=== PATIENT | male | born 1935 | race Caucasian/White ===

== ENCOUNTER 2017-02-03 09:51 | Observation (INO) ==
[2017-02-03 12:43] LABS: MANUAL DIFF NEEDED? NO
[2017-02-03 12:47] LABS: BASO% 0.2 % (0.0-0.8); EOS# 0.04 X1000 (0.0-0.7); EOS% 0.3 % (0.0-10.0); HEMOGLOBIN 16.7 g/dL (14.0-18.0); IMM GRAN# 0.35 X1000 (0.0-0.04); IMM GRAN% 2.4 % (0.0-0.5); LYMPH# 1.07 X1000 (1.2-3.4); LYMPH% 7.3 % (20.5-51.1); MCH 32.6 PG (27-31); MCHC 33.4 g/dL (33-37); MCV 97.5 FL (81-99); MONO% 8.8 % (1.7-9.3); MPV 10.4 FL (7.4-10.4); PLT 199 X1000 (130-400); RBC 5.13 XMIL (4.7-6.1)
[2017-02-03 12:57] LABS: INR 1.08; PROTIME 11.4 Seconds (9.2-11.7)
[2017-02-03 13:05] LABS: CALCIUM 8.4 mg/dL (8.8-10.2); POTASSIUM 4.2 mmol/L (3.5-5.1)
[2017-02-03] MEDS ORDERED: NS 250 ML ONE (13:29)
--- NOTE | 2017-02-03 14:41 | Diag Imaging Result Doc PS360 ---
EXAM: CHEST-PORTABLE HISTORY: PICC PLACEMENT TECHNIQUE: Portable upright COMPARISON: 01/09/2015 FINDINGS: There is a right-sided PICC line. Tip overlies the junction of the distal superior vena cava and right atrium. The lungs are well expanded. No cardiomegaly. There are no infiltrates. No pleural effusions identified. IMPRESSION: Right-sided PICC line in good position. Electronically signed by Trevin Morales 02/03/2017 2:38 PM
[2017-02-03 15:30] LABS: URINE MICRO REVIEW NEEDED? NO; URINE SOURCE CLEAN CATCH
[2017-02-03 15:37] LABS: BILIRUBIN URINE NEGATIVE (NEGATIVE); BLOOD URINE LARGE (NEGATIVE); COLOR YELLOW; GLUCOSE URINE NEGATIVE (NEGATIVE); LEUKOCYTES URINE MODERATE (NEGATIVE); NITRITE URINE POSITIVE (NEGATIVE); PROTEIN URINE TRACE mg/dL (NEGATIVE); SP GRAVITY URINE 1.017; TURBIDITY URINE HAZY (CLEAR); UROBILINOGEN URINE NORMAL (NORMAL)
[2017-02-03 15:38] LABS: UR EPITHELIAL CELLS <10 /HPF (<10); URINE BACTERIA 4+ /HPF; URINE CULTURE NEEDED? YES; URINE RBC <10 /HPF (<10); URINE WBC TNTC /HPF (<10)
--- NOTE | 2017-02-03 15:43 | EKG Report ---
Test Performed on : 02/03/2017 3:03:41 PM Test Reason : possible Afib Blood Pressure : / mmHG Vent. Rate : 056 BPM Atrial Rate : 056 BPM P-R Int : 196 ms QRS Dur : 146 ms QT Int : 416 ms P-R-T Axes : 051 -68 069 degrees QTc Int : 401 ms Sinus bradycardia. with occasional premature ventricular complexes. Left axis deviation Left bundle branch block Abnormal ECG When compared with ECG of 25-JAN-2015 13:00, premature ventricular complexes. are now present premature atrial complexes. are no longer present Left bundle branch block is now present Criteria for Septal infarct are no longer present Confirmed by Silvio Cross MD ([id number]) on 02/03/2017 8:39:17 PM
[2017-02-03] MEDS: INVANZ 1 GM/NS 1 GM/50 ML IVPB IV SCH (16:37)
[2017-02-03] MEDS ORDERED: AMBIEN PO SCH (21:00)
[2017-02-03] MEDS: LOPRESSOR PO SCH (21:24)
[2017-02-03] MEDS: ELIQUIS PO SCH (21:25)
--- NOTE | 2017-02-04 00:29 | HISTORY AND PHYSICAL ---
SUBJECT: The patient was evaluated in my office last week with back pain, dysuria. HISTORY OF PRESENT ILLNESS: He is an 81-year-old white gentleman, who was self- catheterizing for the bladder drainage for neurogenic bladder, under the care of Dr. Fountain in [place]. He has a low blood pressure. Advised to stop blood pressure medicine. After workup, the patient was found to have a significant urinary tract infection, with Pseudomonas more than 100,000, Citrobacter more than 100,000, resistant to all oral antibiotics, except Primaxin. After returning, he is a little better, and we will continue to monitor symptoms and signs of infection. Explained he needs IV antibiotics. He decided to be admitted to the hospital for IV Invanz. I would arrange outpatient antibiotics after PICC line. As a result, he was admitted to the hospital. PAST MEDICAL HISTORY: 1. Coronary artery disease, with 2 stents. 2. BPH. 3. Chronic renal failure, creatinine 1.6. 4. Hypertension. 5. Gout. 6. Chronic back pain. 7. Erectile dysfunction. 8. Metabolic syndrome. 9. Neurogenic bladder. 10. Paroxysmal atrial fibrillation, status post cardioversion. 11. Secondary polycythemia, due to testosterone. PAST SURGICAL HISTORY: 1. Cardiac stents. 2. Achilles tendon repair. MEDICATIONS: Hytrin 5 mg daily, Eliquis 5 mg p.o. b.i.d., Plavix 75 daily, Ambien 10 daily, metoprolol 25 p.o. b.i.d., allopurinol 100 daily, Multaq 400 mg daily. ALLERGIES: Sulfa drugs. SOCIAL HISTORY: , 5 kids. 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 Lives in [place]. No smoking. No alcohol. No drug abuse. FAMILY HISTORY: Father at 68, unknown cause. Mom at 95, unknown cause. HEALTH MAINTENANCE: Flu vaccine 2015. Pneumococcal vaccine 2012. Last prostate December 2016. Colonoscopy 2005 in [place]. REVIEW OF SYSTEMS: HEENT: No headache. No vision problem. No earache. No sore throat. Neck: No goiter. No lymphadenopathy. No bruit. Cardiopulmonary: No chest pain, shortness of breath, PND, orthopnea. Gastrointestinal: No nausea, vomiting, abdominal pain. Genitourinary: History of hesitancy, frequency, dysuria, and back pain. Neurologic: No focal symptoms or weakness. PHYSICAL EXAMINATION: VITAL SIGNS: Afebrile. Pulse is 69, blood pressure is 136/68, 5 feet 11 inches , 210 pounds. HEENT: Atraumatic, normocephalic. Pupils equal, react to light. TMs are normal. Nose and throat within normal limits. NECK: Supple. No lymphadenopathy. No goiter. CHEST: Bilateral air entry. HEART: Sounds are regular. ABDOMEN: Belly is soft, nontender. Good bowel sounds. RECTAL: Deferred. NEUROLOGIC: Nonfocal. No obvious neurological deficits. INVESTIGATIONS: CBC: White cell count 14, hematocrit 50, platelets 199,000. PT 11, INR 1.0. SMA-7: Sodium 138, potassium 4.2, chloride 103, BUN 29, creatinine 1.3. Calcium 8.4. Urine dipstick was positive for infection. Urine cultures at [facility] positive for Pseudomonas, Citrobacter. Resistant to all antibiotics, except Primaxin. EKG showed normal sinus, left bundle branch block. Chest x-ray stable, with PICC line on the right side. ASSESSMENT: An 81-year-old white gentleman, admitted to the hospital with back pain, dysuria, with a neurogenic bladder with self-catheterization, associated with Pseudomonas and Citrobacter, with elevated white cell count. PLAN: 1. IV Invanz and outpatient IV antibiotics for 2 weeks. 2. Paroxysmal atrial fibrillation, status post cardioversion. Continue on Eliquis and Multaq, and Lopressor 25 p.o. b.i.d. 3. Outlet obstruction with Hytrin. 4. Chronic insomnia, with Ambien. 5. Gout, on allopurinol. 6. Erectile dysfunction. On testosterone replacement, causing secondary polycythemia. 7. Chronic back pain, with spondylosis, stable. 8. Coronary artery disease, status post couple of stents. Currently, on Eliquis. Followed by Dr. Rosenbaum. 9. We will follow up. cc: MD SB Bundy
[2017-02-04] MEDS: LOPRESSOR PO SCH (08:28)
[2017-02-04] MEDS: ELIQUIS PO SCH (08:28)
[2017-02-04] MEDS ORDERED: HYTRIN PO SCH (09:00)
[2017-02-04] MEDS ORDERED: MULTAQ PO SCH (09:00)
[2017-02-04] MEDS ORDERED: ZYLOPRIM PO SCH (09:00)
[2017-02-04] MEDS ORDERED: PLAVIX PO SCH (09:00)
[2017-02-04] MEDS: INVANZ 1 GM/NS 1 GM/50 ML IVPB IV SCH ×2 (11:45→14:00)
[2017-02-04 14:31] VITALS: BP 127/64
--- NOTE | 2017-02-08 12:26 | DISCHARGE SUMMARY ---
ADMISSION DATE: 02/03/2017 DISCHARGE DATE: 02/04/2017 DISCHARGING DIAGNOSIS: 1. Chronic back pain due to urinary tract infection associated with Pseudomonas aeruginosa and Citrobacter resistant to all oral antibiotics except Primaxin. SECONDARY DIAGNOSES: 1. Coronary artery disease with 2 stents. 2. Benign prostatic hypertrophy. 3. Neurogenic bladder. 4. Chronic kidney disease creatinine 1.4. 5. Hypertension. 6. Gout. 7. Chronic back pain. 8. Erectile dysfunction. 9. Metabolic syndrome. 10. Neurogenic bladder. 11. Paroxysmal atrial fibrillation status post cardioversion and secondary polycythemia due to testosterone. PROCEDURES: PICC line on the right side. [facility] consult for 2 weeks of IV antibiotics with meropenem. BRIEF HISTORY: Please see the H and P that was done on 02/03/2017. In brief he is 81-year-old white gentleman admitted to the hospital for observation status with back pain, dysuria associated with elevated white cell count. Urine was found to have Pseudomonas aeruginosa and Citrobacter resistant to all oral antibiotics except IV Primaxin. HOSPITAL COURSE: At the time of admission his white cell count 14,000. Repeat urine cultures positive for Citrobacter. He was doing self-cath under the care of Dr. Chang in [place]. He was placed on PICC line and arranged outpatient antibiotics with [facility] for 2 weeks. At the time of discharge he was bleeding on the site of the PICC line. INR is normal. He was taking Plavix and Eliquis. Advised the patient to stop the Plavix. LABS: CBC, white cell count 14, hematocrit 50, platelets 199,000, PT 11, INR 1.0. Urine cultures are positive for Citrobacter. SMA 7, sodium 138, potassium 4.2, chloride 103, BUN 39, creatinine 1.3. DISCHARGE INSTRUCTIONS: 1. Hytrin 5 mg daily, Eliquis 5 mg p.o. b.i.d., hold the Plavix, Ambien 10 as needed, metoprolol 25 p.o. b.i.d., allopurinol 100 daily, Multaq 400 daily, IV antibiotics with meropenem 1 g q.8 as per [facility] in 2 weeks. cc: Dr. Chang in [place] Hector Junior MD
== END 2017-02-04 16:44 | disposition home health service (06) ==
LOC: DIRADM 09:51 → INTOOBSV 09:51 → 3N 11:42
PROVIDERS: ADMIT Internal Medicine; ATTEND Internal Medicine

== ENCOUNTER 2018-06-23 05:12 | Observation (INO) ==
[2018-06-16 09:51] LABS: HEMATOCRIT 57.7 % (42.0-52.0); MCH 30.6 PG (27-31); MCHC 31.2 g/dL (33-37); MPV 10.2 FL (7.4-10.4); RBC 5.89 XMIL (4.7-6.1); WBC 8.49 X1000 (4.8-10.8)
[2018-06-16 10:02] LABS: INR 0.89; PROTIME 12.8 Seconds (11.0-16.0)
[2018-06-16 10:03] LABS: PTT 27.7 Seconds (22.3-41.8)
[2018-06-16 10:17] LABS: CALCIUM 8.9 mg/dL (8.8-10.2); CREATININE 1.2 mg/dL (0.7-1.2); POTASSIUM 4.7 mmol/L (3.5-5.1)
[2018-06-23] MEDS ORDERED: KEFZOL 1 GM/D5W 2 GM/100 ML IVPB ONE (05:41)
[2018-06-23] MEDS ORDERED: LR 1,000 ML ONE ×2 (05:41→08:57)
[2018-06-23] MEDS ORDERED: XYLOCAINE-MPF 2% ONE (06:30)
[2018-06-23] MEDS ORDERED: QUELICIN (DOSE) ONE (06:30)
[2018-06-23] MEDS ORDERED: FENTANYL ONE (06:30)
[2018-06-23] MEDS ORDERED: DIPRIVAN 1% ONE (06:30)
[2018-06-23] MEDS ORDERED: ROBINUL ONE (06:30)
[2018-06-23] MEDS ORDERED: EPHEDRINE ONE (07:02)
[2018-06-23] MEDS ORDERED: SODIUM CHLORIDE 0.9% 10 ML ONE (07:02)
[2018-06-23] MEDS ORDERED: DECADRON ONE (07:37)
[2018-06-23] MEDS ORDERED: ZOFRAN ONE (07:37)
[2018-06-23] MEDS ORDERED: B & O 15A SUPP ONE (08:42)
[2018-06-23 10:02] LABS: HEMATOCRIT 53.3 % (42.0-52.0); HEMOGLOBIN 16.7 g/dL (14.0-18.0); MCH 30.8 PG (27-31); MCHC 31.3 g/dL (33-37); MCV 98.3 FL (81-99); MPV 10.5 FL (7.4-10.4); RBC 5.42 XMIL (4.7-6.1); RDW 14.7 % (11.5-14.5); WBC 10.67 X1000 (4.8-10.8)
[2018-06-23] MEDS ORDERED: B & O 15A SUPP PR PRN (10:15)
[2018-06-23] MEDS ORDERED: TYLENOL PO PRN (10:15)
[2018-06-23] MEDS ORDERED: LABETALOL IV PRN (10:15)
[2018-06-23] MEDS ORDERED: ZOFRAN IV PRN (10:15)
[2018-06-23] MEDS: NORCO-5 PO PRN ×3 (10:17→21:02)
[2018-06-23 10:58] LABS: CALCIUM 8.1 mg/dL (8.8-10.2); CREATININE 1.4 mg/dL (0.7-1.2); POTASSIUM 4.8 mmol/L (3.5-5.1)
[2018-06-23] MEDS ORDERED: HEPARIN SUBQ SCH (12:00)
--- NOTE | 2018-06-23 13:57 | OPERATIVE NOTE ---
PROCEDURE DATE: 06/23/2018 PREOPERATIVE DIAGNOSES: 1. Benign prostatic hypertrophy. 2. Neurogenic bladder on CIC. POSTOPERATIVE DIAGNOSES: 1. Benign prostatic hypertrophy. 2. Neurogenic bladder on CIC. PROCEDURE PERFORMED: 1. Cystoscopy. 2. Transurethral resection of prostate. SURGEON: Frandy Kidd MD. COMPLICATIONS: None. BLOOD LOSS: 50 mL. SPECIMENS REMOVED: Prostate chips. DRAINS: 22-Armenian 3-way catheter. ANESTHESIA: LMA. OPERATIVE FINDINGS: Patient had a normal urethra. No evidence of stricture disease or papillary lesions. On entering to the posterior urethra, patient's prostate was encountered. It was a quite large with prostate size 60-80 g. I was able to enter into the bladder. Patient had significant trabeculations and cellules throughout the bladder. Both ureteral orifices were visualized with efflux of clear urine. The patient had a median lobe and trilobar hypertrophy. The patient subsequently underwent a transurethral resection of prostate and had good hemostasis at the end of the procedure. The patient had an uneventful placement of 22-Armenian 3-way catheter and then was awoken and taken to recovery. INDICATION FOR PROCEDURE: Mr. Zurita is an 82-year-old with a history of BPH , status post TURP 15-20 years ago at an outside hospital, who has required CIC for the past 12 years. Over the past 3 to 4 months, patient has had persistent difficulty with catheterization, leading to hematuria and presents today for definitive management of his BPH. The patient has had a prior TURP procedure done, but his prostate tissue has regrown. The patient has trilobar hypertrophy of the prostate with evidence of an end-stage bladder. Talking with the patient , it was recommended to try proceeding with a TURP to see if this helps with his catheterizations. Risks, benefits and alternatives of surgical procedure were discussed with patient and patient elected to proceed. DESCRIPTION OF PROCEDURE: After informed consent was obtained, the patient was brought to the operating room, placed on the operative table in supine position. He received preop antibiotics, and then was placed into a dorsal lithotomy position. He underwent general anesthesia with LMA placement. The patient was prepped and draped in usual sterile fashion. A preop time-out was performed with all parties in agreement, including anesthesia, surgical and nursing staff. Next a 21-Armenian cystourethroscope was inserted through the urethra showing normal caliber urethra, no evidence of stricture disease or papillary lesions. On entry into the posterior urethra, I encountered a large prostate with trilobar hypertrophy measuring approximately 60-80 g was able to enter into the bladder and the entire bladder was inspected which showed multiple trabeculations as well as small diverticulum and cellules. The entirety of the bladder was inspected with no evidence of any papillary lesions or tumors. The patient had no evidence of any bladder stones. Both ureteral orifices were visualized and appeared to be normal. Following complete evaluation of the bladder, the cystourethroscope was completely removed and a 25-Armenian resectoscope using the internal obturator was then passed through the urethra and into the bladder. Within the bladder, both ureteral orifices were again visualized and marked and transurethral resection of prostate was started on the median lobe and this was taken down at the bladder neck near to the capsule, and creating a channel all the way to the verumontanum following adequate resection of the median lobe. I then place my attention to resecting the left lateral lobe. This was systematically resected down to the verumontanum. Following this, attention was then placed starting on the right side at the 6 o'clock position and moving towards the 12 o'clock position, systematically resected the right lateral lobe. Following complete removal, I then resected a portion of the anterior lobe. After this was all the chips were removed from the bladder using Ellik. Both ureteral orifices were far away from the resection. Hemostasis was then obtained with electrocautery and good hemostasis was visualized. Irrigation was turned off with no evidence of active bleeding. This was cycled multiple times. Following this, the patient's bladder was left full and a 22-Armenian 3-way catheter was inserted through the urethra and into the bladder. It was inflated with 30 mL of sterile water and was hand irrigated with return of light pink irrigant. The patient was then started on continuous bladder irrigation with normal saline. The patient was awoken and was taken to recovery in stable condition. The patient will be admitted overnight and remain on continuous bladder irrigation, likely would keep his catheter in place until next week and then remove it for voiding trial and return to clean intermittent catheterization. cc: Frandy Kidd MD [facility]ITAL[facility]ton
[2018-06-23] MEDS ORDERED: KEFZOL 2 GM/D5W 2 GM/50 ML IVPB IV SCH (14:50)
[2018-06-23] MEDS ORDERED: LR 1,000 ML IV SCH (18:00)
[2018-06-23] MEDS: KEFZOL 2 GM/D5W 2 GM/50 ML IVPB IV SCH (18:08)
[2018-06-23] MEDS ORDERED: PATIENT'S OWN MED IM SCH (19:00)
[2018-06-23] MEDS: LOPRESSOR PO SCH (21:01)
[2018-06-23] MEDS: COLACE PO SCH (21:01)
[2018-06-23] MEDS: PERIDEX MT SCH (21:01)
[2018-06-24] MEDS: KEFZOL 2 GM/D5W 2 GM/50 ML IVPB IV SCH ×2 (01:39→09:33)
[2018-06-24 07:12] LABS: HEMATOCRIT 47.3 % (42.0-52.0); HEMOGLOBIN 14.9 g/dL (14.0-18.0); MCH 31.2 PG (27-31); MCHC 31.5 g/dL (33-37); MPV 10.8 FL (7.4-10.4); RBC 4.78 XMIL (4.7-6.1); RDW 14.7 % (11.5-14.5); WBC 12.76 X1000 (4.8-10.8)
[2018-06-24 07:32] LABS: CALCIUM 8.1 mg/dL (8.8-10.2); CREATININE 1.2 mg/dL (0.7-1.2); POTASSIUM 4.6 mmol/L (3.5-5.1)
--- NOTE | 2018-06-24 08:18 | PROGRESS NOTE ---
DATE: 06/24/2018 SUBJECTIVE: No acute events overnight. The patient resting comfortably in bed. His CBI has been slowed down; it almost off this morning. He had some clots yesterday, but none overnight. The patient denies any suprapubic tenderness or pain within his bladder. He did tolerate p.o. intake yesterday. Overall, he appears to be doing well. Denies any nausea or vomiting , no lightheadedness. OBJECTIVE: Vital Signs: Temperature 98.5 degrees, heart rate 53, blood pressure 132/58, oxygen saturation 100% on room air. General: No acute distress. Resting comfortably in bed. Pulmonary: Good respiratory effort without audible wheezing or rales. Cardiovascular: No evidence of lower extremity edema. Regular rate and rhythm. Abdomen: Soft, nontender, nondistended. Genitourinary: Urethral catheter in place with light pink urine on slow drip of CBI. LABORATORY DATA: White blood cell count 12.7, hemoglobin 14.9, hematocrit 47.6 , platelets 177,000. Sodium 139, potassium 4.6, chloride 105, bicarbonate 25, BUN 21, creatinine 1.2, glucose 87. ASSESSMENT AND PLAN: Mr. Zurita is an 82-year-old who is postoperative day 1 from a transurethral resection of the prostate. Overall, the patient has been doing well. Denies any pain from his catheter or suprapubic tenderness. Catheter has been draining well with light pink irrigant on continuous bladder irrigation. I flushed his catheter this morning , and no clots were returned. We will plan to stop the continuous bladder irrigation this morning, and if his urine remains clear, we will plan to discharge later today. We will plan to get him up moving around this morning to insure that it remains draining well. Continues home medications. We will hold off on any anticoagulation due to red urine this morning, will continue SCDs. Continue regular diet. Pain medications as required. cc: MD SB Arrieta
[2018-06-24] MEDS: COLACE PO SCH (09:33)
[2018-06-24] MEDS: LOPRESSOR PO SCH (09:33)
[2018-06-24] MEDS: MULTAQ PO SCH ×2 (09:33→09:35)
[2018-06-24] MEDS: PERIDEX MT SCH (09:34)
[2018-06-24 11:50] VITALS: BP 129/60
== END 2018-06-24 13:54 | disposition home or self-care (01) ==
LOC: 4N 05:12 → OR 05:12
PROVIDERS: ADMIT Urology; ATTEND Urology
PROC: UR.TURP (2018-06-23 06:50)
CPT/HCPCS: 80048; 85027; 85610; 85730; 88305; 88313; 94761; 94799; A9270; J0330; J0690; J1100; J2405; J3010; J7120

== ENCOUNTER 2018-11-04 10:15 | Inpatient (IN) ==
--- NOTE | 2018-11-04 12:25 | Diag Imaging Result Doc PS360 ---
EXAM: CHEST-2 VIEWS HISTORY: acute asthma TECHNIQUE: Chest two views COMPARISON: 12/27/2017 FINDINGS: The lungs are well expanded. The heart is not enlarged. The vessels are not distended. There are no infiltrates. No pleural effusions. IMPRESSION: No acute abnormality. Electronically signed by Trevin Morales 11/04/2018 12:23 PM
[2018-11-04 12:28] LABS: ALLEN TEST YES; BE -2.5 mmoll (-3.0-3.0); BLOOD TYPE ARTERIAL; HCO3-(ACT) 22.9 mmoll (20.0-26.0); METHB 1.1 % (0.0-1.5); O2(CT) 19.6 mL/dL (15.0-23.0); O2HB 95.8 % (95.0-99.0); PCO2(98.6) 35 mmHg (35-45); PO2(98.6) 87 mmHg (60-100); SAMPLE BLOOD; SAO2 98.5 % (95.0-100.0); THB 14.5 g/dL (11.5-17.4)
[2018-11-04 12:29] LABS: MODALITY ROOM AIR
[2018-11-04] MEDS ORDERED: LASIX IV ONE (13:00)
--- NOTE | 2018-11-04 13:01 | EKG Report ---
Test Performed on : 11/04/2018 12:42:08 PM Test Reason : acute asthma Blood Pressure : / mmHG Vent. Rate : 068 BPM Atrial Rate : 068 BPM P-R Int : 190 ms QRS Dur : 144 ms QT Int : 382 ms P-R-T Axes : 079 -60 076 degrees QTc Int : 406 ms Sinus rhythm. with frequent premature ventricular complexes. Left axis deviation Left bundle branch block Abnormal ECG When compared with ECG of 27-DEC-2017 12:00, premature ventricular complexes. are now present premature atrial complexes. are no longer present Confirmed by Rigo MCLEAN, Cristiano Briones ([id number]) on 11/07/2018 9:29:21 AM
[2018-11-04 13:09] LABS: HEMOGLOBIN 13.6 g/dL (14.0-18.0); MCH 26.1 PG (27-31); MCHC 30.4 g/dL (33-37); RBC 5.22 XMIL (4.7-6.1)
[2018-11-04 13:17] LABS: HEMATOCRIT 44.8 % (42.0-52.0); MCV 85.8 FL (81-99); MPV 10.5 FL (7.4-10.4); RDW 16.9 % (11.5-14.5); WBC 17.5 X1000 (4.8-10.8)
[2018-11-04 13:18] LABS: AGAP 12; BUN 28 mg/dL (8-22); CALCIUM 9.3 mg/dL (8.8-10.2); CHLORIDE 103 mmol/L (98-107); CK PROFILE 106 U/L (24-204); COSMO 285; CREATININE 1.1 mg/dL (0.7-1.2); ESTIMATED GFR > 60; GLUCOSE 126 mg/dL (70-104); POTASSIUM 4.3 mmol/L (3.5-5.1); SODIUM 139 mmol/L (136-145); TCO2 24 mmol/L (25-35)
[2018-11-04] MEDS: ZOSYN 3.375 GM in NS 50 ML IV SCH ×2 (13:38→20:15)
[2018-11-04] MEDS: SOLU-MEDROL IV SCH ×2 (13:38→20:15)
[2018-11-04] MEDS: DUONEB (A & A) INH PRN (14:26)
[2018-11-04] MEDS: LOVENOX SUBQ SCH (18:32)
[2018-11-04] MEDS: PEPCID IV SCH (20:15)
[2018-11-04] MEDS: AMBIEN PO SCH (20:15)
[2018-11-04] MEDS: LOPRESSOR PO SCH (20:15)
--- NOTE | 2018-11-04 21:07 | HISTORY AND PHYSICAL ---
CHIEF COMPLAINT: Shortness of breath, cough, wheezing. No swelling of feet. HISTORY OF PRESENT ILLNESS: He is an 83-year-old white gentleman. He came in my office with the above symptoms, worsening after seeing on Wednesday. He is markedly bronchospastic, hypoxic. He failed to improve with outpatient treatment. Chest x-ray stable on 11/01/2018. PAST MEDICAL HISTORY: CAD, with 2 stents in 2001; chronic renal failure, creatinine 1.6; hypertension; gout; chronic back pain due to bulging disk; erectile dysfunction; neurogenic bladder; status post TURP, prostate cancer; paroxysmal atrial fibrillation, status post cardioversion; polycythemia due to testosterone; subarachnoid bleed, off anticoagulants. PAST SURGICAL HISTORY: Prior stent placement, Achilles tendon repair, TURP in 2018. MEDICATIONS: Allopurinol 100 mg once a day, Ambien 10 mg at bedtime, Lopressor 50 p.o. b.i.d., Multaq 400 daily, Viagra 100 as needed. ALLERGIES: Not known. SOCIAL HISTORY: , 5 children. 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 No smoking, no alcohol, no drug abuse. Living in [place]. FAMILY HISTORY: Father at the age of 69, unknown cause. Mother at 95, unknown cause. HEALTH MAINTENANCE: Flu vaccine in 02/2018, pneumococcal 2017. Last prostate exam 02/2018, colonoscopy in 2015 in [place]. REVIEW OF SYSTEMS: HEENT: No headache. No vision problem. No earache. No sore throat. Neck: No goiter. No lymphadenopathy. No bruit. Cardiopulmonary: Shortness of breath, cough, wheezing. No swelling of legs. GI: No nausea, vomiting or abdominal pain. : No history of hesitancy, frequency or dysuria. No neurological symptoms or weakness. PHYSICAL EXAMINATION: VITAL SIGNS: Temperature is 98.5 degrees, pulse is 70, blood pressure 120/86. On 2 L nasal cannula 97%. GENERAL: The patient is in mild respiratory distress. HEENT: Atraumatic, normocephalic. Pupils equal and reactive to light. TMs are normal. Nose and throat within normal limits. NECK: Supple. No lymphadenopathy. CHEST: Bilateral air entry. Extremely wheezing. HEART: Sounds are regular. ABDOMEN: Belly is soft, obese, nontender. EXTREMITIES: No peripheral edema. NEUROLOGIC: No obvious neurological deficits. LABORATORY DATA: White cell count 17.5, hematocrit 44, platelets 230,000. ABG: PH is 7.40, pCO2 is 35, pO2 is 87, bicarbonate 22 on room air. Sodium 139, potassium 4.3, chloride 103, BUN 28, creatinine 1.1, glucose 126. CK is normal. ProBNP 3729. DIAGNOSTIC DATA: Chest x-ray stable. No infiltrates. ASSESSMENT AND PLAN: 1. An 83-year-old white gentleman admitted to the hospital with asthmatic bronchitis, elevated proBNP. Will be treated for both asthmatic bronchitis and rule out cardiac asthma. The patient was given Lasix. Intravenous Zosyn q.8, intravenous steroids. 2. Deep venous thrombosis prophylaxis with Lovenox. 3. Gastrointestinal prophylaxis with intravenous Pepcid. 4. Reconcile home medicines. 5. Intermittent atrial fibrillation, currently sinus with premature ventricular contractions, on metoprolol 50 p.o. b.i.d. and Multaq. 6. The patient is not a candidate for anticoagulation due to subarachnoid bleed. 7. History of prostate cancer, status post transurethral resection of the prostate, stable. 8. Secondary polycythemia, improving. 9. Hypogonadism. Taking testosterone despite prostate cancer. He knows the risks and benefits. 10. Last stress test was done by Dr. Rosenbaum in 06/2018, reported ischemic cardiomyopathy, ejection fraction 30%. Continue telemetry monitoring. We will follow up. cc: Hector Junior MD
[2018-11-05] MEDS: SOLU-MEDROL IV SCH ×4 (04:11→22:03)
[2018-11-05] MEDS: ZOSYN 3.375 GM in NS 50 ML IV SCH ×3 (04:11→22:03)
[2018-11-05] MEDS ORDERED: MIRALAX PO ONE (07:17)
[2018-11-05] MEDS ORDERED: LASIX IV ONE (07:18)
[2018-11-05] MEDS ORDERED: KLOR-CON PO ONE (07:19)
--- NOTE | 2018-11-05 08:55 | PROGRESS NOTE ---
DATE: 11/05/2018 SUBJECTIVE: Mr. Zurita is an 83-year-old white gentleman admitted with chest congestion, cough, wheezing, shortness of breath, not responding to outpatient treatment. The patient went to see PMD and subsequently admitted for further care. The patient was started on treatment this morning. This morning, patient is feeling better. Cough and chest congestion improving. The patient is still have some wheezing, mild cough. No high-grade fever or chills. Denied any nausea or vomiting. No diarrhea. No typical chest pain or palpitation. Denied any dysuria or hematuria. The patient is complaining of being constipated. No leg swelling. PAST MEDICAL HISTORY: Significant for chronic kidney failure, hypertension, gout, chronic back pain due to degenerative disk disease, hypogonadism, neurogenic bladder, history of prostate cancer, paroxysmal atrial fibrillation, polycythemia, subarachnoid hemorrhage. PAST SURGICAL HISTORY: Patient had stent placement, Achilles tendon repair, and TURP in 2019. OBJECTIVE: Vital Signs: His vital signs: Blood pressure 150/83, pulse 63, respirations 16, temperature 97.7 degrees. Skin: Normal turgor. No rash or petechiae. HEENT: Head atraumatic, normocephalic. [place] conjunctivae. Anicteric sclerae. Extraocular muscle movement normal. Fundus cannot be penetrated. Good oral hygiene. No tonsillopharyngeal congestion or exudate. Ears and nose benign. Neck: Supple. No JVD. Lungs: Bilateral expiratory wheezing. No movement of accessory muscle of respiration. CVS: S1 and S2 heard. Abdomen: Soft, globular. Bowel sounds present. Extremities: No cyanosis, clubbing. No acute DVT. FRONT TENDER: Alert, awake. Able to move all 4 limbs. LABORATORY DATA: Revealed WBC count 17.5, hemoglobin 13.6, hematocrit 44.8, platelet count 213. Blood gas done on admission: A pH 7.4, pCO2 35 PO2 was 87. Electrolytes were fairly benign. ProBNP was 3729. IMAGING STUDIES: Chest x-ray revealed no acute abnormality. CONSIDERATION: Acute estimated bronchitis. His other problems include: 1. Paroxysmal atrial fibrillation, not a candidate for anticoagulation. 2. Hypertension. 3. Hypogonadism. 4. History of prostate cancer. The patient is on intravenous steroid, intravenous antibiotics. We will continue current treatment. The patient was complaining of being constipated; I am going to give him MiraLAX. Continue rest of the treatment and close observation. cc: MD Hector Coelho MD
[2018-11-05] MEDS: PEPCID IV SCH (11:10)
[2018-11-05] MEDS: COZAAR PO SCH (11:10)
[2018-11-05] MEDS: SODIUM CHLORIDE 0.9% INJ SCH (11:10)
[2018-11-05] MEDS: LOPRESSOR PO SCH ×3 (11:10→22:10)
[2018-11-05] MEDS: MULTAQ PO SCH (11:10)
[2018-11-05] MEDS: DUONEB (A & A) INH PRN ×2 (11:42→23:34)
[2018-11-05] MEDS: LOVENOX SUBQ SCH (18:42)
[2018-11-05] MEDS: AMBIEN PO SCH (22:04)
[2018-11-06] MEDS: PEPCID IV SCH ×3 (00:03→22:34)
[2018-11-06] MEDS: SODIUM CHLORIDE 0.9% INJ SCH ×3 (00:04→22:34)
[2018-11-06] MEDS: DUONEB (A & A) INH PRN ×4 (03:21→21:02)
[2018-11-06] MEDS: SOLU-MEDROL IV SCH ×3 (06:27→22:27)
[2018-11-06] MEDS: ZOSYN 3.375 GM in NS 50 ML IV SCH ×2 (06:27→16:29)
[2018-11-06 07:18] LABS: ALB/GLOB RATIO 1.2; ALBUMIN 3.6 g/dL (3.5-5.0); CALCIUM 8.3 mg/dL (8.8-10.2); CREATININE 1.6 mg/dL (0.7-1.2); MAGNESIUM 2.1 mg/dL (1.5-2.7); POTASSIUM 3.8 mmol/L (3.5-5.1); TOTAL BILIRUBIN 0.66 mg/dL (0.20-1.00); TOTAL PROTEIN 6.6 g/dL (6.3-8.3)
[2018-11-06 07:19] LABS: BASO# 0.02 X1000 (0.0-0.2); BASO% 0.1 % (0.0-0.8); HEMATOCRIT 48.9 % (42.0-52.0); HEMOGLOBIN 15.2 g/dL (14.0-18.0); IMM GRAN# 0.17 X1000 (0.0-0.04); IMM GRAN% 0.5 % (0.0-0.5); LYMPH# 1.12 X1000 (1.2-3.4); LYMPH% 3.4 % (20.5-51.1); MCH 25.5 PG (27-31); MCHC 31.1 g/dL (33-37); MONO# 2.32 X1000 (0.11-0.59); NEUT# 29.36 X1000 (1.4-6.5); PLT 282 X1000 (130-400); RBC 5.96 XMIL (4.7-6.1); RDW 17.2 % (11.5-14.5); WBC 32.99 X1000 (4.8-10.8)
[2018-11-06 07:39] LABS: LYMPHS 16 % (21-51); MONO 2 % (1-9); SEGS 80 % (42-75)
--- NOTE | 2018-11-06 10:27 | PROGRESS NOTE ---
DATE: 11/06/2018 SUBJECTIVE: Mr. Olson is feeling better. Does have cough with scanty sputum production. No high-grade fever or chills. Denied any nausea or vomiting. The patient does have some back pain. No dysuria or hematuria. No diarrhea, blood, or mucus in the stool. Patient admitted with acute asthmatic bronchitis, known case of prostate cancer, history of gout, hypertension. OBJECTIVE: Vital Signs: Noted. Neck: Supple. No JVD. Lungs: Bibasilar crepitations. Occasional wheezing. CVS: S1 and S2 heard. Abdomen: Soft, globular. Bowel sounds present. BEREAVEMENT COORDINATOR: Alert, awake, able to move all 4 limbs. Vague tenderness to lumbosacral spine. LABORATORY DATA: Lab data done today did reveal leukocytosis with left shift. Clinically, the patient does not look toxic. We are going to repeat blood work tomorrow. BUN 36, creatinine 1.6. CONSIDERATION: 1. Acute asthmatic bronchitis. 2. Leukocytosis. 3. Paroxysmal atrial fibrillation. 4. Hypertension. 5. Hypogonadism. Will repeat blood work tomorrow. I am going to add doxycycline. Continue rest of the treatment and close observation. Overall plan was discussed with the patient, and he is in agreement. cc: MD Hector Coelho MD
[2018-11-06] MEDS: MULTAQ PO SCH (10:57)
[2018-11-06] MEDS: COZAAR PO SCH (10:57)
[2018-11-06] MEDS: LOPRESSOR PO SCH ×2 (11:04→22:27)
[2018-11-06] MEDS: DOXYCYCLINE PO SCH ×2 (11:15→22:27)
[2018-11-06] MEDS: LOVENOX SUBQ SCH ×2 (16:29→17:11)
[2018-11-06] MEDS: AMBIEN PO SCH (22:28)
[2018-11-07] MEDS: ZOSYN 3.375 GM in NS 50 ML IV SCH ×3 (00:25→17:26)
[2018-11-07] MEDS: DUONEB (A & A) INH PRN ×4 (03:22→19:26)
[2018-11-07] MEDS: SOLU-MEDROL IV SCH ×3 (06:29→22:20)
[2018-11-07 06:38] LABS: BASO# 0.01 X1000 (0.0-0.2); HEMATOCRIT 46.8 % (42.0-52.0); HEMOGLOBIN 14.5 g/dL (14.0-18.0); IMM GRAN# 0.13 X1000 (0.0-0.04); IMM GRAN% 0.6 % (0.0-0.5); LYMPH# 0.53 X1000 (1.2-3.4); LYMPH% 2.3 % (20.5-51.1); MCH 25.3 PG (27-31); MCV 81.7 FL (81-99); MPV 10.4 FL (7.4-10.4); NEUT# 21.87 X1000 (1.4-6.5); NEUT% 94.1 % (42.2-75.2); PLT 256 X1000 (130-400); RBC 5.73 XMIL (4.7-6.1); RDW 17.2 % (11.5-14.5); WBC 23.24 X1000 (4.8-10.8)
--- NOTE | 2018-11-07 06:39 | Diag Imaging Result Doc PS360 ---
EXAM: CHEST-1 VIEW HISTORY: cough TECHNIQUE: Chest single view COMPARISON: 11/04/2018 FINDINGS: The lungs are well expanded. The heart is not enlarged. The vessels are mildly distended. There are no infiltrates. No effusion identified. IMPRESSION: Mild pulmonary edema. Electronically signed by Trevin Morales 11/07/2018 6:37 AM
[2018-11-07 07:22] LABS: ALB/GLOB RATIO 1.2; ALBUMIN 3.4 g/dL (3.5-5.0); CREATININE 1.7 mg/dL (0.7-1.2); MAGNESIUM 2.2 mg/dL (1.5-2.7); POTASSIUM 4.4 mmol/L (3.5-5.1); TOTAL BILIRUBIN 0.76 mg/dL (0.20-1.00); TOTAL PROTEIN 6.3 g/dL (6.3-8.3)
[2018-11-07] MEDS: LOPRESSOR PO SCH ×2 (09:12→22:20)
[2018-11-07] MEDS: COZAAR PO SCH (09:12)
[2018-11-07] MEDS: DOXYCYCLINE PO SCH ×2 (09:12→22:20)
[2018-11-07] MEDS: MULTAQ PO SCH (09:13)
[2018-11-07] MEDS: SODIUM CHLORIDE 0.9% INJ SCH (09:29)
[2018-11-07] MEDS: PEPCID IV SCH ×2 (09:29→22:20)
[2018-11-07] MEDS: LOVENOX SUBQ SCH (17:26)
--- NOTE | 2018-11-07 21:59 | PROGRESS NOTE ---
DATE: 11/07/2018 SUBJECTIVE: The patient is a little better, and wheezing is improved. REVIEW OF SYSTEMS: None reported. OBJECTIVE: HEENT Exam: Within normal limits. Neck: Supple. Chest: Bilateral air entry. Scattered wheezing. Cardiovascular: Heart sounds are distant. Abdomen: Belly is soft, nontender. Good bowel sounds. Neurological: No neurological deficits. Extremities: No peripheral edema noted. LABORATORY DATA: CBC: White cell count 23, hematocrit 46, platelets 256,000. SMA 7: Sodium 137, potassium 4.4, chloride 104, BUN 40, creatinine 1.7, glucose 113. LFTs were normal. ASSESSMENT AND PLAN: 1. Intermittent atrial fibrillation on Multaq 400 daily. Deep venous thrombosis and gastrointestinal prophylaxis with Lovenox and Pepcid. 2. Asthmatic bronchitis on IV Zosyn and doxycycline 100 p.o. b.i.d. and Solu- Medrol. 3. Hypertension on Cozaar. 4. Chronic insomnia. Ambien. 5. Prostate cancer, stable. Slowly improving. Continue present treatment, and we will follow up. LEVEL OF DOCUMENTATION: [25]minutes. cc: Hector Junior MD [facility]
[2018-11-07] MEDS: AMBIEN PO SCH (22:21)
[2018-11-08] MEDS: ZOSYN 3.375 GM in NS 50 ML IV SCH ×2 (01:27→08:40)
[2018-11-08] MEDS: SOLU-MEDROL IV SCH (05:38)
[2018-11-08 07:29] VITALS: BP 148/85
[2018-11-08] MEDS: DUONEB (A & A) INH PRN (08:07)
[2018-11-08] MEDS: LOPRESSOR PO SCH (08:37)
[2018-11-08] MEDS: MULTAQ PO SCH (08:37)
[2018-11-08] MEDS: COZAAR PO SCH (08:38)
[2018-11-08] MEDS: DOXYCYCLINE PO SCH (08:38)
[2018-11-08] MEDS: PEPCID IV SCH (08:45)
[2018-11-08] MEDS: SODIUM CHLORIDE 0.9% INJ SCH (08:45)
--- NOTE | 2018-11-09 05:57 | DISCHARGE SUMMARY ---
ADMISSION DATE: 11/04/2018 DISCHARGE DATE: 11/08/2018 DISCHARGING DIAGNOSIS: Acute asthmatic bronchitis. SECONDARY DIAGNOSES: 1. Coronary artery disease with 2 stents. 2. Chronic renal failure with creatinine 1.6. 3. Hypertension. 4. Gout. 5. Chronic back pain due to bulging disk. 6. 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 7. Prostate cancer, status post transurethral resection of prostate. 8. Paroxysmal atrial fibrillation status post cardioversion. 9. 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 10. History of subarachnoid bleed off anticoagulants. BRIEF HISTORY: Please see the H and P that was done on 11/04/2018. In brief, he is an 82-year- old white gentleman with the above problems who was treated with asthmatic bronchitis, cough, congestion, and wheezing. He did not have any swelling of feet. Chest x-ray was stable. He was started on oxygen, bronchodilators, IV steroids, IV antibiotics and IV Lasix. Further follow-up was uneventful. LABORATORY: CBC: White cell count 23 due to elevation from steroids, hematocrit 46.8, and platelets 256,000. ABG on room air pH is 7.40, pCO2 35, PO2 87, SMA 7, sodium 137, potassium 4.4, BUN 40, creatinine 1.7, and glucose 113. Liver function tests were normal. ProBNP 4000. Cardiac enzymes were negative. Chest x-ray was mild CHF. EKG sinus rhythm with some PVCs. DISCHARGE INSTRUCTIONS: 1. Flu vaccine in 2018, pneumococcal 02/19/2018. 2. Metoprolol 50 p.o. b.i.d. 3. Multaq 400 daily. 4. Ambien 10 at bedtime. 5. Levaquin 500 daily. 6. Medrol Dosepak. 7. Breo 1 puff daily. 8. Lasix 20 daily. 9. He is not a candidate for anticoagulation due to bleeding. 10. He is taking testosterone shot at his request given the underlying prostate cancer and Viagra as needed. 11. Follow up in my office next week. cc: Hector Junior MD
== END 2018-11-08 10:48 | disposition home or self-care (01) | DRG 203 ==
LOC: DIRADM 10:15 → 3N 10:37 → 4N 10:42
PROVIDERS: ADMIT Internal Medicine; ATTEND Internal Medicine
CPT/HCPCS: 71010; 71020; 71045; 71046; 80048; 80053; 82550; 82805; 82948; 83735; 83880; 85025; 85027; 93005; 93010; 94640; 94761; A9270; J1650; J1940; J2543; J2920; J2930; S0028; XXXXX

== ENCOUNTER 2018-11-14 09:07 | Inpatient (IN) ==
[2018-11-14] MEDS ORDERED: SOLU-MEDROL IV SCH (12:30)
[2018-11-14] MEDS ORDERED: LEVAQUIN 500 MG/D5W 500 MG/100 ML IVPB IV SCH (12:30)
[2018-11-14 12:46] LABS: ALLEN TEST YES; BE 3.7 mmoll (-3.0-3.0); BLOOD TYPE ARTERIAL; HCO3-(ACT) 27.7 mmoll (20.0-26.0); METHB 1.3 % (0.0-1.5); O2(CT) 21.8 mL/dL (15.0-23.0); O2HB 93.4 % (95.0-99.0); PCO2(98.6) 39 mmHg (35-45); PO2(98.6) 75 mmHg (60-100); SAMPLE BLOOD; SAO2 96.4 % (95.0-100.0); THB 16.6 g/dL (11.5-17.4); pH(98.6) 7.46 (7.35-7.45)
[2018-11-14 12:47] LABS: MODALITY ROOM AIR
--- NOTE | 2018-11-14 13:00 | EKG Report ---
Test Performed on : 11/14/2018 12:35:14 PM Test Reason : chest pain Blood Pressure : / mmHG Vent. Rate : 087 BPM Atrial Rate : 085 BPM P-R Int : 182 ms QRS Dur : 148 ms QT Int : 368 ms P-R-T Axes : 062 -74 086 degrees QTc Int : 442 ms Normal sinus rhythm. with frequent PVCs and fusion complexes Left axis deviation Left bundle branch block Abnormal ECG When compared with ECG of 04-NOV-2018 12:42, No significant change was found Confirmed by Silvio Cross MD ([id number]) on 11/16/2018 4:34:15 PM
[2018-11-14] MEDS: LOVENOX SUBQ SCH (14:01)
[2018-11-14] MEDS ORDERED: NS 500 ML ONE (14:10)
[2018-11-14 14:56] LABS: BASO# 0.02 X1000 (0.0-0.2); BASO% 0.1 % (0.0-0.8); EOS# 0.29 X1000 (0.0-0.7); HEMATOCRIT 50.2 % (42.0-52.0); HEMOGLOBIN 15.7 g/dL (14.0-18.0); IMM GRAN% 1.4 % (0.0-0.5); LYMPH# 1.08 X1000 (1.2-3.4); LYMPH% 7.6 % (20.5-51.1); MCH 25.1 PG (27-31); MCHC 31.3 g/dL (33-37); MCV 80.3 FL (81-99); MONO# 1.35 X1000 (0.11-0.59); MONO% 9.5 % (1.7-9.3); MPV 10.3 FL (7.4-10.4); NEUT# 11.31 X1000 (1.4-6.5); NEUT% 79.4 % (42.2-75.2); PLT 238 X1000 (130-400); RBC 6.25 XMIL (4.7-6.1); RDW 18.5 % (11.5-14.5); WBC 14.25 X1000 (4.8-10.8)
[2018-11-14 15:22] LABS: CALCIUM 8.3 mg/dL (8.8-10.2); CREATININE 1.8 mg/dL (0.7-1.2); MAGNESIUM 2.3 mg/dL (1.5-2.7); POTASSIUM 4.3 mmol/L (3.5-5.1)
[2018-11-14 15:56] LABS: SED RATE 0 mm/hr (0-15)
[2018-11-14] MEDS: HUMULIN R SUBQ SCH ×2 (16:34→21:12)
--- NOTE | 2018-11-14 16:46 | ECHO REPORT ---
ORDER DATE: 11/14/2018 INTERPRETING PHYSICIAN: Jose Angel Mccoy MD ECHOCARDIOGRAPHIC MEASUREMENTS: 1. Interventricular septum 1.1 cm. 2. Left ventricular posterior wall 1.1 cm. 3. Diastolic diameter 6.0 cm. 4. Left atrium 3.9 cm. 5. Aorta 3.5 cm. SUMMARY OF THE 2-DIMENSIONAL IMAGIN. Mitral valve was normal. 2. Pulmonic valve was normal. 3. The aortic valve leaflets are sclerosed, trileaflet. 4. There is mild pulmonary regurgitation. 5. Mild mitral regurgitation. 6. Mild tricuspid regurgitation. 7. Peak velocity across the tricuspid valve was 3.8 m/sec. 8. Pulmonary artery systolic pressure of 68 mmHg. There is pulmonary arterial hypertension. 9. There is no aortic stenosis. 10. There is mild aortic regurgitation. 11. Dilated left ventricle with severely reduced systolic function. 12. Estimated ejection fraction of 25% to 30%. 13. There is small dyskinetic segment in the left ventricular apex suggestive of aneurysm. 14. There is no obvious intracardiac mass or thrombus seen. cc: MD Hector Ruggiero MD
[2018-11-14] MEDS ORDERED: ENTRESTO 24 MG-26 MG TABLET PO ONE (19:16)
[2018-11-14] MEDS: AMBIEN PO SCH (21:12)
[2018-11-14] MEDS: ENTRESTO 24 MG-26 MG TABLET PO SCH (21:12)
--- NOTE | 2018-11-14 22:12 | HISTORY AND PHYSICAL ---
HISTORY OF PRESENT ILLNESS: This is an 83-year-old white gentleman, recently discharged from the hospital on 11/08/2018. He came back to the office again with shortness of breath, cough, wheezing, no swelling, initially was treating with asthmatic bronchitis. Chest x-ray was stable. He is extremely wheezing, not able to lie down flat. He was given Lasix over the weekend with no improvement, pulse oximetry 90%, readmitted to the hospital. PAST MEDICAL HISTORY: 1. Ischemic heart disease, 2 stents in 2001. 2. Chronic kidney disease, creatinine 1.6. 3. Hypertension. 4. Gout. 5. Chronic back pain due to bulging disks. 6. Erectile dysfunction. 7. Neurogenic bladder status post TURP and prostate cancer. 8. PAF. 9. Left bundle branch block. 10. History of cardioversion for atrial fibrillation. 11. 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 12. Subarachnoid bleed, off anticoagulants. PAST SURGICAL HISTORY: Prior stent placement, Achilles tendon repair, TURP in 2019. MEDICATIONS: Metoprolol 50 daily, Multaq 400 daily, Ambien 10 at bedtime, Levaquin 500 daily, Medrol Dosepak, Breo inhalation 1 tablet daily, Lasix 20 daily. ALLERGIES: Sulfa drugs. SOCIAL HISTORY: . 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 No smoking. No alcohol. No drug abuse. Lives in [place]. FAMILY HISTORY: Father at the age of 69. Mom at 59, cause is not known. REVIEW OF SYSTEMS: HEENT: No headache. No vision problem. No earache. No sore throat. Neck: No goiter. No lymphadenopathy. No bruit. Cardiopulmonary: Shortness of breath, cough, wheezing, orthopnea, PND. No swelling of legs. No chest pain. Gastrointestinal: No nausea, vomiting, abdominal pain. Genitourinary: History of prostate cancer, on testosterone shots, Viagra pills. Extremities: No swelling of legs. Neurological: No neurological symptoms or weakness. PHYSICAL EXAMINATION: VITAL SIGNS: Temperature is 98 degrees, pulse is 86, blood pressure 140/76, 95% on room air. GENERAL: Moderate respiratory distress. HEENT: Atraumatic, normocephalic. Pupils equal, react to light. TMs are normal. NECK: Supple. CHEST: Markedly bronchospastic. CARDIOVASCULAR: Distant heart sounds. GASTROINTESTINAL: Belly is soft, obese, nontender. Good bowel sounds. RECTAL: Deferred. EXTREMITIES: No peripheral edema. No obvious neurological deficits. INVESTIGATIONS: White cell count 14, hematocrit 50, platelets 238,000. D-dimer 0.56. ABG on room air: pH is 7.46, pCO2 39, pO2 75 on room air, SMA 7, BUN 43, creatinine 1.8, glucose 135, calcium 8.3. Troponin was negative. ProBNP was 1000. Chest x-ray stable. EKG: Normal sinus with PVCs in the left bundle branch block. Echocardiography findings: LV function reduced, dilated left ventricle, 25% to 30%, small dyskinetic segment suggestive of aneurysm, pulmonary artery pressure increases. ASSESSMENT AND PLAN: 1. An 83-year-old white gentleman with ischemic cardiomyopathy, left bundle, reduced ejection fraction under the care of Dr. Rosenbaum. 2. History of paroxysmal atrial fibrillation currently in sinus, not able to tolerate Eliquis due to subarachnoid bleeding, extensive hematuria. 3. Cardiac asthma with underlying chronic kidney disease. Continue on Multaq and started on Entresto. 4. Deep venous thrombosis prophylaxis with Lovenox. Continue IV Lasix. 5. For asthmatic bronchitis, Breo, IV steroids, IV antibiotics with Levaquin, which is changing the dose to 250 mg. Cardiology consult with Dr. Rosenbaum. Discussed with the patient's daughter at bedside, and we will follow up. cc: Hector Junior MD MTDD
[2018-11-14] MEDS: SOLU-MEDROL IV SCH (23:31)
[2018-11-15] MEDS: PRILOSEC PO SCH (06:31)
[2018-11-15] MEDS: SOLU-MEDROL IV SCH ×2 (06:31→13:29)
[2018-11-15] MEDS: HUMULIN R SUBQ SCH ×3 (06:47→16:18)
[2018-11-15] MEDS: BREO ELLIPTA 100/25 MCG INH INH SCH (08:08)
[2018-11-15] MEDS ORDERED: LASIX IV SCH (09:00)
[2018-11-15] MEDS: LOPRESSOR PO SCH (09:53)
[2018-11-15] MEDS: MULTAQ PO SCH (09:53)
[2018-11-15] MEDS: ENTRESTO 24 MG-26 MG TABLET PO SCH (09:53)
[2018-11-15] MEDS: LEVAQUIN 250 MG/D5W 250 MG/50 ML IVPB IV SCH (13:29)
[2018-11-15] MEDS: LOVENOX SUBQ SCH (13:30)
--- NOTE | 2018-11-15 13:52 | Diag Imaging Result Doc PS360 ---
EXAM: CHEST-2 VIEWS 11/15/2018 HISTORY: dyspnea TECHNIQUE: PA and lateral chest COMMENT: There is blunting of the left costophrenic angle. The heart size and pulmonary vascularity are within normal limits. There may be some platelike atelectasis over the left base. Compared to 11/07/2018 there has been no appreciable change. IMPRESSION: Atelectasis versus fibrosis in the left lower lobe laterally. Electronically signed by Charlie Lewis 11/15/2018 1:50 PM
[2018-11-15] MEDS: DUONEB (A & A) INH SCH ×2 (16:39→22:39)
--- NOTE | 2018-11-15 19:43 | CONSULTATION ---
DATE OF CONSULTATION: 11/15/2018 IMPRESSION: 1. Dyspnea and cough. I suspect this is largely related to acute bronchitis. He was recently started on diuretic therapy and has developed rise in creatinine from baseline of 1.1 to 1.8 with initiation of diuretic therapy. Prerenal azotemia appears to be present without clinical improvement in his dyspnea symptoms and in the presence of no objective findings to support volume overload. 2. Severe ischemic cardiomyopathy with left ventricular ejection fraction around 30%. Patient is status post previous myocardial infarction in the past. Last stress myocardial perfusion study earlier this year demonstrated fixed defects in the anteroseptal region apex and inferior wall. Left ventricular ejection fraction 31%. There is no evidence of inducible ischemia. Patient has declined implantable defibrillator when this has been discussed. 3. Acute renal dysfunction. Following recent initiation of diuretic therapy, the rise in creatinine from 1.1 to 1.6. 4. Hypertensive cardiovascular disease. 5. Prostate cancer with previous surgery. 6. Paroxysmal atrial fibrillation. 7. Left bundle branch block. 8. History of previous intracranial hemorrhage. Per patient description, this apparently happened while he was on Eliquis and Plavix and after he had a cough-induced syncope spell and fell and hit his forehead on the kitchen sink. Patient has been deemed not a candidate for further anticoagulation. RECOMMENDATIONS: 1. Discontinue Lasix. 2. Hold Entresto. I would be better to initiate this when his renal function is at baseline. 3. Aggressively treat bronchitis and pulmonary infectious process. I agree with corticosteroids and bronchodilator inhalers as well as antibiotic therapy. HISTORY: This 83-year-old, white male with past history of ischemic cardiomyopathy, COPD/bronchitis, hypertensive cardiovascular disease and paroxysmal atrial fibrillation was admitted with reemergence of dyspnea symptoms and cough following recent hospitalization for dyspnea and cough suspected of being related to bronchitis. The patient generally is in pretty good functional condition. He exercises on a regular basis and swims several laps at the pool without effort limiting shortness of breath. He has not really had problems with flare-ups of COPD/bronchitis. He did develop a cough and shortness of breath 10 days or so ago and was hospitalized at the end of October. He was felt to have acute bronchitis and possibly a component cardiac asthma. He was treated with some corticosteroids and bronchodilators as well as antibiotics. He was also treated with IV Lasix. He was discharged on oral Lasix and Breo Ellipta. He was discharged after a 3 to 4 day stay in hospital. Following discharge he had progressive reemergence of shortness of breath and cough. He has not been able to cough up much. There has been no chest pain nor orthopnea. PAST MEDICAL HISTORY: 1. Ischemic cardiomyopathy as outlined above. 2. Hypertensive cardiovascular disease. 3. Paroxysmal atrial fibrillation. 4. Low testosterone. 5. History of previous intracranial hemorrhage following syncopal episode provoked by cough with patient hitting forehead on kitchen sink. He relates that he was on Eliquis and Plavix at that time. He has been deemed not a candidate for anticoagulation. 6. Prostate cancer. PAST SURGICAL HISTORY: Includes Achilles tendon repair in the past as well as transurethral resection of prostate in 2019. ALLERGIES: He is allergic or intolerant to sulfa drugs. MEDICATIONS PRIOR TO ADMISSION: As listed. 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 He is . He has several children. He quit smoking around 1970. He does not use alcohol. FAMILY HISTORY: Negative for premature coronary disease. REVIEW OF SYSTEMS: Pulmonary: Noteworthy for shortness of breath and cough with minimal sputum production. There has been no orthopnea. Gastrointestinal: Negative. Constitutional: Negative for fever. Remainder of review of systems negative/noncontributory with 14 total systems reviewed. PHYSICAL EXAMINATION: General: This is an overweight older white male in no distress. Vital signs: Blood pressure 104/56, heart rate 69, oxygen saturation 96% on room air. HEENT Exam: Extraocular movements appear intact. Mucous membranes are moist. Neck: Supple. Neck veins are flat. There are no carotid bruits. Chest: Auscultation of the chest reveals a few scattered expiratory wheezes. No rales could be appreciated. Cardiac Exam: Reveals a regular rate and rhythm without appreciable murmur or gallop. Abdomen: Soft. Bowel sounds are normal. Extremities: Without edema. Neurologic: Reveals him to be alert and fully oriented. Speech is fluent. He moves all 4 extremities equally well. Skin: Warm and dry. Psychiatric: Reveals mood to be appropriate. PERTINENT DATA: Twelve lead EKG demonstrates sinus rhythm with occasional premature ventricular complex, left axis deviation, and left bundle branch block. LABORATORY DATA: Includes white blood cell count of 14.25, hematocrit 50.2, hemoglobin 15.7, platelet count 238,000. Sodium 136, potassium 4.3, chloride 97, carbon dioxide 25, BUN 43, creatinine 1.8, glucose 24, creatinine 1.8, glucose 140, magnesium 2.6. Troponin T 0.020, CPK 81. cc: MD Hector Gross MD
[2018-11-15] MEDS: AMBIEN PO SCH (20:51)
--- NOTE | 2018-11-15 21:15 | PROGRESS NOTE ---
DATE: 11/15/2018 SUBJECTIVE: The patient is doing better. Wheezing is improved and chest x-ray was better. OBJECTIVE: HEENT: Within normal limits. Neck: Supple. Chest: Bilateral air entry. Slightly wheezing. Heart sounds are regular. Belly is soft, nontender. No peripheral edema. ASSESSMENT: 1. Asthmatic bronchitis. 2. Ischemic cardiomyopathy. 3. Paroxysmal atrial fibrillation. 4. Left bundle. PLAN: 1. Continue IV steroids, IV antibiotics. 2. Deep vein thrombosis prophylaxis with Lovenox. 3. Paroxysmal atrial fibrillation, on Multaq. 4. Ischemic cardiomyopathy, on beta blockers and Entresto. 5. Acid reflux disease, on Prilosec. 6. We will ask cardiology consult on-call with Dr. Rosenbaum. In the past, the patient had a cardioversion for atrial fibrillation. Currently, in sinus. Consider AICD. However, will discuss the plan of care and follow up. LEVEL OF DOCUMENTATION: 25 minutes. cc: Hector Junior MD
[2018-11-16] MEDS: SOLU-MEDROL IV SCH ×2 (02:16→14:07)
[2018-11-16] MEDS: HUMULIN R SUBQ SCH ×5 (02:17→20:55)
[2018-11-16] MEDS: DUONEB (A & A) INH SCH ×4 (03:24→22:01)
[2018-11-16] MEDS: PRILOSEC PO SCH ×2 (05:53→06:14)
[2018-11-16 06:57] LABS: CALCIUM 8.1 mg/dL (8.8-10.2); CREATININE 1.7 mg/dL (0.7-1.2); MAGNESIUM 2.3 mg/dL (1.5-2.7); POTASSIUM 4.2 mmol/L (3.5-5.1)
[2018-11-16] MEDS: BREO ELLIPTA 100/25 MCG INH INH SCH (09:44)
[2018-11-16] MEDS: LOPRESSOR PO SCH (10:02)
[2018-11-16] MEDS: MULTAQ PO SCH (10:02)
[2018-11-16] MEDS: LOVENOX SUBQ SCH (14:07)
[2018-11-16] MEDS: LEVAQUIN 250 MG/D5W 250 MG/50 ML IVPB IV SCH (14:07)
[2018-11-16] MEDS: AMBIEN PO SCH (20:35)
--- NOTE | 2018-11-16 21:38 | PROGRESS NOTE ---
DATE: 11/16/2018 SUBJECTIVE: Patient relates feeling better. He is lying flat without shortness of breath. He still has some cough, but no sputum production as he feels he cannot get his sputum to come up. There has been no chest pain. OBJECTIVE: Blood pressure 134/70, heart rate 77, oxygen saturation ranges from 93% to 98% on room air. There is no significant jugular venous distention. Auscultation of chest reveals few rhonchi in the right base posteriorly. Chest is otherwise clear to auscultation.Cardiac Exam: Regular rate and rhythm without appreciable murmur or gallop. Extremities: Without edema. LABORATORY DATA: Includes sodium 134, potassium 4.2, chloride 97, carbon dioxide 25, BUN 50, creatinine 1.7, glucose 136, magnesium 2.3. IMPRESSION: 1. Dyspnea and cough. Probably more likely related to acute bronchitis given lack of improvement with recent diuretic therapy, with associated development of prerenal azotemia. Creatinine has risen from 1.1 to 1.7, with significant rise in BUN. 2. Ischemic cardiomyopathy with left ventricular ejection fraction around 30%, with history of previous myocardial infarction in the past. 3. Acute renal dysfunction with laboratory suggesting prerenal azotemia emerging with recent diuresis. 4. Hypertensive cardiovascular disease. 5. Paroxysmal atrial fibrillation. Patient continues sinus rhythm on Multaq. 6. Left bundle-branch block. 7. Previous intracranial hemorrhage. Patient has been deemed not a candidate for further anticoagulation. RECOMMENDATIONS: 1. Continue bronchodilator therapy, antibiotics, and corticosteroids. 2. Hold off on Entresto until renal function is back at baseline. This is certainly worth pursuing after his creatinine returns to baseline of 1.1. 3. Probably reasonable for patient to be discharged to home to continue management as an outpatient in the next 24 hours given trend toward improvement. cc: MD Hector Gross MD
[2018-11-17] MEDS: SOLU-MEDROL IV SCH (01:13)
[2018-11-17] MEDS: DUONEB (A & A) INH SCH ×2 (03:24→10:27)
[2018-11-17] MEDS: PRILOSEC PO SCH (06:16)
[2018-11-17 06:39] LABS: BASO# 0.01 X1000 (0.0-0.2); HEMOGLOBIN 16.3 g/dL (14.0-18.0); IMM GRAN% 0.4 % (0.0-0.5); LYMPH# 0.46 X1000 (1.2-3.4); LYMPH% 1.8 % (20.5-51.1); MCH 25.1 PG (27-31); MCHC 31.3 g/dL (33-37); MONO# 0.51 X1000 (0.11-0.59); MPV 10.8 FL (7.4-10.4); NEUT# 24.28 X1000 (1.4-6.5); NEUT% 95.8 % (42.2-75.2); PLT 223 X1000 (130-400); RDW 19.4 % (11.5-14.5); WBC 25.36 X1000 (4.8-10.8)
[2018-11-17] MEDS: HUMULIN R SUBQ SCH (06:51)
--- NOTE | 2018-11-17 06:57 | PROGRESS NOTE ---
DATE: 11/16/2018 SUBJECTIVE: The patient is getting better. Decreased wheezing, shortness of breath. PHYSICAL EXAMINATION: Temperature is 98 degrees, pulse 65. Vitals are stable, 95% on room air. HEENT Examination: Within normal limits. Chest is clear. Heart sounds are regular. Belly is soft, nontender. Good bowel sounds. No neurological deficits. INVESTIGATIONS: Creatinine 1.7. ASSESSMENT AND PLAN: 1. Asthmatic bronchitis. Continue on Levaquin, intravenous steroids, and Breo. 2. Ischemic cardiomyopathy. We will hold the Entresto until the creatinine comes back to normal. 3. Insomnia, on Ambien. 4. Paroxysmal atrial fibrillation with a left bundle. Consider automatic implantable cardioverter defibrillator. He is not a candidate for anticoagulation, on Multaq, and continue on aspirin and beta blockers. 5. Acid reflux disease, on Prilosec. 6. We will check the labs in the morning. LEVEL OF DOCUMENTATION: 25 minutes. cc: Hector Junior MD
[2018-11-17 07:19] LABS: LYMPHS 2 % (21-51); SEGS 98 % (42-75)
[2018-11-17 07:21] LABS: CALCIUM 8.3 mg/dL (8.8-10.2); CREATININE 1.7 mg/dL (0.7-1.2); POTASSIUM 4.5 mmol/L (3.5-5.1)
[2018-11-17 08:12] VITALS: BP 116/77
[2018-11-17] MEDS: LOPRESSOR PO SCH (08:53)
[2018-11-17] MEDS: MULTAQ PO SCH (08:54)
[2018-11-17] MEDS ORDERED: ASPIRIN PO SCH (09:00)
[2018-11-17] MEDS: BREO ELLIPTA 100/25 MCG INH INH SCH (10:27)
--- NOTE | 2018-11-19 12:28 | DISCHARGE SUMMARY ---
ADMISSION DATE: 11/14/2018 DISCHARGE DATE: 11/17/2018 DISCHARGING DIAGNOSIS: Acute asthmatic bronchitis. SECONDARY DIAGNOSES: 1. Ischemic cardiomyopathy, ejection fraction of 30%. 2. Coronary artery disease with stents. 3. Paroxysmal atrial fibrillation status post cardioversion. 4. Abnormal EKG with left bundle. 5. Chronic renal failure, creatinine 1.6. 6. Hypertension. 7. Gout. 8. Chronic back pain due to bulging disk. 9. 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 10. Prostate cancer status post transurethral resection of prostate. 11. History of secondary polycythemia due to testosterone. 12. History of subarachnoid bleed off anticoagulants. CONSULTS: Dr. Ezekiel Nam. BRIEF HISTORY: Please see the H and P that was done on 11/14/2018. In brief he is an 83-year-old white male with above problems readmitted to the hospital with cough, shortness of breath, wheezing. He did not have any symptoms and signs of heart failure. No elevation of JVD. No pedal edema. He was given Lasix as an outpatient. The patient is markedly wheezing. Started on IV Levaquin and steroids and bronchodilators. He also had a echocardiography done. It showed LV function declined to 25 to 30 percent. He is not taking any JULIUS and ARB. He declined ARB in the past. He is not taking the anticoagulation due to hematuria and subarachnoid bleed. Dr. Nam was consulted. He wants to treat aggressive bronchitis. Rest of the hospital course was uneventful. LABS: White cell count 25.36, hematocrit 52, platelets 223. Sedimentation rate is 0. D-dimer 0.56. ABG on room air pH is 7.46, pCO2 39, PO2 75. Sodium 136, potassium 4.5, chloride 100, BUN 46, creatinine 1.7, glucose 143. ProBNP 1000. TSH is slightly high. Chest x-ray was stable. At the time of discharge, the patient was stable. The instructions as follows: 1. Baseline weight is 200. 2. Flu vaccine 02/19/2018, pneumococcal vaccine 02/19/2018. 3. Metoprolol 50 daily, Multaq 400 daily, Ambien 10 at bedtime, Levaquin 500 daily, Medrol Dosepak, Breo 1 puff daily, albuterol Atrovent nebulizers q.6 as needed, aspirin 81 mg daily and Crestor 24/20 one tab daily and slowly titrate, Lasix 20 daily. 4. Follow up in my office in 10 days. cc: MD Napoleno Bundy MD
== END 2018-11-17 10:48 | disposition home or self-care (01) | DRG 202 ==
LOC: DIRADM 09:07 → 4N 09:19
PROVIDERS: ADMIT Internal Medicine; ATTEND Internal Medicine
CPT/HCPCS: 71020; 71046; 80048; 82550; 82805; 82948; 83735; 83880; 84443; 84484; 85025; 85027; 85379; 85651; 87088; 93005; 93010; 93306; 94640; 94761; A9270; C8929; J1650; J1940; J1956; J2930; J7040; Q9957; XXXXX

== ENCOUNTER 2018-11-26 20:04 | Inpatient (IN) ==
[2018-11-26] MEDS ORDERED: DUONEB (A & A) INH ONE (20:25)
[2018-11-26] MEDS ORDERED: VALIUM IV ONE (20:25)
--- NOTE | 2018-11-26 20:28 | PROVIDER DOCUMENTATION ---
HPI-General Adult - General Chief Complaint: Chest Pain Stated Complaint: SOB, CHEST PAIN, STOMACH PAIN Time Seen by Provider: 11/26/18 20:22 Source: patient Allergies/Adverse Reactions: Patient Allergies Allergy/AdvReac Type Severity Reaction Status Date / Time Sulfa (Sulfonamide Allergy Intermediate HIVES Verified 06/23/18 05:39 Antibiotics) Home Medications: Home Medication List Medication Instructions Recorded Confirmed Last Taken Type Metoprolol [Lopressor] 50 mg PO DAILY 01/09/15 11/14/18 11/13/18 08:00 History Dronedarone HCl [Multaq] 400 mg PO DAILY 02/03/17 11/14/18 11/13/18 08:00 History Levofloxacin 500 mg PO DAILY 11/04/18 11/14/18 11/04/18 08:00 History Methylprednisolone [Medrol Dosepak] 4 mg PO DIRECTED 11/04/18 11/14/18 11/04/18 08:00 History Zolpidem Tartrate 10 mg PO QHS 11/04/18 11/14/18 11/03/18 20:00 History Fluticasone/Vilanterol [Breo 1 ea INHALATION DAILY #1 aer.pow.ba 11/08/18 11/14/18 11/13/18 08:00 Rx Ellipta Inhaler] Furosemide 20 mg PO DAILY #30 tab 11/08/18 11/14/18 11/13/18 08:00 Rx Albuterol 2.5MG/Ipratrop 0.5MG 3 ml INH RTQ6H #120 neb 11/17/18 Unknown Rx [Duoneb (A & A)] Aspirin 81 mg PO DAILY chewtab 11/17/18 Unknown Rx Sacubitril/Valsartan [Entresto 24 1 ea PO BID #60 tab 11/17/18 Unknown Rx mg-26 mg Tablet] - History of Present Illness -Gen Adult Nature of Presenting Problems: 83 y/o M presents to the ED complaining of dyspnea and spasm over his chest and back. States he has had a persistent cough since he was diagnosed and treated for PNA several weeks ago and has had some spasm in his lower chest and upper back with this cough but today states the spasms have increased and become more persistent and with this he feels like he can't catch his breath. No sputum production no fever, no chest pain. no abdominal pain nausea or vomiting. Review of Systems - Adult - REVIEW OF SYSTEMS - ADULT Constitutional: reports: no symptoms reported Eyes: reports: no symptoms reported Ears, Nose, Mouth & Throat: reports: no symptoms reported Cardiovascular: denies: chest pain Respiratory: reports: cough, shortness of breath Gastrointestinal: reports: no symptoms reported Genitourinary: reports: no symptoms reported Musculoskeletal: reports: other (muscle spasm) Integumentary: reports: no symptoms reported Neurological: reports: no symptoms reported Psychiatric: reports: no symptoms reported Endocrine: reports: no symptoms reported Hematologic/Lymphatic: reports: no symptoms reported Allergic/Immunologic: reports: no symptoms reported All Other Systems: Reviewed and Negative Past History - Adult - PAST MEDICAL HISTORY-ADULT Review of Records: reports: Old Records Reviewed, Medications Reviewed, Social history reviewed & non-contributory. Major Childhood Illnesses: reports: denies history Cardiovascular: reports: A-Fib, CAD, CHF, HTN, AR Respiratory: reports: COPD Gastrointestinal: reports: denies history Obstetrical/Gynecological: reports: denies history Genitourinary: reports: prostatitis Musculoskeletal: reports: denies history Neurological: reports: denies history Endocrine/Immune: reports: denies history Other Conditions: reports: denies history - PRIOR SURGERIES/PROCEDURES Surgical/Procedure History: reports: cardiac stent (x2) - IMMUNIZATION STATUS Childhood Immunizations: See Nurse Assessment Flu Vaccine: See Nurse Assessment - FAMILY HISTORY Family History: reviewed, not pertinent Physical Exam-General - PHYSICAL EXAM-ADULT Initial Vital Signs Reviewed: Yes - CONSTITUTIONAL General Appearance: appears well, alert, no apparent distress - EYES Eyes: PERRL/EOMI, pink conjunctivae - HEAD, EARS, NOSE, MOUTH & THROAT HENMT: normocephalic/atraumatic, moist mucous membranes, normal ENT inspection - NECK Neck: non-tender, full range of motion, supple - RESPIRATORY Respiratory: chest non-tender, normal breath sounds, wheezing (mild bl expiratory wheezes), other (ttp with spasm over lower chest muscles) - CARDIOVASCULAR Cardiovascular: normal peripheral pulses, regular rate, rhythm, no edema, no JVD - GASTROINTESTINAL (ABDOMEN) Abdominal Exam: non tender, soft. negative: distended - MUSCULOSKELETAL Back Exam: normal inspection, no CVA tenderness, no vertebral tenderness, other (mild ttp over thoracic paraspinal muscles with spasm) Extremity: normal range of motion, non-tender, no pedal edema, no calf tenderness - SKIN Integumentary: normal color, normal turgor, warm/dry - NEUROLOGIC Neurologic: grossly normal, no motor/sensory deficits - PSYCHIATRIC Psych/Mental Status: normal mood/affect, normal thought content, normal thought process, oriented x 3 Progress - PLAN OF CARE/RESULTS Progress/Plan/Lab Results: Vital Signs - 8 hr 11/26/18 20:14 Temperature 99 F Pulse Rate 87 Respiratory Rate 18 Blood Pressure 176/96 O2 Sat by Pulse Oximetry 94 L Orders Category Date Time Status IV Insertion ORDERED Care 11/26/18 20:25 Active CHEST-1 VIEW [RAD] Stat Exams 11/26/18 20:25 Ordered CHEST-PORTABLE [RAD] Stat Exams 11/26/18 20:11 Taken BASIC METABOLIC PANEL [CHEM] Stat Lab 11/26/18 20:25 Uncollected CBC WITH DIFF [HEME] Stat Lab 11/26/18 20:25 Uncollected PRO B-NATRIURETIC PEPTIDE Stat Lab 11/26/18 20:25 Uncollected TROPONIN T Stat Lab 11/26/18 20:25 Uncollected Albuterol 2.5MG/Ipratrop 0.5MG [Duoneb (A & A)] Med 11/26/18 20:25 Discontinued 3 ml INH NOW ONE Diazepam [Valium] Med 11/26/18 20:25 Discontinued 5 mg IV NOW ONE Aerosol Treatments Routine Oth 11/26/18 20:25 Active Aerosol Treatments Stat Oth 11/26/18 20:25 Active dyspnea with chest and back spasms will treat and will further evaluate for causes including but not limited to spasm, anxiety, bronchospasms, pna, ptx, acs, arrythmia, chf Result Diagrams: 11/26/18 20:58 11/26/18 20:58 - REASSESSMENT Reassessment #1 Status: improving (spasm improved but continued mild dyspnea, wheezes resolved. Marked leukocytosis concerning for infectious process will further evaluate with CT chest) Reassessment #2 Status: improving (feeling better, CT chest concerning for PNA. Treated with vanco and zosyn and will admit. Discussed case with Dr. Shetty, Hospitalist, who will see and admit pt.) - EKG 1 Time of EKG reading by physician:: :18 EKG Read and Signed by:: Daisy Sutton EKG Interpretation (*Must complete 3 of following elements*): Abnormal (Sinus Rhythm, rate 89, frequent PVC's, Left axis deviation, no acute st changes, normal intervals. Unchanged from prior 11/17/18) - XRAY 1 XRAY Study: Chest Impression: Abnormal (FINDINGS: There is worsening cardiomegaly and pulmonary vascular congestion. There are some hazy central infiltrates bilaterally. No pneumothorax or significant pleural effusion. IMPRESSION: Cardiomegaly and pulmonary vascular congestion. Probable mild central pulmonary edema.) - CT/MRI 1 CT Study: Angiogram, Thorax Impression: Abnormal (Per radiologist read: "no evidence of pulmonary embolism, patchy groundglass along posterior right upper and lower lobes suggetive of infectious or inflammatory etiology") Departure - Departure Date of Disposition Decision: 11/27/18 Time of Disposition Decision: 00:20 DIAGNOSIS: Muscle spasm Pneumonia Qualifiers: Pneumonia type: due to unspecified organism Laterality: right Lung location: unspecified part of lung Qualified Code(s): J18.9 - Pneumonia, unspecified organism Disposition: ADMITTED INPATIENT 09 Certified Medical Emergency: Emergent Condition: Fair - Critical Care Note This patient required my direct & personal management of CC.: No Attestation - Physician/ DION Attestation Patient care was provided by Advanced Practice Provider:: No The physician spent face to face time with patient:: Yes Advanced Practice Provider documentation review:: Supervising physician onsite and consulted in the evaluation and care of this patient. The physician did have a face to face encounter with the patient.
--- NOTE | 2018-11-26 20:43 | Diag Imaging Result Doc PS360 ---
CHEST-PORTABLE - 11/26/2018 INDICATION: sob COMPARISON: 11/15/2018 FINDINGS: There is worsening cardiomegaly and pulmonary vascular congestion. There are some hazy central infiltrates bilaterally. No pneumothorax or significant pleural effusion. IMPRESSION: Cardiomegaly and pulmonary vascular congestion. Probable mild central pulmonary edema. Electronically signed by Jaden Toussaint 11/26/2018 8:40 PM
[2018-11-26] MEDS ORDERED: LASIX IV ONE (21:04)
[2018-11-26 21:12] LABS: BASO# 0.02 X1000 (0.0-0.2); BASO% 0.1 % (0.0-0.8); EOS# 0.01 X1000 (0.0-0.7); HEMATOCRIT 47.1 % (42.0-52.0); HEMOGLOBIN 14.8 g/dL (14.0-18.0); IMM GRAN% 0.9 % (0.0-0.5); LYMPH# 0.41 X1000 (1.2-3.4); LYMPH% 1.8 % (20.5-51.1); MCH 25.5 PG (27-31); MCHC 31.4 g/dL (33-37); MCV 81.1 FL (81-99); MONO# 1.23 X1000 (0.11-0.59); MONO% 5.3 % (1.7-9.3); MPV 10.4 FL (7.4-10.4); NEUT# 21.39 X1000 (1.4-6.5); NEUT% 91.9 % (42.2-75.2); PLT 196 X1000 (130-400); RBC 5.81 XMIL (4.7-6.1); RDW 20.4 % (11.5-14.5); WBC 23.26 X1000 (4.8-10.8)
[2018-11-26 21:26] LABS: BANDS 3 % (0-1); LYMPHS 4 % (21-51); MONO 7 % (1-9); SEGS 86 % (42-75)
[2018-11-26 21:27] LABS: STOMATOCYTES 1+
[2018-11-26 21:40] LABS: CALCIUM 8.7 mg/dL (8.8-10.2); CREATININE 1.3 mg/dL (0.7-1.2); POTASSIUM 4.5 mmol/L (3.5-5.1)
--- NOTE | 2018-11-26 23:57 | EKG Report ---
Test Performed on : 11/26/2018 8:12:55 PM Test Reason : cp Blood Pressure : / mmHG Vent. Rate : 089 BPM Atrial Rate : 089 BPM P-R Int : 178 ms QRS Dur : 136 ms QT Int : 348 ms P-R-T Axes : 060 -66 086 degrees QTc Int : 423 ms Sinus rhythm. with frequent and consecutive premature ventricular complexes. and premature atrial com plexes. Left axis deviation Nonspecific intraventricular block Abnormal ECG When compared with ECG of 14-NOV-2018 12:35, premature ventricular complexes. are now present premature atrial complexes. are now present Unconfirmed Result
[2018-11-27] MEDS ORDERED: VANCOMYCIN 1 GM/NS 1 GM/250 ML IVPB IV ONE (00:03)
[2018-11-27] MEDS ORDERED: ZOSYN 4.5 GM in NS 100 ML IV ONE (00:03)
--- NOTE | 2018-11-27 03:37 | HISTORY AND PHYSICAL ---
REASON FOR ADMISSION: A 4-week history of posterior chest pain, shortness of breath, and lower back spasms. HISTORY OF PRESENT ILLNESS: Mr. 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 He says for the last 1 week whenever he coughs or moves he gets sporadic intense muscle spasms emanating from the posterior infrascapular part radiating to the front. He said the pain from the spasms is so intense that he cannot even take a deep breath and he has difficulty breathing as a consequence of this. He says sometimes it is mainly preceded by dry coughing spells. While I was in the room with the patient I witnessed him in intense agony from these spasms, and palpated his back and the muscles, i.e. the latissimus dorsi musculature was spasmodic. This lasted about a minute to 2 minutes. He was also in mild respiratory distress when this occurred. Once the spasms resolved, his breathing improved. The patient denies any antecedent fever or chills. He denies any spinal pain per se, but has reported numbness in the right L1 dermatome area a few weeks ago, but this has resolved spontaneously. No fecal or urinary incontinence. No lower extremity or upper extremity weakness. No GI or complaints. No additional cardiorespiratory complaints. REVIEW OF SYSTEMS: Notable for intermittent dysphagia to solids and liquids, and he attributes this to a history of having a corkscrew esophagus. No PND or orthopnea. No leg swelling. A 12 system review was done, positive findings per HPI. ALLERGIES: Sulfa. HOME MEDICATIONS: Have not been reconciled, although his last discharge medication list showed he was discharged on aspirin, furosemide, Entresto, duo nebs, Breo, Multaq, metoprolol, Levaquin, and Ambien. FAMILY HISTORY: No heart disease or diabetes in first-degree relatives. SURGICAL HISTORY: He has had coronary artery stents placed. He had a TURP performed. He has Achilles tendon repair done. SOCIAL HISTORY: He does not smoke, drink, or use illicit drugs. PAST MEDICAL HISTORY: Noted as above, including kidney stones. LABORATORY DATA: White count is 23,000, barely down from the previous on 11/17 of 25,000. His H and H is 14 and 47, platelets 496,000 with 91% neutrophils. BUN is 38, creatinine 1.3. Troponin 0.023, ProBNP is 2300. Chest film shows findings consistent with increased pulmonary vascular congestion and cardiomegaly, i.e. CHF. CT angiogram showed a right lower lobe infiltrate. No space filling defects suggestive of PE. PHYSICAL EXAMINATION: VITAL SIGNS: Blood pressure 176/96, heart rate is 74, respiratory rate is 24, temp 99 degrees. He is 95% on 3 L. GENERAL: He is pleasant, elderly man, not in acute distress at this time (although he was when he had an acute back muscle spasm). NEUROLOGIC: He is alert and oriented to person, place, and time. Normal mood and affect. HEENT: Head is normocephalic, atraumatic. Eyes: NORBERTO, EOMI. Anicteric and not pale. ENT exam is grossly normal. No gross focal motor deficits. NECK: Supple. No JVD or carotid bruit. No thyromegaly. CHEST: Bibasilar crepitations heard. No wheezes. Decreased entry in both lung valadez. CARDIOVASCULAR: 1st and 2nd heart sounds heard. No gallops, murmurs, rubs. Rhythm is regular. ABDOMEN: Protuberant, soft, nontender. No mass or megaly. Bowel sounds are normal. Rectal exam is deferred at this time. EXTREMITIES: Patient has high arched feet. Decreased pulse volumes distally in all extremities. Regular. No edema, clubbing or cyanosis. SKIN: Intact. No breakdown, lesions, or erythema. MUSCULOSKELETAL: Grossly normal. ASSESSMENT: 1. Right lower lobe pneumonia, hospital-acquired. 2. Coronary artery disease. 3. Atrial fibrillation, stable. 4. Mild chronic systolic heart failure. 5. Thoracolumbar muscle spasms, probably related to possible underlying spinal disease. 6. Polycythemia vera rubra. 7. Leukocytosis secondary to polycythemia vera rubra and steroids. PLAN: Patient will be treated with broad coverage for MRSA and Pseudomonas being that he has been in the hospital twice in the last 2 to 3 weeks. Also, consideration should be given for possible aspiration pneumonia since patient does have intermittent spells of dysphagia to liquids and solids. Continue breathing treatment. Of concern, we will get an MRI of the thoracolumbar spine region to rule out the possibility of extensive spinal disease which may be causing perithoracic and lumbar muscle spasms. The patient has no point tenderness in his spine or focal lesion, although he did have an area of anesthesia of the right L1 dermatome a week ago. Will put patient on muscle relaxants. Await MRI report. Patient will be transferred to care of Dr. Junior in the morning. cc: MD Hector Mae MD
[2018-11-27] MEDS: LOVENOX SUBQ SCH (04:01)
[2018-11-27 05:28] LABS: BASO# 0.01 X1000 (0.0-0.2); HEMATOCRIT 47.5 % (42.0-52.0); HEMOGLOBIN 14.6 g/dL (14.0-18.0); IMM GRAN# 0.12 X1000 (0.0-0.04); IMM GRAN% 0.5 % (0.0-0.5); LYMPH# 0.77 X1000 (1.2-3.4); LYMPH% 3.5 % (20.5-51.1); MCHC 30.7 g/dL (33-37); MCV 81.2 FL (81-99); MONO# 1.27 X1000 (0.11-0.59); MONO% 5.8 % (1.7-9.3); MPV 9.9 FL (7.4-10.4); NEUT# 19.88 X1000 (1.4-6.5); NEUT% 90.2 % (42.2-75.2); PLT 189 X1000 (130-400); RBC 5.85 XMIL (4.7-6.1); RDW 20.9 % (11.5-14.5); WBC 22.05 X1000 (4.8-10.8)
[2018-11-27 05:35] LABS: CALCIUM 8.4 mg/dL (8.8-10.2); CREATININE 1.5 mg/dL (0.7-1.2); POTASSIUM 4.4 mmol/L (3.5-5.1)
[2018-11-27] MEDS: LIORESAL PO SCH ×3 (06:27→20:10)
[2018-11-27] MEDS: ZOSYN 3.375 GM in NS 50 ML IV SCH ×3 (06:29→20:10)
[2018-11-27] MEDS: LASIX IV SCH ×2 (08:37→20:10)
[2018-11-27] MEDS: TESSALON PO SCH ×3 (08:38→20:10)
[2018-11-27] MEDS: ZYVOX PO SCH ×2 (08:38→20:10)
--- NOTE | 2018-11-27 08:50 | Diag Imaging Result Doc PS360 ---
CT ANGIOGRM PULMONARY ARTERIES - 11/26/2018 INDICATION: difficulty breathing, left arm swollen TECHNIQUE: Axial CT images were obtained after administering intravenous contrast. Coronal MIP images were generated. COMPARISON: None FINDINGS: There is no pulmonary embolism. There is advanced coronary artery disease. Otherwise heart and great vessels are normal. The esophagus is normal. Upper abdominal images are normal. There is dense infiltrate throughout the right upper and lower lobes. Minimal infiltrate in the posterior left lower lobe. No pneumothorax or significant pleural effusion. There is diffuse bronchitis in the lung bases with some mild mucous plugging of airways. Bones are intact and well mineralized. IMPRESSION: 1. Multilobar bilateral pneumonia or aspiration, right greater than left. 2. Bronchitis with some small airway mucous plugging. 3. No pulmonary embolism. This exam was performed using automated exposure control, adjustment of mA or kV according to patient size, and/or use of iterative reconstruction technique Electronically signed by Jaden Toussaint 11/27/2018 8:48 AM
[2018-11-27] MEDS ORDERED: MULTAQ PO ONE (14:51)
[2018-11-27] MEDS: DUONEB (A & A) INH SCH ×3 (15:22→23:15)
--- NOTE | 2018-11-27 15:33 | PROGRESS NOTE ---
DATE: 11/27/2018 SUBJECTIVE: Patient picked up and seen after admission during the night per hospitalist to Dr. Junior. The patient is still having some spasms in his abdomen and back he complains of and some shortness of breath, but he gets around his room pretty well to get to the phone to get his son-in- law to come back up after I had missed him barely as he was making his way out of the hospital. OBJECTIVE: Afebrile, pulse 61, respirations 18, blood pressure 134/61, O2 saturation on room air 96%. Cardiovascular: RRR. Lungs: Wheezes moderate bilaterally with some work of breathing noted. Extremities: No calf tenderness, cords, or edema. Neurologic: Nonfocal. Cranial nerves intact. DIAGNOSTIC STUDIES: Sodium 139, potassium 4.4, chloride 97, CO2 of 29, BUN 37, creatinine 1.5, calcium 8.4. ProBNP on admission 2313. Troponin 0.023. White count 22, hemoglobin 14.6, platelets 189,000. CT pulmonary angiogram done last evening reveals multilobar bilateral pneumonia, right greater than left, with bronchitis picture with small mucous plugging. No pulmonary embolism. ASSESSMENT: 1. Bilateral pneumonia. 2. Mild chronic congestive heart failure, systolic variety, ejection fraction 30%.Paroxysmal atrial fibrillation. 3. Coronary artery disease. 4. Polycythemia rubra vera. PLAN: We will resume some IV steroids on the patient. Continue DuoNeb. Continue IV antibiotics of Zosyn and Zyvox ordered by the hospitalist. Continue prophylaxis of DVT with Lovenox that has been ordered. He will receive 40 mg IV q.12 h. Lasix, and we will monitor his potassium level closely. We will give him some supplemental potassium in the interim. He notably says he is not on Entresto, but is on Multaq 40 mg daily and Toprol-XL 50 mg daily. Consideration per Dr. Junior will be given to change off the beta savanah due to the COPD likelihood and the patient being a former smoker by report; he possibly smells of smoke today. We will continue to aggressively treat the patient. cc: MD Hector Bejarano MD [facility]
[2018-11-27] MEDS ORDERED: DUONEB (A & A) INH SCH (16:00)
[2018-11-27] MEDS: ASPIRIN PO SCH (16:09)
[2018-11-27] MEDS: SOLU-MEDROL IV SCH (16:09)
[2018-11-27] MEDS: TOPROL XL PO SCH (16:10)
[2018-11-28] MEDS: ZOSYN 3.375 GM in NS 50 ML IV SCH ×4 (01:11→20:53)
[2018-11-28] MEDS: SOLU-MEDROL IV SCH ×3 (01:11→14:38)
[2018-11-28] MEDS: DUONEB (A & A) INH SCH ×7 (03:09→23:44)
[2018-11-28] MEDS: LOVENOX SUBQ SCH (05:59)
[2018-11-28 06:25] LABS: HEMATOCRIT 46.8 % (42.0-52.0); HEMOGLOBIN 14.6 g/dL (14.0-18.0); IMM GRAN# 0.07 X1000 (0.0-0.04); IMM GRAN% 0.5 % (0.0-0.5); LYMPH% 2.3 % (20.5-51.1); MCHC 31.2 g/dL (33-37); MCV 80.3 FL (81-99); MONO# 0.21 X1000 (0.11-0.59); MONO% 1.6 % (1.7-9.3); MPV 9.9 FL (7.4-10.4); NEUT# 12.49 X1000 (1.4-6.5); NEUT% 95.6 % (42.2-75.2); PLT 204 X1000 (130-400); RBC 5.83 XMIL (4.7-6.1); RDW 20.8 % (11.5-14.5); WBC 13.07 X1000 (4.8-10.8)
[2018-11-28 06:34] LABS: CALCIUM 8.4 mg/dL (8.8-10.2); CREATININE 1.8 mg/dL (0.7-1.2); POTASSIUM 3.7 mmol/L (3.5-5.1)
--- NOTE | 2018-11-28 07:50 | Diag Imaging Result Doc PS360 ---
EXAM: CHEST-2 VIEWS 11/28/2018 HISTORY: Pneumonia CHF TECHNIQUE: PA and lateral chest COMMENT: The heart size and pulmonary vascularity are within normal limits. There are multiple old compression fractures in the upper lumbar and mid thoracic spine. There is some basilar opacity bilaterally, and this was also present on 11/26/2018 and 11/15/2018. IMPRESSION: Bibasilar atelectasis versus fibrosis. Electronically signed by Charlie Lewis 11/28/2018 7:47 AM
[2018-11-28] MEDS: BREO ELLIPTA 100/25 MCG INH INH SCH (07:54)
[2018-11-28] MEDS: TOPROL XL PO SCH (09:14)
[2018-11-28] MEDS: LIORESAL PO SCH ×2 (09:14→20:53)
[2018-11-28] MEDS: ZYVOX PO SCH ×2 (09:14→20:53)
[2018-11-28] MEDS: MULTAQ PO SCH (09:14)
[2018-11-28] MEDS: TESSALON PO SCH ×3 (09:14→20:53)
[2018-11-28] MEDS: ASPIRIN PO SCH (09:14)
[2018-11-28] MEDS: LASIX IV SCH (09:15)
--- NOTE | 2018-11-28 09:26 | Diag Imaging Result Doc PS360 ---
EXAM: MRI LUMBAR SPINE W/CONTRAST INDICATION: thoracolumbar pain spasms TECHNIQUE: COMPARISON: None. FINDINGS: There is a hemangioma in the L2 vertebral body. The osseous marrow signal is essentially unremarkable except for mild endplate degenerative changes at a few levels, otherwise. There are chronic compression deformities involving T12 and L1 with anterior wedging. The conus medullaris appears normal. Surrounding soft tissues are grossly unremarkable. Segmental analysis of the lumbar spine is detailed below. T12-L1: There is loss of disc space height at this level and there is mild retropulsion related to the chronic compression deformity at L1. There is only minimal effacement of the ventral thecal sac. There is no high-grade central canal or neuroforaminal stenosis. L1-2: Unremarkable. L2-3: A left lateralizing disc osteophyte complex is slightly extending into the far left lateral space but no nerve displacement is identified. The central canal is mildly narrowed due to ligamentum flavum hypertrophy. No high-grade stenosis is identified. No neuroforaminal stenosis is identified. L3-4: There is a broad-based disc osteophyte complex and ligamentum flavum hypertrophy. This causing moderate to severe central spinal stenosis. There is also moderate to severe right neuroforaminal stenosis and moderate left neuroforaminal stenosis. L4-5: There is a broad-based disc osteophyte complex and posterior element hypertrophy. This causing moderate central stenosis. There is fairly severe right neuroforaminal stenosis and mild left neuroforaminal stenosis. L5-S1: There is prominent degenerative facet hypertrophy but no significant degenerative disc disease at this level. It is causing mild central canal stenosis and mild bilateral foraminal stenosis. IMPRESSION: Multilevel degenerative arthropathy as described above that appears to be most significant at L3-4 and L4-5. Electronically signed by Terry Bonner 11/28/2018 9:24 AM
--- NOTE | 2018-11-28 09:33 | Diag Imaging Result Doc PS360 ---
EXAM: MRI THORACIC SPINE W/CONTRAST INDICATION: Spinal pain with spasms TECHNIQUE: COMPARISON: None. FINDINGS: There is a recent compression fracture involving the T6 vertebral body with associated marrow edema and at least 60% vertebral body height loss. There are small fracture lines at the junction of the pedicles and the vertebral body bilaterally. There is no significant subluxation. There is little if any retropulsion causing no significant central canal stenosis or cord compression. This compression fracture is either acute or early subacute. There is a mild are chronic compression deformity at T12. There are several levels that exhibits small endplate degenerative Schmorl's nodes and there is ventral marginal osteophyte formation at T8-9 and T7-8. The central canal and neuroforamina appear to be patent at the other thoracic levels. The thoracic spinal cord signal appears normal. Surrounding soft tissues are grossly unremarkable. IMPRESSION: Recent compression fracture involving the T6 vertebral body as described. Please see above discussion. Electronically signed by Terry Bonner 11/28/2018 9:31 AM
--- NOTE | 2018-11-28 20:50 | PROGRESS NOTE ---
DATE: 11/28/2018 SUBJECTIVE: 83-year-old white gentleman readmitted to the hospital on 11/27/2018, for shortness of breath, cough, and wheezing. Interval history was reviewed. He is also complaining of Mid back pain and spasms. Pain is radicular pain. No weakness in the legs noted. PAST MEDICAL HISTORY: Reviewed. PAST SURGICAL HISTORY: Reviewed. MEDICINES: Reviewed. ALLERGIES: Sulfa drugs. PHYSICAL EXAMINATION: Vital Signs: Temperature is 97.2 degrees, pulse 70, blood pressure 120/60. HEENT: Within normal limits. Neck: Supple. Lungs: Decreased wheezing. Heart: Sounds are regular. Abdomen: Belly is soft, nontender. Neurologic: No obvious deficits. INVESTIGATIONS: CBC: White cell count 13, hematocrit 46, platelets 204,000. Sodium 140, potassium 3.7, BUN 38, creatinine 1.8, glucose 167. ProBNP 2000. Blood cultures are pending. CT scan, pulmonary angiogram: Multifocal bilateral aspiration bronchitis with airway mucous plugging. No PE. ASSESSMENT: 1. 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 2. Paroxysmal atrial fibrillation. 3. Secondary polycythemia. 4. Ischemic cardiomyopathy. 5. Abnormal electrocardiogram with left bundle. 6. Coronary artery disease with multiple stents. 7. Chronic renal failure, with baseline creatinine 1.6. 8. History of gout. 9. Chronic Lower back pain due to bulging disk. PLAN OF CARE: 1. Recurrent asthmatic bronchitis, most likely aspiration. Will start on Nexium. Currently, he is getting intravenous Zosyn, intravenous Zyvox, and decreased intravenous steroids. 2. Ischemic cardiomyopathy, stable, seen by Dr. Nam. 3. Deep venous thrombosis prophylaxis with Lovenox. 4. Gastrointestinal prophylaxis with intravenous Nexium. 5. Mid back pain. MRI has been scheduled. Reported T6 compression fracture. Plan is calcium, vitamin D, calcitonin, back brace. If no better, consider kyphoplasty. 6. Prostate cancer, stable. Patient wishes to use the testosterone shots. 7. Continue Tessalon Perles. 8. We will continue the bronchial toilet since recurrent hospitalization until Wednesday. 9. Change the diet to regular diet. 10. Physical therapy for ambulation. LEVEL OF DOCUMENTATION: [35 Minutes] cc: MD SB Bundy
[2018-11-28] MEDS: SODIUM CHLORIDE 0.9% INJ SCH (20:53)
[2018-11-28] MEDS: NEXIUM IV SCH (20:54)
[2018-11-29] MEDS: ZOSYN 3.375 GM in NS 50 ML IV SCH ×4 (02:16→20:29)
[2018-11-29] MEDS: DUONEB (A & A) INH SCH ×6 (05:25→23:16)
[2018-11-29] MEDS: LOVENOX SUBQ SCH (06:20)
[2018-11-29] MEDS: BREO ELLIPTA 100/25 MCG INH INH SCH (07:59)
[2018-11-29] MEDS: MULTAQ PO SCH (08:54)
[2018-11-29] MEDS: ASPIRIN PO SCH (08:54)
[2018-11-29] MEDS: OSCAL 500 + D PO SCH (08:54)
[2018-11-29] MEDS: ZYVOX PO SCH ×2 (08:54→20:29)
[2018-11-29] MEDS: TOPROL XL PO SCH (08:54)
[2018-11-29] MEDS: ROCALTROL PO SCH (08:54)
[2018-11-29] MEDS: TESSALON PO SCH ×4 (08:55→20:29)
[2018-11-29] MEDS: LIORESAL PO SCH ×2 (08:55→20:29)
[2018-11-29] MEDS: FORTICAL NAS SCH (08:55)
[2018-11-29] MEDS: LASIX IV SCH (08:55)
[2018-11-29] MEDS ORDERED: SOLU-MEDROL IV SCH (09:00)
[2018-11-29] MEDS: NEXIUM IV SCH (20:29)
[2018-11-29] MEDS: SODIUM CHLORIDE 0.9% INJ SCH (20:30)
--- NOTE | 2018-11-29 21:07 | PROGRESS NOTE ---
DATE: 11/29/2018 SUBJECTIVE: The patient still has a lot of bad back pain and decreased shortness of breath. Anxious to go home. No neurological symptoms or weakness. OBJECTIVE: Temperature is 98.0 degrees, pulse 81, blood pressure 130/82.HEENT: Within normal limits. Chest: Decreased wheezing. Cardiovascular: Heart sounds are regular. Tenderness noted at the mid thoracic area. Belly is soft, nontender. No obvious neurological deficits. INVESTIGATIONS: None reported. ASSESSMENT AND PLAN: 1. Mid back pain due to T6 compression fracture. Back brace, calcium, vitamin D, calcitonin. If no improvement, consider kyphoplasty. 2. Hypogonadism, on testosterone. 3. Prostate cancer, stable. 4. Aspiration pneumonia with asthmatic bronchitis. Currently, on IV Solu-Medrol, Zosyn, and Zyvox. 5. Ischemic cardiomyopathy. Stable with Multaq and Lasix once daily, metoprolol, and will start on Entresto once a day. Repeat the labs in the morning and will continue the antibiotics until Wednesday. LEVEL OF DOCUMENTATION: 25 minutes. cc: Hector Junior MD
[2018-11-30] MEDS: ZOSYN 3.375 GM in NS 50 ML IV SCH ×4 (02:46→20:54)
[2018-11-30] MEDS: DUONEB (A & A) INH SCH ×6 (05:36→23:35)
[2018-11-30 05:55] LABS: BASO# 0.01 X1000 (0.0-0.2); BASO% 0.1 % (0.0-0.8); HEMATOCRIT 44.8 % (42.0-52.0); HEMOGLOBIN 13.9 g/dL (14.0-18.0); IMM GRAN# 0.09 X1000 (0.0-0.04); IMM GRAN% 0.6 % (0.0-0.5); LYMPH# 0.49 X1000 (1.2-3.4); LYMPH% 3.4 % (20.5-51.1); MCH 25.4 PG (27-31); MCV 81.8 FL (81-99); MONO# 0.81 X1000 (0.11-0.59); MONO% 5.6 % (1.7-9.3); NEUT# 13.12 X1000 (1.4-6.5); NEUT% 90.3 % (42.2-75.2); PLT 228 X1000 (130-400); RBC 5.48 XMIL (4.7-6.1); WBC 14.52 X1000 (4.8-10.8)
[2018-11-30] MEDS: LOVENOX SUBQ SCH (05:59)
[2018-11-30 06:04] LABS: CALCIUM 8.2 mg/dL (8.8-10.2); CREATININE 1.8 mg/dL (0.7-1.2); POTASSIUM 3.5 mmol/L (3.5-5.1)
[2018-11-30 06:56] LABS: LYMPHS 9 % (21-51); MONO 2 % (1-9); SEGS 89 % (42-75)
[2018-11-30] MEDS: BREO ELLIPTA 100/25 MCG INH INH SCH (07:22)
[2018-11-30] MEDS: ENTRESTO 24 MG-26 MG TABLET PO SCH (08:52)
[2018-11-30] MEDS: ROCALTROL PO SCH (08:52)
[2018-11-30] MEDS: MULTAQ PO SCH (08:52)
[2018-11-30] MEDS: ZYVOX PO SCH ×2 (08:52→21:00)
[2018-11-30] MEDS: ASPIRIN PO SCH (08:52)
[2018-11-30] MEDS: TESSALON PO SCH ×3 (08:52→21:00)
[2018-11-30] MEDS: SOLU-MEDROL IV SCH (08:53)
[2018-11-30] MEDS: FORTICAL NAS SCH (08:53)
[2018-11-30] MEDS: LIORESAL PO SCH ×2 (08:53→21:00)
[2018-11-30] MEDS: TOPROL XL PO SCH (08:53)
[2018-11-30] MEDS ORDERED: LASIX IV SCH (09:00)
[2018-11-30] MEDS: OSCAL 500 + D PO SCH (09:06)
[2018-11-30] MEDS: NEXIUM IV SCH (21:00)
--- NOTE | 2018-11-30 21:28 | PROGRESS NOTE ---
DATE: 11/30/2018 SUBJECTIVE: The patient is not doing very well. He has possible aspiration with asthmatic bronchitis. He has a lot of spasms in the midback and radicular pain. No focal symptoms. I spent more than 35 minutes this morning and in the evening, and the whole family was at bedside. I have shown them all the pictures. OBJECTIVE: On exam, temperature is 98 degrees, pulse 72, blood pressure is stable. HEENT exam within normal limits.Chest: Bilateral wheezing. Heart sounds are very distant. Belly is soft, nontender. Tender in the midback area. No obvious neurological deficits. LABORATORY DATA: CBC: White cell count 14, hematocrit 44, platelets 228,000. Sodium 140, potassium 3.5, BUN 39, creatinine 1.8. ASSESSMENT AND PLAN: 1. Asthmatic aspiration pneumonia, currently on intravenous Zosyn and Zyvox. 2. Decrease the Lasix 20 mg daily. Ischemic cardiomyopathy. 3. Paroxysmal atrial fibrillation, on Multaq and Entresto. On Toprol. 4. T6 compression fracture. Continue on back brace, Os-Sedrick, vitamin D, calcitonin. I explained the kyphoplasty, showing the pictures of MRI of thoracic spine and lumbar spine to the family. 5. Cough. We will give him Tessalon. Continue bronchodilators. 6. We will keep him until his symptoms are much improved. We will make the arrangements outpatient for kyphoplasty after he recovers from all of his medical problems. Level of documentation 35 minutes. cc: Hector Junior MD
[2018-12-01] MEDS: ZOSYN 3.375 GM in NS 50 ML IV SCH ×4 (02:26→20:47)
[2018-12-01] MEDS: DUONEB (A & A) INH SCH ×6 (03:43→23:37)
[2018-12-01] MEDS: LOVENOX SUBQ SCH (06:01)
[2018-12-01] MEDS: BREO ELLIPTA 100/25 MCG INH INH SCH (09:07)
[2018-12-01] MEDS: SOLU-MEDROL IV SCH (09:19)
[2018-12-01] MEDS: TESSALON PO SCH ×4 (10:42→20:47)
[2018-12-01] MEDS: ASPIRIN PO SCH (11:35)
[2018-12-01] MEDS: ZYVOX PO SCH ×2 (11:36→20:47)
[2018-12-01] MEDS: MULTAQ PO SCH (11:36)
[2018-12-01] MEDS: LIORESAL PO SCH ×2 (11:36→20:47)
[2018-12-01] MEDS: ENTRESTO 24 MG-26 MG TABLET PO SCH (11:36)
[2018-12-01] MEDS: ROCALTROL PO SCH (11:36)
[2018-12-01] MEDS: FORTICAL NAS SCH (11:46)
[2018-12-01] MEDS: TOPROL XL PO SCH (11:46)
[2018-12-01] MEDS: OSCAL 500 + D PO SCH (11:46)
--- NOTE | 2018-12-01 15:52 | Diag Imaging Result Doc PS360 ---
EXAM: BA SWALLOW W/VIDEO SPEECH THER INDICATION: Aspiration TECHNIQUE: COMPARISON: None. FINDINGS: There was no aspiration witnessed during the study. Upon swallowing, there was a small extrinsic filling defect at the posterior aspect of the upper esophagus consistent with cricopharyngeus spasm. Limited views of the distal esophagus reveal a prominent corkscrew morphology suggesting severe spasm. Proximal to this, the esophagus is somewhat dilated. IMPRESSION: 1.Cricopharyngeus spasm/achalasia. 2.Corkscrew distal esophageal morphology with dilation of the esophagus proximal to this suggesting a severe spasm. 3.Please see speech pathology report performed details. Electronically signed by Terry Bonner 12/01/2018 3:49 PM
[2018-12-01] MEDS ORDERED: NEXIUM PO SCH (21:00)
--- NOTE | 2018-12-01 21:44 | PROGRESS NOTE ---
DATE: 12/01/2018 SUBJECTIVE: The patient was admitted 3 times for aspiration bronchitis, asthmatic, and he has been choking. He also has significant pain in the back while coughing. OBJECTIVE: On examination, temperature is 98.4 degrees, pulse 64, blood pressure is stable.HEENT exam: Plethoric face. Neck is supple. Chest: No wheezing. Heart sounds are irregular. Belly is soft, nontender. No neurological deficits. INVESTIGATIONS: None reported today. ASSESSMENT AND PLAN: 1. Aspiration pneumonitis. Continue on intravenous Zosyn and Zyvox. 2. T6 compression fracture. If no better consider kyphoplasty. 3. Discontinue Lasix. 4. Chronic atrial fibrillation, on Multaq and metoprolol. 5. Ischemic cardiomyopathy. Low dose of Entresto. 6. Followup on Speech Therapy evaluation: Apparently he has a high risk for aspiration. Consider Gastroenterology consult, and we will keep him until the weekend. We will follow up. Level of documentation 25 minutes. cc: Hector Junior MD
[2018-12-02] MEDS: ZOSYN 3.375 GM in NS 50 ML IV SCH ×4 (01:44→20:36)
[2018-12-02] MEDS: DUONEB (A & A) INH SCH ×5 (03:30→23:01)
[2018-12-02] MEDS: LOVENOX SUBQ SCH (06:02)
[2018-12-02] MEDS: BREO ELLIPTA 100/25 MCG INH INH SCH (07:48)
[2018-12-02] MEDS: FORTICAL NAS SCH (08:24)
[2018-12-02] MEDS: ZYVOX PO SCH ×2 (08:24→20:35)
[2018-12-02] MEDS: MULTAQ PO SCH (08:24)
[2018-12-02] MEDS: TESSALON PO SCH ×3 (08:24→20:35)
[2018-12-02] MEDS: ENTRESTO 24 MG-26 MG TABLET PO SCH (08:24)
[2018-12-02] MEDS: LIORESAL PO SCH ×2 (08:24→20:36)
[2018-12-02] MEDS: TOPROL XL PO SCH (08:24)
[2018-12-02] MEDS: OSCAL 500 + D PO SCH (08:24)
[2018-12-02] MEDS: ASPIRIN PO SCH (08:24)
[2018-12-02] MEDS: ROCALTROL PO SCH (08:24)
[2018-12-02] MEDS: SOLU-MEDROL IV SCH (08:25)
[2018-12-02] MEDS ORDERED: DIFLUCAN 200 MG/NS 200 MG/100 ML IVPB IV ONE (15:00)
--- NOTE | 2018-12-02 19:41 | GASTROENTEROLOGY CONSULTATION ---
DATE: 12/02/2018 REASON FOR CONSULTATION: Dysphagia, chest pain. HISTORY OF PRESENT ILLNESS: Mr. Doug Zurita is an 83-year-old gentleman with past medical history of systolic CHF with EF of 35%; atrial fibrillation, on Multaq and aspirin; hypertension; coronary artery disease, status post [place] x2; polycythemia vera; prostate cancer, status post TURP; recent T6 vertebral body compression fracture. He was admitted on 11/26 after presenting with dyspnea and spasm of the chest and back. The patient was recently hospitalized from 11/14 to 11/17 and discharged on oral steroids as well as Breo for "asthmatic bronchitis." He says that over the last week he has developed ulceration and discomfort on his tongue and mouth, including the inner lips, as well as dysphagia to solids and liquids. He is also says that he has lost taste in his mouth and believes he has blisters as well. He denies any GERD. He has had a upper endoscopy 10 to 15 years ago and had to get a dilation at the time. He does not take a PPI at home. He occasionally has dysphagia with choking when he is out to eat for the last couple of years, but has not been evaluated for this in the past. He denies any weight loss. No nausea or vomiting prior to coming to the hospital, abdominal pain, rectal bleeding or melena. He is not on any other blood thinners except for aspirin. REVIEW OF SYSTEMS: As per HPI, otherwise 12-point review of systems is negative. PAST MEDICAL HISTORY: Systolic CHF with EF of 35%; coronary artery disease, status post [place] x2; paroxysmal atrial fibrillation; prostate cancer; hypertension; CKD; chronic back pain; neurogenic bladder; left bundle branch block; polycythemia vera; history of subarachnoid bleed. PAST SURGICAL HISTORY: TURP, Achilles tendon repair. HOME MEDICATIONS: Metoprolol, Multaq, Ambien, Levaquin, Medrol Dosepak, Breo and Lasix. ALLERGIES: Sulfa. SOCIAL HISTORY: He is a former smoker. No alcohol or drug use. 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 FAMILY HISTORY: No family history of GI malignancies. PHYSICAL EXAMINATION: Vital signs: Temperature 97.7 degrees, heart rate 57, respiratory rate 20, blood pressure 145/67, O2 saturation 99% on room air. Generally the patient is awake, alert, oriented, in no acute distress.HEENT: Sclerae anicteric. Moist mucous membranes. Oropharynx shows thrush on the hard and soft palate. No oral ulcers. The tongue is dry, with some fissuring. No leukoplakia. Cardiac: Regular. No murmurs. Lungs are clear to auscultation bilaterally. He does cough during exam. Abdomen is soft, nontender, nondistended. Normoactive bowel sounds. No rebound or guarding. Extremities: No clubbing, cyanosis or edema. Neurologic: Nonfocal. The patient is ambulatory. LABORATORY DATA: White count of 14.5, hemoglobin is 13.9, platelets of 228,000. Sodium 141, potassium 3.5, chloride is 99, bicarbonate 29, BUN of 39, creatinine of 1.8, glucose of 96. Blood cultures x2 are no growth to date. DIAGNOSTIC DATA: Chest x-ray shows bibasilar atelectasis versus fibrosis. There are multiple old compression fractures in the upper lumbar and midthoracic spine. There is some basilar opacity bilaterally, which was present on prior chest x-rays on 11/26 and 11/15. A modified barium swallow done on 12/01 shows cricopharyngeus spasm/achalasia, corkscrew distal esophageal morphology with dilation of the esophagus proximal to this, suggesting a severe spasm. There was some proximal redirection of swallowed food and liquid to the upper third of the esophagus; however, oropharyngeal phase of the swallow appeared within functional limits. There did not appear to be complete emptying of the swallowed contrasted food and liquid. ASSESSMENT AND PLAN: Mr. Doug Zurita is an 83-year-old gentleman with past medical history of atrial fibrillation, on Multaq and aspirin; systolic congestive heart failure with ejection fraction of 35%; coronary artery disease, status post myocardial infarctions x2. He presents with T2 compression fracture and back and chest spasms, as well as [id number] dysphagia, found to have oropharyngeal thrush with suspected toshia esophagitis. The patient has was recently started on steroids by mouth and steroid inhalers, which is likely to the cause of his candidiasis. I suspect that treating with fluconazole may improve his dysphagia. He does have some diffuse esophageal spasm noted on modified barium swallow. He is not a candidate for calcium channel blockers and there is some concern with giving tricyclic antidepressants in the setting of elderly patient and coronary disease. I have increased his proton pump inhibitor to twice daily. We can continue him on a mechanical soft diet as tolerated. If he is not able to tolerate, we can decrease to full liquids. If he does not improve over the weekend, we can plan for diagnostic endoscopy on Wednesday. Continued dysphagia precautions. Minimize steroids. Dose-reduce the Multaq, given interaction with fluconazole. The patient will likely need inpatient versus outpatient esophagogastroduodenoscopy, depending on clinical course. # Dysphagia # Chest pain # Toshia esophagitis # AFIB Thank you for this consult. We will follow with you. Please call with any questions or concerns. cc: Hector Junior MD MTDD
--- NOTE | 2018-12-02 20:35 | PROGRESS NOTE ---
DATE: 12/02/2018 SUBJECTIVE: The patient has intermittent spasms, not able to eat. Findings discussed. Waiting to be seen by Dr. Guaman. OBJECTIVE: Vital signs: Temperature is 97 degrees, pulse 65, blood pressure 139/79, room air 97%. HEENT Exam: Within normal limits. Neck: Supple. No lymphadenopathy. Chest: Bilateral air entry. Cardiovascular: Heart sounds are regular. Abdomen: Belly is soft, nontender. Good bowel sounds. ASSESSMENT AND PLAN: 1. Dysphagia. Waiting to be seen by Dr. Guaman. 2. History of candidal esophagitis on IV Diflucan. 3. Aspiration pneumonia. We will slowly decrease the prednisone. 4. The patient is on Zyvox and IV Zosyn. 5. Chronic atrial fibrillation on Multaq. 6. T6 compression fracture on supportive treatment. I appreciate Dr. Guaman's consult. 7. Other options discussed. Calcium channel blockers and nitroglycerin. Nevertheless, calcium channel blockers are contraindicated in light of ischemic cardiomyopathy, ejection fraction 30%. Continue mechanical soft diet and will follow up. We will keep him over the weekend. LEVEL OF DOCUMENTATION: 25 minutes. cc: Hector Junior MD
[2018-12-02] MEDS: NEXIUM PO SCH (20:36)
[2018-12-03] MEDS: ZOSYN 3.375 GM in NS 50 ML IV SCH ×4 (01:48→20:11)
[2018-12-03] MEDS: DUONEB (A & A) INH SCH ×5 (03:34→19:08)
[2018-12-03] MEDS: LOVENOX SUBQ SCH (06:14)
[2018-12-03] MEDS: BREO ELLIPTA 100/25 MCG INH INH SCH (07:39)
[2018-12-03] MEDS: TESSALON PO SCH ×3 (08:14→20:10)
[2018-12-03] MEDS: ENTRESTO 24 MG-26 MG TABLET PO SCH (08:14)
[2018-12-03] MEDS: MULTAQ PO SCH (08:14)
[2018-12-03] MEDS: LIORESAL PO SCH ×2 (08:15→20:10)
[2018-12-03] MEDS: SOLU-MEDROL IV SCH (08:15)
[2018-12-03] MEDS: ZYVOX PO SCH (08:15)
[2018-12-03] MEDS: TOPROL XL PO SCH (08:15)
[2018-12-03] MEDS: ASPIRIN PO SCH (08:15)
[2018-12-03] MEDS: ROCALTROL PO SCH (08:15)
[2018-12-03] MEDS: NEXIUM PO SCH ×2 (08:15→20:10)
[2018-12-03] MEDS: OSCAL 500 + D PO SCH (08:15)
[2018-12-03] MEDS: FORTICAL NAS SCH (08:29)
[2018-12-03] MEDS ORDERED: DIFLUCAN 100 MG/NS 100 MG/50 ML IVPB IV ONE (14:31)
[2018-12-03] MEDS: DIFLUCAN 100 MG/NS 100 MG/50 ML IVPB IV SCH (15:36)
--- NOTE | 2018-12-03 18:20 | PROGRESS NOTE ---
DATE: 12/03/2018 SUBJECTIVE: Back pain is improving, oral thrush is better, and intermittent spasms. OBJECTIVE: Temperature is 97, vitals are stable.HEENT: Within normal limits. Neck: Supple. No lymphadenopathy. Chest: Bilateral air entry decreased. Heart sounds are irregular. INVESTIGATIONS: Blood cultures are negative. ASSESSMENT: 1. 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 2. Aspiration pneumonia. 3. T6 compression fracture. 4. Prostate cancer. 5. Sexual dysfunction. 6. Oral thrush. PLAN OF CARE: 1. Continue on Diflucan. 2. Discontinue IV Lasix, slowly tapering of IV steroids, and discontinue Zyvox. Continue on Zosyn. 3. In light of compression fracture and the prostate cancer, schedule PSA and bone scan. Continue back brace. For the achalasia, other options are nitrates versus calcium channel blockers. I explained the pros and cons to the patient. LEVEL OF DOCUMENTATION: 35 minutes. cc: Hector Junior MD
--- NOTE | 2018-12-03 23:54 | PROVIDER PROGRESS NOTE ---
Progress Note S: No acute overnight events. Patient reports better tolerance of PO intake. No abdominal pain. +BMs O: Last Vital Signs Temp 97.9 F 12/03/18 23:36 Pulse 77 12/03/18 23:36 Resp 17 12/03/18 23:36 BP 160/75 12/03/18 23:36 Pulse Ox 98 12/03/18 23:36 Height 5 ft 11 in Weight 203 lb 3 oz GEN: awake, alert, NAD, conversant HEENT: anicteric, MMM, improved thrush NECK: supple, no jvd PULM: CTAB CV: RRR, no murmurs ABD: soft NT/ND, NABS EXT: no cce NEURO: nonfocal LABS: 11/30/18 11/30/18 05:10 05:10 WBC 14.52 H Hgb 13.9 L Plt Count 228 Sodium 141 Potassium 3.5 Chloride 99 Carbon Dioxide 29 BUN 39 H Creatinine 1.8 H Glucose 96 ASSESSMENT AND PLAN: Mr. Doug Zurita is an 83-year-old gentleman with atrial fibrillation on Multaq and aspirin; systolic congestive heart failure with ejection fraction of 35%; coronary artery disease, status post myocardial infarctions x2, prostate cancer, and recent diagnosis of bronchitis treated with oral and inhaled steroids who presented with back and chest spasms found to have T2 compression fracture. During hospitalization he complained of [id number] dysphagia, found to have oropharyngeal thrush with suspected phu esophagitis as well as diffuse esophageal spasm with corkscrew esophagus noted on modified barium swallow sug gestive of motility disorder. His swallowing has improved with starting diflucan. Weaning steroids. He is not a candidate for CCB or tricyclic antidepressants given CHF. Chest and back spasms have improved as well. # Dysphagia: suspect 2/2 to esophageal candidiasis + motility disorder; recommend outpatient EGD and manometry # Esophageal candidasis: continue diflucan for 3 weeks; cont PPI; dysphagia precautions; weaning steroids Will sign off. Please have patient follow-up with GI in 2-4 weeks.
[2018-12-04] MEDS: ZOSYN 3.375 GM in NS 50 ML IV SCH ×4 (01:08→20:12)
[2018-12-04] MEDS: DUONEB (A & A) INH SCH ×6 (02:21→20:42)
[2018-12-04] MEDS: LOVENOX SUBQ SCH (06:08)
[2018-12-04] MEDS: BREO ELLIPTA 100/25 MCG INH INH SCH (07:17)
[2018-12-04] MEDS: ROCALTROL PO SCH (09:20)
[2018-12-04] MEDS: TESSALON PO SCH ×3 (09:20→20:12)
[2018-12-04] MEDS: TOPROL XL PO SCH (09:20)
[2018-12-04] MEDS: ENTRESTO 24 MG-26 MG TABLET PO SCH (09:21)
[2018-12-04] MEDS: ASPIRIN PO SCH (09:21)
[2018-12-04] MEDS: NEXIUM PO SCH ×2 (09:21→20:12)
[2018-12-04] MEDS: OSCAL 500 + D PO SCH (09:21)
[2018-12-04] MEDS: SOLU-MEDROL IV SCH (09:21)
[2018-12-04] MEDS: LIORESAL PO SCH ×2 (09:21→20:12)
[2018-12-04] MEDS: MULTAQ PO SCH (09:21)
[2018-12-04] MEDS: FORTICAL NAS SCH (09:33)
--- NOTE | 2018-12-04 11:00 | PROGRESS NOTE ---
DATE: 12/04/2018 SUBJECTIVE: The patient says overall he is feeling better, but he is complaining of his mouth still hurting from his thrush and says he is having a little trouble with urination. He has had urinary problems in the past and possibly has prostate cancer now. He had a TURP not too long ago, and it got better, but since he has been in the hospital, he has had trouble emptying his bladder. We will try him on some tamsulosin and see if that will help. He says his lungs are doing better. His back spasms doing better. OBJECTIVE: Vital signs show a blood pressure of 133/68, respirations 18, temperature 96 degrees Fahrenheit. HEENT: Normocephalic. EOMS intact. PERRLA. Throat clear. Lungs are clear to auscultation and percussion without rhonchi, rales, or wheezes. Heart has a regular rate and rhythm without murmurs, gallops, or friction rubs. Abdomen is soft with active bowel sounds. No organomegaly or tenderness. Neurological exam intact grossly. ASSESSMENT AND PLAN: The patient complains of his gums in his mouth hurting but his tongue and the rest of his mouth looks pretty good at this time as far as his thrush goes. Overall I think he is improving. We will continue the same care. We will start him on tamsulosin. cc: MD Hector Samson Jr, MD
[2018-12-04] MEDS: DIFLUCAN 100 MG/NS 100 MG/50 ML IVPB IV SCH (15:43)
[2018-12-04] MEDS ORDERED: FLOMAX PO SCH (21:00)
[2018-12-05] MEDS: ZOSYN 3.375 GM in NS 50 ML IV SCH ×4 (01:21→22:03)
[2018-12-05] MEDS: DUONEB (A & A) INH SCH ×5 (04:33→19:18)
[2018-12-05] MEDS: BREO ELLIPTA 100/25 MCG INH INH SCH (07:47)
[2018-12-05] MEDS: SOLU-MEDROL IV SCH (08:49)
[2018-12-05] MEDS: TOPROL XL PO SCH (08:50)
[2018-12-05] MEDS: FLOMAX PO SCH (08:50)
[2018-12-05] MEDS: NEXIUM PO SCH ×2 (08:50→22:03)
[2018-12-05] MEDS: MULTAQ PO SCH (08:50)
[2018-12-05] MEDS: LIORESAL PO SCH ×2 (08:50→22:03)
[2018-12-05] MEDS: ENTRESTO 24 MG-26 MG TABLET PO SCH (08:50)
[2018-12-05] MEDS: FORTICAL NAS SCH (08:50)
[2018-12-05] MEDS: ASPIRIN PO SCH (08:50)
[2018-12-05] MEDS: ROCALTROL PO SCH (08:50)
[2018-12-05] MEDS: OSCAL 500 + D PO SCH (08:50)
[2018-12-05] MEDS: TESSALON PO SCH ×3 (08:50→22:03)
[2018-12-05] MEDS: LOVENOX SUBQ SCH (08:51)
--- NOTE | 2018-12-05 15:49 | Diag Imaging Result Doc PS360 ---
BONE SCAN, TOTAL BODY - 12/05/2018 INDICATION: BACK PAIN, PROSTATE CANCER TECHNIQUE: 28.9 mCi of MDP was administered COMPARISON: MRI from 11/28/2018 FINDINGS: There is intense uptake throughout the T6 vertebral body compatible with the recent compression fracture. Remainder of the skeleton is normal. Soft tissue uptake is normal. IMPRESSION: Recent T6 compression fracture. No other abnormality. Electronically signed by Jaden Toussaint 12/05/2018 3:47 PM
[2018-12-05] MEDS: DIFLUCAN 100 MG/NS 100 MG/50 ML IVPB IV SCH (16:13)
--- NOTE | 2018-12-05 22:55 | PROGRESS NOTE ---
DATE: 12/05/2018 SUBJECTIVE: The patient is out of the bed. Daughter is also in the room. He intermittently was choking. His PSA was 17. He was started on Flomax by Dr. Leonard. OBJECTIVE: Vital Signs: Temperature is 97.8, pulse 77, blood pressure is 116/67. HEENT: Within normal limits. Neck: Supple. No lymphadenopathy. Chest: Bilateral air entry. Heart: Sounds are regular. Abdomen: Belly is soft and nontender with good bowel sounds. Neurologic: No neurological deficits. ASSESSMENT AND PLAN: 1. Aspiration pneumonia is almost better 2. The oral thrush is improving on Diflucan. 3. Achalasia corkscrew esophagus. Would consider using nitroglycerin spray. 4. M midback pain T6 compression fracture. We will follow up on bone scan. 5. Elevated prostate specific antigen. Discontinue using and discouraged tor not use the testosterone shots. Continue on back brace, calcitonin, calcium and vitamin D and baclofen. 6. Intermittent cough on Tessalon Perles. 7. Chronic atrial fibrillation on Multaq, rate control, and not able to see the anticoagulation due to prior suboptimal bleed. 8. Continue on Nexium for GI prophylaxis. 9. Ischemic cardiomyopathy on Toprol and Entresto. 10. Chronic kidney disease, stable. 11. Benign prostatic hypertrophy status post TURP on Flomax. If stable we will discharge in the morning and we will follow up. LEVEL OF DOCUMENTATION: 25 minutes. cc: Hector Juinor MD
[2018-12-06] MEDS: DUONEB (A & A) INH SCH ×5 (00:28→15:36)
[2018-12-06] MEDS: ZOSYN 3.375 GM in NS 50 ML IV SCH ×4 (01:02→21:48)
[2018-12-06] MEDS: BREO ELLIPTA 100/25 MCG INH INH SCH (07:55)
[2018-12-06] MEDS: ROCALTROL PO SCH (08:42)
[2018-12-06] MEDS: LOVENOX SUBQ SCH (08:42)
[2018-12-06] MEDS: OSCAL 500 + D PO SCH (08:42)
[2018-12-06] MEDS: SOLU-MEDROL IV SCH (08:42)
[2018-12-06] MEDS: NEXIUM PO SCH ×2 (08:42→21:48)
[2018-12-06] MEDS: TOPROL XL PO SCH (08:43)
[2018-12-06] MEDS: FORTICAL NAS SCH (08:43)
[2018-12-06] MEDS: MULTAQ PO SCH (08:43)
[2018-12-06] MEDS: FLOMAX PO SCH (08:43)
[2018-12-06] MEDS: LIORESAL PO SCH ×2 (08:43→21:47)
[2018-12-06] MEDS: ASPIRIN PO SCH (08:43)
[2018-12-06] MEDS: ENTRESTO 24 MG-26 MG TABLET PO SCH (08:43)
[2018-12-06] MEDS: TESSALON PO SCH ×3 (08:43→21:47)
[2018-12-06] MEDS ORDERED: NITROGLYCERIN LINGUAL SPRAY SL PRN (14:45)
[2018-12-06] MEDS ORDERED: DUONEB (A & A) INH PRN (15:47)
[2018-12-06] MEDS ORDERED: BREO ELLIPTA 100/25 MCG INH INH PRN (15:48)
[2018-12-06] MEDS: DIFLUCAN 100 MG/NS 100 MG/50 ML IVPB IV SCH (16:09)
--- NOTE | 2018-12-06 20:54 | PROGRESS NOTE ---
DATE: 12/06/2018 SUBJECTIVE: The patient still has choking spells. He wants a regular diet instead of soft. Pain is slowly improving. No wheezing. OBJECTIVE: Temperature is 97 degrees, pulse 86. Vitals are stable.Chest: Clear. Heart sounds are irregular. Belly is soft, nontender. Nonfocal. INVESTIGATIONS: Body scan, recent T6 compression fracture. ASSESSMENT AND PLAN: 1. 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 Nitroglycerin spray. 2. T6 compression fracture, most likely traumatic with osteoporosis. Continue present treatment. If no better, consider the kyphoplasty. 3. Aspiration pneumonia, improving. 4. Chronic atrial fibrillation, stable. 5. Ischemic cardiomyopathy, stable. 6. Prostate cancer. Elevated PSA. Stable. Discouraged to use the testosterone shot. 7. If he is tolerating the diet without choking spells, we will discharge in the morning, and discussed the plan of care. LEVEL OF DOCUMENTATION: 25 minutes. cc: Hector Junior MD
[2018-12-07] MEDS: ZOSYN 3.375 GM in NS 50 ML IV SCH (04:35)
[2018-12-07 08:24] VITALS: BP 134/71
[2018-12-07] MEDS: TESSALON PO SCH (08:27)
[2018-12-07] MEDS: SOLU-MEDROL IV SCH (08:27)
[2018-12-07] MEDS: MULTAQ PO SCH (08:28)
[2018-12-07] MEDS: ASPIRIN PO SCH (08:28)
[2018-12-07] MEDS: FLOMAX PO SCH (08:28)
[2018-12-07] MEDS: NEXIUM PO SCH (08:28)
[2018-12-07] MEDS: ROCALTROL PO SCH (08:28)
[2018-12-07] MEDS: OSCAL 500 + D PO SCH (08:28)
[2018-12-07] MEDS: FORTICAL NAS SCH (08:28)
[2018-12-07] MEDS: LIORESAL PO SCH (08:28)
[2018-12-07] MEDS: TOPROL XL PO SCH (08:28)
[2018-12-07] MEDS: ENTRESTO 24 MG-26 MG TABLET PO SCH (08:28)
[2018-12-07] MEDS: LOVENOX SUBQ SCH (08:29)
--- NOTE | 2018-12-09 20:49 | DISCHARGE SUMMARY ---
ADMISSION DATE: 11/27/2018 DISCHARGE DATE: 12/07/2018 DISCHARGING DIAGNOSES: 1. Acute respiratory failure, due to aspiration pneumonia. 2. Aspiration pneumonia, due to achalasia at cricopharyngeus and corkscrew esophagus. 3. Oral thrush. 4. Intractable mid back pain due to T6 traumatic compression fracture. 5. Prostate cancer, elevated PSA - 17. 6. Hypogonadism, on testosterone shots along with sildenafil. 7. Secondary polycythemia, due to testosterone. 8. Abnormal electrocardiogram with left bundle. 9. Chronic intermittent atrial fibrillation. Not able to take anticoagulation due to bleeding issues with subarachnoid bleed. 10. Ischemic cardiomyopathy, ejection fraction 30%. 11. Coronary artery disease, with multiple stents. 12. Chronic kidney disease, creatinine 1.8. 13. Gout. 14. Hypertension. 15. Chronic lower back pain due to bulging disk. CONSULTS: Dr. Guaman. PROCEDURES: 1. Bone scan: Recent T6 compression fracture. 2. Chest x-ray: Improving pneumonia. 3. Thoracic spine MRA: Compression fracture involving T6. 4. Lumbar spine MRI: Findings of multilevel DJD arthropathy, most significant at L3-L4 and L4- L5. 5. Pulmonary arteriogram: Multilobar bilateral pneumonia and aspiration, right greater than the left, with mucous plugging. No pulmonary embolism. BRIEF HISTORY: Please see the H and P that was done by hospitalist. In brief, he is an 83-year- old white male with above problems. Came in with shortness of breath, cough, wheezing. He had 3 episodes for the last 3 admissions. HOSPITAL COURSE: 1. The patient developed aspiration pneumonia. He has intermittent dysphagia. He was given a Zyvox and intravenous Zosyn. He was also given bronchodilators and slowly weaned off oxygen. Followup x-ray showed interval improvement of aspiration pneumonia. 2. Oral thrush. Given Diflucan, improved. 3. Dysphagia. Speech therapy. Barium swallow study is consistent with achalasia with corkscrew esophagus. Options were discussed. We will use either a calcium channel savanah or nitroglycerin spray. He is not a candidate for calcium channel savanah due to low ejection fraction, and also nitroglycerin spray. Explained the contraindication with using sildenafil. 4. Intractable mid back pain due to T6 compression fracture. Further workup revealed mostly traumatic osteoporotic compression fracture. Patient was given a back brace and pain management, with improvement of calcium, vitamin D, and calcitonin. 5. Other options were discussed, potentially kyphoplasty. 6. Patient has chronic atrial fibrillation and not able to take anticoagulation due to subarachnoid bleed in the past. 7. Ischemic cardiomyopathy. He is beneficial with Entresto 1 pill a day. 8. Elevated prostate specific antigen. Refraining from using testosterone starts. Bone scan did not show any evidence of metastatic disease. He is going to see Dr. Kidd next week. 9. His vaccinations are up to date. 10. At the time of discharge, patient is stable. All the questions were answered to the patient as well as the daughter. LABORATORY DATA: CBC: White cell count 14, hematocrit 44, platelets 228,000. Sodium 140, potassium 3.5, BUN 39, creatinine 1.8. PSA 17.57. Chest x-ray was improving. DISCHARGING INSTRUCTIONS: 1. Flu vaccine 02/19/2018. 2. Pneumococcal 02/19/2018. 3. Metoprolol 50 mg daily. 4. Multaq 400 daily. 5. Ambien 10 at bedtime. 6. Furosemide 20 mg daily. 7. Aspirin 81 mg daily. 8. Entresto 24/ 1 tablet daily. 9. Albuterol/Atrovent nebulizers as needed. 10. Breo 1 puff daily. 11. Tizanidine 4 mg daily. 12. Calcitonin 1 spray in each nostril daily. 13. Nexium 40 daily. 14. Os-Sedrick with vitamin D 1 tablet daily. 15. Calcitriol 0.25 mcg daily. 16. Aspirin 81 mg daily. 17. Nitroglycerin spray as needed. 18. Follow up with Dr. Kidd for elevated PSA and prostate cancer. 19. Follow up in my office in 10 days. cc: MD Dr. Bernabe Bundy MD
== END 2018-12-07 08:45 | disposition home or self-care (01) | DRG 177 ==
LOC: ED 20:04 → SUATTDRO 11-27 01:07 → EDIPHOLD 11-27 01:07 → 3S 11-27 05:19
PROVIDERS: ADMIT Internal Medicine; ATTEND Internal Medicine

== ENCOUNTER 2018-12-15 11:01 | Inpatient (IN) ==
[2018-12-15] MEDS ORDERED: NITROGLYCERIN LINGUAL SPRAY SL PRN (11:54)
--- NOTE | 2018-12-15 12:32 | Diag Imaging Result Doc PS360 ---
EXAM: CHEST-2 VIEWS HISTORY: SOB TECHNIQUE: Chest two views COMPARISON: 11/28/2018 FINDINGS: The lungs are well expanded. The heart is not enlarged. The vessels are not distended. There are no infiltrates. No pleural effusions. No change in the upper lumbar compression fractures or in the mid thoracic compression fracture. IMPRESSION: No acute abnormality. Electronically signed by Trevin Morales 12/15/2018 12:30 PM
[2018-12-15 12:43] LABS: CALCIUM 8.5 mg/dL (8.8-10.2); CREATININE 1.3 mg/dL (0.7-1.2); POTASSIUM 4.4 mmol/L (3.5-5.1); TOTAL BILIRUBIN 0.96 mg/dL (0.20-1.00)
[2018-12-15] MEDS: ZOSYN 3.375 GM in NS 50 ML IV SCH ×2 (12:50→18:02)
[2018-12-15] MEDS: TRANSDERM-SCOP TD SCH (12:50)
[2018-12-15 13:48] LABS: ALLEN TEST YES; BE -1.1 mmoll (-3.0-3.0); BLOOD TYPE ARTERIAL; HCO3-(ACT) 23.9 mmoll (20.0-26.0); O2(CT) 18.5 mL/dL (15.0-23.0); O2HB 92.8 % (95.0-99.0); PCO2(98.6) 34 mmHg (35-45); PO2(98.6) 66 mmHg (60-100); SAMPLE BLOOD; SAO2 96.4 % (95.0-100.0); THB 14.2 g/dL (11.5-17.4); pH(98.6) 7.43 (7.35-7.45)
[2018-12-15 13:49] LABS: MODALITY ROOM AIR
[2018-12-15] MEDS: DUONEB (A & A) INH PRN (15:37)
[2018-12-15] MEDS ORDERED: NEXIUM IV SCH (19:15)
[2018-12-15] MEDS ORDERED: SODIUM CHLORIDE 0.9% INJ SCH (19:15)
[2018-12-15] MEDS ORDERED: PROTONIX IV SCH (19:30)
[2018-12-15] MEDS: ZANAFLEX PO SCH (20:07)
[2018-12-15] MEDS ORDERED: ENTRESTO 24 MG-26 MG TABLET PO SCH (21:00)
--- NOTE | 2018-12-15 22:14 | HISTORY AND PHYSICAL ---
CHIEF COMPLAINT: "I was referred to your office today on a stat basis by Dr. Guaman." HISTORY OF PRESENT ILLNESS: He is an 83-year-old, white gentleman, has a history of difficulty in swallowing due to cricopharyngeal achalasia and corkscrew esophagus, recurrent choking spells, aspiration bronchitis. Basically, went to his office for followup, possible EGD involvement. Obviously, he was markedly wheezing and not able to breathe, and they sent over to my office. He was wheezing and pulse oximetry 97 percent. At the request of the family, he was readmitted again for recurrent aspiration pneumonia. The patient is also waiting to be seen by Dr. Roberts for kyphoplasty of T6. He is getting spasms in the back and this is the 4th admission with recurrent aspiration bronchitis. 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 PAST SURGICAL HISTORY: Multiple stents, Achilles tendon repair, TURP. MEDICATIONS: Metoprolol 50 daily, Multaq 400 daily, tizanidine 4 mg daily, calcitonin spray 1 every day, Nexium 40 daily, calcium with vitamin D3 one tablet daily, calcitriol 0.25 mcg daily, Entresto 24/26 one tablet daily, Ultracet t.i.d. ALLERGIES: Sulfa. SOCIAL HISTORY: , 5 kids. 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 No smoking. No alcohol. No drug abuse. FAMILY HISTORY: Father at the age of 60 of unknown cause. Mom . HEALTH MAINTENANCE: Dr. Kidd is monitoring prostate cancer, colonoscopy in 2005. Flu vaccine February 2018, pneumococcal vaccine 2017. REVIEW OF SYSTEMS: HEENT: No headache. No vision problem. No earache. No sore throat. Neck: No goiter. No lymphadenopathy. No bruit. Cardiopulmonary: Cough, shortness of breath, wheezing, mid back pain. Gastrointestinal: No nausea, vomiting, abdominal pain. Genitourinary: No history of hesitancy, frequency, dysuria. No swelling of legs. No joint pain. Neurologic: No focal symptoms or weakness. PHYSICAL EXAMINATION: VITAL SIGNS: Temperature is 98 degrees, pulse 86, blood pressure is stable, 94% on room air. HEENT: Atraumatic, normocephalic. Pupils equal, react to light. TMs are normal. No oral thrush noted. Good gag reflex. NECK: Supple. No lymphadenopathy. CHEST: Wheezing. CARDIOVASCULAR: Heart sounds are very distant. GASTROINTESTINAL: Belly is soft, nontender, with good bowel sounds. RECTAL: Deferred. EXTREMITIES: No peripheral edema or cyanosis. NEUROLOGIC: No obvious neurological deficits. INVESTIGATIONS: ABG, pH is 7.43, pCO2 is 34, PO2 is 66 on room air. Sodium 132, potassium 3.4, BUN 26, creatinine 1.3. ProBNP 1946. Cardiac enzymes were negative. ASSESSMENT AND PLAN: 1. An 83-year-old, white gentleman, with recurrent dysphagia due to achalasia and corkscrew esophagus with aspiration bronchitis. Chest x-ray is stable. Plan is scopolamine patch, nitroglycerin, and semirecumbent position, evaluation of sleep apnea. 2. T6 compression fracture due to trauma. Continue on calcium, vitamin D, calcitonin, and back brace. Waiting for kyphoplasty. 3. GI consult for EGD. 4. Chronic atrial fibrillation, on Multaq and metoprolol. 5. Ischemic cardiomyopathy. Continue on Entresto 1 tablet daily. 6. Muscle spasms, on Zanaflex and Ultracet. 7. Aspiration bronchitis. IV Zosyn. cc: Hector Junior MD [facility]
[2018-12-16] MEDS: ZOSYN 3.375 GM in NS 50 ML IV SCH ×5 (00:36→23:44)
[2018-12-16] MEDS ORDERED: ZANAFLEX PO SCH (09:00)
[2018-12-16] MEDS ORDERED: XYLOCAINE-MPF 2% ONE ×2 (09:22→09:34)
[2018-12-16] MEDS ORDERED: DIPRIVAN 1% ONE (09:25)
[2018-12-16] MEDS ORDERED: AMIDATE ONE (09:27)
[2018-12-16] MEDS ORDERED: FENTANYL ONE (09:29)
[2018-12-16] MEDS ORDERED: VENTOLIN HFA ONE (09:47)
--- NOTE | 2018-12-16 09:56 | ENDOSCOPY OPERATIVE NOTE ---
[facility] ENDOSCOPY OPERATIVE NOTE , PATIENT: Doug Zurita ADMISSION DATE: 12/16/2018 MR#: [id number] : 1935 [id number] EGD PROCEDURE REPORT PROCEDURE DATE: 12/16/2018 SURGEON: Efraín Guaman MD STATUS: inpatient PREPLEATER: PREOPERATIVE DIAGNOSIS: The patient is a 83 yr old male here for an EGD due to dysphagia, pharyngeal -esophageal . PROCEDURE PERFORMED: EGD w/ biopsy MEDICATIONS: Per Anesthesia TOPICAL ANESTHETIC: Lidocaine [place] CONSENT: The patient understands the risks and benefits of the procedure and understands that these r isks include, but are not limited to: sedation, allergic reaction, infection, perforation and/or bleeding. Alternative means of evaluation and treatment include, among others: physical exam, x-rays, and/or surgical intervention. The patient elects to proceed with this endoscopic procedure. HISORY AND PHYSICAL: 12/16/2018 function. Hand hygiene and appropriate measures for infection prevention was taken. After the risks, benefits and alternatives of the procedure were thoroughly explained, Informed consent was verified, confirmed and timeout was successfully executed by the treatment team. The patient was anesthetized with topical anesthesia and the [id number] ([id number]) endoscope was introduced through the mouth and advanced to the second portion of the duoden um. Retroflexion was performed in the stomach and revealed no abnormalities. The gastroscope was then slowly withdraw n and removed. ESOPHAGUS: The z-line was noted at 41cm from the incisors. The z-line appeared normal. Corkscrew e sophagus found in the distal third of the esophagus. Two non-bleeding, punctate and clean-based ulcers ranging betwee n 3-7mm in size were found in the distal esophagus likely pill-induced since ulcer was located on upper rim of corksc rew. Biopsies were taken at edge of the ulcers. No evidence of esophagitis, candiasis, or strictures. STOMACH: Mild gastritis (inflammation) was found in the entire examined stomach. DUODENUM: The duodenum was normal. SPECIMENS REMOVED: Yes ADVERSE EVENTS: There were no complications. POSTOPERATIVE DIAGNOSIS: 1. The z-line was noted at 41cm from the incisors 2. Corkscrew esophagus found in the distal third of the esophagus 3. Two ulcers ranging between 3-7mm in size were found in the distal esophagus; biopsies were taken 4. No evidence of esophagitis, candiasis, or strictures 5. Gastritis (inflammation) was found in the entire examined stomach 6. The duodenum was normal RECOMMENDATIONS: 1. Await biopsy results 2. GI soft diet 3. Pantoprazole 40mg PO BID for 3 months 4. Patient will need outpatient referral for esophageal manometry upon discharge to evaluate for eso phageal spasm vs achalasia. REPEAT EXAM: for Return in 3 months for EGD to assess for esophageal ulcer healing. Efraín Guaman MD eSigned: Efraín Guaman MD 12/16/2018 9:56 AM cc: PATIENT NAME: Doug Zurita MR#: [id number]
--- NOTE | 2018-12-16 10:22 | GASTROENTEROLOGY CONSULTATION ---
DATE: 12/16/2018 REASON FOR CONSULTATION: Dysphagia to solids and liquids. HISTORY OF PRESENT ILLNESS: Mr. Doug Zurita is an 83-year-old gentleman with past medical history of atrial fibrillation on Multaq and aspirin, systolic CHF with EF of 35%, CAD, status post NE x2, prostate cancer, who was seen in hospitalization followup yesterday by myself for persistent dysphagia to solids and liquids. The patient was recently discharged from the hospital at the end of 11/2018 after presenting with aspiration pneumonia and T2 compression fracture. During his hospitalization, he reported acute on chronic dysphagia. A modified barium swallow was performed which showed corkscrew esophagus and esophageal spasm but no fixed obstruction. He was noted during his hospitalization to have oropharyngeal thrush and was treated empirically for phu esophagitis. Upon discharge, his shortness of breath and dysphagia resolved up until about a week ago when he started to notice increased difficulty with breathing as well as gurgling in his oropharynx. Three days ago, he took some tramadol which resolved all of the symptoms temporarily; however, this was short lived, and he was seen yesterday with increased shortness of breath, wheezing and cough. He does report some pleuritic chest pain radiating from his back to the front of his abdomen. No fevers or sweats. Some constipation. No rectal bleeding or melena. He was instructed to follow up with his PCP, who directly admitted him to the hospital yesterday. PAST MEDICAL HISTORY: Systolic CHF with EF of 35%, coronary artery disease, status post NE x2, paroxysmal atrial fibrillation, prostate cancer, hypertension, CKD, chronic back pain, neurogenic bladder, left bundle branch block, polycythemia vera, history of subarachnoid bleed. PAST SURGICAL HISTORY: TURP, Achilles tendon repair. HOME MEDICATIONS: Metoprolol, Multaq, Ambien, tizanidine, calcitonin, Nexium, calcium with vitamin D, calcitriol, Entresto, tramadol. ALLERGIES: Sulfa. FAMILY HISTORY: Negative for GI malignancy. SOCIAL HISTORY: He is a former smoker. No alcohol or drug use. 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 REVIEW OF SYSTEMS: As per HPI, otherwise 12-point review of systems is negative. PHYSICAL EXAMINATION: Vital signs: Temperature 98.6, heart rate 73, respiratory rate 18, blood pressure 98/58, O2 saturation is 94% on room air. General: The patient is awake, alert, oriented, no acute distress. HEENT: Sclerae anicteric. Moist mucous membranes. Extraocular movements were intact. Neck: Supple. No JVD or lymphadenopathy. Cardiac: Regular rate and rhythm. No murmurs. Lungs: Mild increased work of breathing. He does have some upper airway wheezing. No crackles. Abdomen is soft, nontender. Normoactive bowel sounds. No rebound or guarding. Extremities: No cyanosis, clubbing or edema. Neurologic: Nonfocal. DIAGNOSTIC DATA: He had an ABG with a pH of 7.4, pCO2 of 34, pO2 of 66 on room air. Sodium is 132, potassium 4.4, chloride 97, bicarb 22, BUN of 26, creatinine 1.3. LFTs are normal. ProBNP of 1946. Albumin 3.0. IMAGING: Chest x-ray shows the lungs are well expanded. The heart is not enlarged. There are no infiltrates or pleural effusions. No change in the upper lumbar compression fractures or in the mid thoracic compression fracture. No acute abnormalities. Prior modified barium swallow: The oral phase appeared within functional limits with good oral bolus manipulation and posterior propulsion. The swallow response initiation appeared timely. The pharyngeal phase appeared within functional limits. There was no airway penetration or waldemar aspiration observed. There were several cervical osteophytes observed with minimal impression of the posterior pharyngeal and esophageal bryant. There was no significant stasis observed in the pharynx after the swallow. A moderate muscular prominence was observed in the posterior esophageal wall in the proximal esophagus at the level of the cricopharyngeus, consistent with moderate UES achalasia. It appeared mild to moderately obstructive with different bolus consistencies but no repenetration of any swallowed bolus back into the pharynx was observed. No other obstructions or strictures were observed in the proximal esophagus. Severe diffuse esophageal spasms with a very severe corkscrew esophagus at the distal third were observed in the distal esophagus, resulting in moderate severe dysmotility and proximal redirection of swallowed food and liquids in the upper third of the esophagus. There was dilation of the mid third just above the very strong area of spasm in the mid esophagus and diffuse spasms observed throughout the bottom two-thirds of the esophagus. As a result, complete emptying of the swallowed contrast, food and liquid was not observed during the study, and the patient is at high risk for proximal redirection of swallowed food and liquid to the level of the pharynx, even while sitting upright, but especially when lying down and during hours of sleep, with pharyngeal penetration and aspiration highly likely. ASSESSMENT AND PLAN: Mr. Doug Zurita is an 83-year-old gentleman with past medical history of paroxysmal atrial fibrillation, on Multaq and aspirin, who represents with shortness of breath and recurrent dysphagia to solids and liquids. Prior modified barium swallow shows question cricopharyngeal dysphagia or achalasia as well as corkscrew esophagus. The patient reports some temporary relief between his hospitalizations with recurrence over the last several days. He is compliant with PPI. He denies any further thrush. His oropharynx is clear. We will plan to keep him n.p.o. today with diagnostic EGD this morning. Further recommendations post procedure. # Dysphagia # SOB # Cough # Afib Thank you for this consult. We will follow with you. Please call with any questions or concerns. cc: Hector Junior MD [facility]
[2018-12-16] MEDS: MULTAQ PO SCH (10:29)
[2018-12-16] MEDS: ASPIRIN PO SCH (10:29)
[2018-12-16] MEDS: ZANAFLEX PO SCH ×2 (10:29→20:18)
[2018-12-16] MEDS: ROCALTROL PO SCH (10:29)
[2018-12-16] MEDS: LOPRESSOR PO SCH (10:29)
[2018-12-16] MEDS: FORTICAL NAS SCH (10:30)
[2018-12-16] MEDS: ENTRESTO 24 MG-26 MG TABLET PO SCH ×3 (10:30→15:49)
[2018-12-16] MEDS: OSCAL 500 + D PO SCH (10:30)
[2018-12-16] MEDS: DUONEB (A & A) INH PRN ×3 (11:21→21:59)
[2018-12-16] MEDS: CLINIMIX E 4.25%-5% SOLUTION 1,000 ML IV SCH (11:47)
[2018-12-16] MEDS: ULTRACET 37.5MG/325MG PO PRN (15:35)
[2018-12-16] MEDS: SOLU-MEDROL IV SCH (16:50)
[2018-12-16] MEDS: PROTONIX PO SCH (20:18)
--- NOTE | 2018-12-16 22:09 | PROGRESS NOTE ---
DATE: 12/16/2018 SUBJECTIVE: The patient continues to have wheezing, difficulty in swallowing, and back pain is slightly better. I appreciated Dr. Guaman's consult. He performed EGD. It showed corkscrew esophagus, esophageal ulcers, reflux disease. He is markedly wheezing. Intravenous steroid was added. Scopolamine patch was given. REVIEW OF SYSTEMS: Difficulty in swallowing. OBJECTIVE: Temperature is 98.3, pulse 82, blood pressure 101/47.HEENT: Within normal limits. Neck: Supple. No lymphadenopathy. No thrush. Chest: Bilateral wheezing. Distant heart sounds. Belly is soft and nontender. No obvious neurological deficits. INVESTIGATIONS: Chest x-ray, stable. PO2 of 66. SMA-7 normal. ASSESSMENT AND PLAN: 1. Intermittent dysphagia due to corkscrew esophagus. Continued on nitroglycerin. 2. Aspiration bronchitis. Intravenous steroids. On Zosyn. 3. Nutrition. Intravenous Clinimix. 4. T6 compression fracture. Waiting for kyphoplasty. Due to trauma. 5. Prostate cancer. Stable. PSA was 17. 6. Deep vein thrombosis and gastrointestinal prophylaxis. As per order sheet. 7. Ischemic cardiomyopathy. Stable, on Lopressor, Entresto. We will continue present treatment over the weekend. We will hopefully discharge on Wednesday, to see Dr. Roberts for kyphoplasty. LEVEL OF DOCUMENTATION: 25 minutes. cc: Hector Junior MD [facility]
[2018-12-17] MEDS: ZOSYN 3.375 GM in NS 50 ML IV SCH ×3 (05:37→17:56)
[2018-12-17] MEDS: PROTONIX PO SCH ×2 (06:10→21:56)
[2018-12-17] MEDS: DUONEB (A & A) INH PRN ×3 (09:28→21:33)
[2018-12-17] MEDS: ASPIRIN PO SCH (09:43)
[2018-12-17] MEDS: ZANAFLEX PO SCH ×2 (09:43→21:56)
[2018-12-17] MEDS: LOPRESSOR PO SCH (09:43)
[2018-12-17] MEDS: ROCALTROL PO SCH (09:43)
[2018-12-17] MEDS: MULTAQ PO SCH (09:43)
[2018-12-17] MEDS: OSCAL 500 + D PO SCH (09:43)
[2018-12-17] MEDS: FORTICAL NAS SCH (09:43)
[2018-12-17] MEDS: ENTRESTO 24 MG-26 MG TABLET PO SCH (09:43)
[2018-12-17] MEDS: CLINIMIX E 4.25%-5% SOLUTION 1,000 ML IV SCH (09:50)
--- NOTE | 2018-12-17 13:07 | PROGRESS NOTE ---
DATE: 12/17/2018 SUBJECTIVE: Mr. Zurita is an 83-year-old white gentleman, has intermittent dysphagia due to corkscrew esophagus. He is on nitroglycerin, and he has aspiration bronchitis. It appears like he still has a lot of wheezing. His electrolytes reveal sodium of 132, BUN is 26, creatinine is 1.3, pO2 was 66. He has been on Zosyn as well as IV Clinimix. Overall condition is otherwise unchanged. We will continue with the current management. He is also getting methylprednisolone 40 mg IV 24 hours, which we will continue since he has persistent wheezing. -4 cc: MD Hector James MD
[2018-12-17] MEDS: ULTRACET 37.5MG/325MG PO PRN (15:13)
[2018-12-17] MEDS: SOLU-MEDROL IV SCH (15:15)
[2018-12-18] MEDS: ZOSYN 3.375 GM in NS 50 ML IV SCH ×4 (00:31→18:35)
[2018-12-18] MEDS ORDERED: HALL'S COUGH LOZENGE MT PRN (04:12)
[2018-12-18] MEDS: PROTONIX PO SCH ×2 (06:24→20:04)
[2018-12-18] MEDS: DUONEB (A & A) INH PRN ×3 (07:49→22:29)
[2018-12-18] MEDS: ULTRACET 37.5MG/325MG PO PRN ×2 (08:03→20:03)
[2018-12-18] MEDS: CLINIMIX E 4.25%-5% SOLUTION 1,000 ML IV SCH (08:04)
[2018-12-18] MEDS: ROCALTROL PO SCH (08:06)
[2018-12-18] MEDS: OSCAL 500 + D PO SCH (08:06)
[2018-12-18] MEDS: ZANAFLEX PO SCH ×2 (08:06→20:04)
[2018-12-18] MEDS: ENTRESTO 24 MG-26 MG TABLET PO SCH (08:07)
[2018-12-18] MEDS: FORTICAL NAS SCH (08:07)
[2018-12-18] MEDS: LOPRESSOR PO SCH (08:07)
[2018-12-18] MEDS: MULTAQ PO SCH (08:07)
[2018-12-18] MEDS: ASPIRIN PO SCH (08:07)
--- NOTE | 2018-12-18 08:42 | Diag Imaging Result Doc PS360 ---
EXAM: CHEST-2 VIEWS 12/18/2018 HISTORY: aspiration bronchitis TECHNIQUE: PA and lateral chest COMMENT: There are ill-defined and platelike opacities in both lung bases. This appears slightly worse than on 12/15/2018. The heart size and primary vascularity are within normal limits. IMPRESSION: Slightly worsened bibasilar atelectasis versus pneumonia. Electronically signed by Charlie Lewis 12/18/2018 8:40 AM
[2018-12-18] MEDS ORDERED: VANCOMYCIN IV PER PHARMACY MISC SCH (10:30)
[2018-12-18] MEDS ORDERED: VANCOMYCIN 1.4 GM in NS 250 ML IV SCH (12:00)
--- NOTE | 2018-12-18 12:40 | PROGRESS NOTE ---
DATE: 12/18/2018 Mr. Zurita's vital signs are stable. He says he is feeling fine. His lungs reveal some pulmonary congestion. However, chest x-ray showed bilateral pneumonia. He is already on piperacillin and we are going to add vancomycin on top of that. Overall condition is otherwise stable. Otherwise stable. -9 cc: MD Hector James MD
[2018-12-18] MEDS: TRANSDERM-SCOP TD SCH (12:49)
[2018-12-18] MEDS: SOLU-MEDROL IV SCH (15:39)
[2018-12-19] MEDS: ZOSYN 3.375 GM in NS 50 ML IV SCH ×2 (01:12→06:34)
[2018-12-19] MEDS: PROTONIX PO SCH (06:34)
[2018-12-19 07:56] VITALS: BP 110/82
[2018-12-19] MEDS: ULTRACET 37.5MG/325MG PO PRN (07:59)
[2018-12-19] MEDS: MULTAQ PO SCH (08:00)
[2018-12-19] MEDS: ROCALTROL PO SCH (08:00)
[2018-12-19] MEDS: LOPRESSOR PO SCH (08:00)
[2018-12-19] MEDS: OSCAL 500 + D PO SCH (08:00)
[2018-12-19] MEDS: ENTRESTO 24 MG-26 MG TABLET PO SCH (08:00)
[2018-12-19] MEDS: ASPIRIN PO SCH (08:00)
[2018-12-19] MEDS: ZANAFLEX PO SCH (08:00)
[2018-12-19] MEDS: FORTICAL NAS SCH (08:01)
--- NOTE | 2018-12-19 22:23 | DISCHARGE SUMMARY ---
ADMISSION DATE: 12/15/2018 DISCHARGE DATE: 12/19/2018 DISCHARGING DIAGNOSIS: 1. 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 2. Intractable back pain due to T6 compression fracture due to trauma. Elevated PSA 17 with prostate cancer. Hypogonadism on testosterone shots along with sildenafil. 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 Abnormal EKG with left bundle. Chronic intermittent atrial fibrillation not able to take anticoagulation due to bleeding. 3. Subarachnoid bleed. 4. Ischemic cardiomyopathy ejection fraction 30%. Coronary artery disease with multiple stents. 5. Chronic kidney disease creatinine 1.6 level 3. 6. Gout, hypertension, chronic lower back pain due to bulging disk. CONSULTS: Dr. Guaman. PROCEDURES: EGD findings, multiple findings of presbyesophagus, esophageal ulcers. BRIEF HISTORY: Please see the H and P that was done on day of admission 12/15/2018. In brief he is 83-year-old white gentleman with recurrent aspiration, asthmatic bronchitis due to HANCOCK-2 esophagus was readmitted at the request of Dr. Guaman who is going to perform EGD. HOSPITAL COURSE: He was given scopolamine patch and nitroglycerin spray, bronchodilators, IV steroids, IV antibiotics. Follow up chest x-ray, no evidence of pneumonitis other than atelectasis. Patient was given incentive spirometry. EGD findings were discussed. This time his options are relaxation, sublingual nitroglycerin and calcium channel blockers. He also has intractable back pain due to T6 compression fracture. He is feeling much better. He wants to go home. LABS: ABG, pH is 7.43, pCO2 34, PO2 66. SMA 7 sodium 132, potassium 4.4, chloride 97, BUN 26, creatinine 1.3, calcium 8.5. ProBNP 1946. The patient was discharged home with the following instructions. Metoprolol 50 daily, Multaq 400 daily, tizanidine 4 mg daily, calcitonin 1 spray every daily, Nexium 40 mg daily, calcium with vitamin D 1 tablet daily, calcitriol 0.25 mcg daily, Entresto 24/26 mg daily, Ultracet as needed for pain, Levaquin 500 daily for 7 days, scopolamine patch every 72 hours, Medrol Dosepak, nebulizers treatment as discussed. He is going to see Dr. Will for the kyphoplasty at T6 compression fracture and will follow up. cc: Hector Junior MD
== END 2018-12-19 08:44 | disposition home health service (06) | DRG 178 ==
LOC: DIRADM 11:01 → 3N 11:29
PROVIDERS: ADMIT Internal Medicine; ATTEND Internal Medicine

== ENCOUNTER 2019-01-14 07:50 | Inpatient (IN) ==
[2019-01-14] MEDS ORDERED: DUONEB (A & A) INH ONE (08:16)
--- NOTE | 2019-01-14 08:37 | PROVIDER DOCUMENTATION ---
HPI-Respiratory General - General Chief Complaint: SEPSIS ALERT - D Stated Complaint: SOB,COUGHING,FEVER,CHILLS Time Seen by Provider: 01/14/19 08:14 Source: patient, family Allergies/Adverse Reactions: Patient Allergies Allergy/AdvReac Type Severity Reaction Status Date / Time Sulfa (Sulfonamide Allergy Intermediate HIVES Verified 01/14/19 08:48 Antibiotics) zolpidem [From Ambien] AdvReac Unknown Verified 01/15/19 10:41 Home Medications: Home Medication List Medication Instructions Recorded Confirmed Last Taken Type Metoprolol [Lopressor] 50 mg PO DAILY 01/09/15 01/14/19 01/13/19 History Dronedarone HCl [Multaq] 400 mg PO DAILY 02/03/17 01/14/19 01/13/19 History Calcitonin [Fortical] 1 spray INTRANASAL DAILY #3 bottle 12/07/18 01/14/19 01/13/19 Rx Calcitriol [Rocaltrol] 0.25 microgm PO DAILY #90 cap 12/07/18 01/14/19 01/13/19 Rx Calcium Carbonate/Vitamin D3 1 ea PO DAILY #90 tab 12/07/18 01/14/19 01/13/19 Rx [Oscal 500 + D] Esomeprazole [Nexium] 40 mg PO DAILY #30 cap 12/07/18 01/14/19 01/13/19 Rx Sacubitril/Valsartan [Entresto 24 1 ea PO DAILY 12/15/18 01/14/19 01/13/19 History mg-26 mg Tablet] Tramadol HCl/Acetaminophen 1 ea PO TID PRN 12/15/18 01/14/19 01/13/19 History [Tramadol-Acetaminophn 37.5-325] Albuterol 2.5MG/Ipratrop 0.5MG 3 ml INH Q6H PRN PRN neb 12/19/18 01/14/19 01/13/19 Rx [Duoneb (A & A)] Scopolamine 1.5 mg/72 Hr Patch 1 ea TD Q72H #3 patch 12/19/18 01/14/19 01/13/19 Rx [Transderm-Scop] Levofloxacin [Levaquin] 500 mg PO DAILY #7 tab 01/20/19 Unknown Rx - History of Present Illness-Resp Nature of Presenting Problem: A 83 Y/O MALE PRESENTS WITH C/O COUGH, SOB. PER PT HIS SYMPTOMS HAVE GOT WORSE SINCE LAST NIGHT. COUGH IS PRODUCTIVE OF CLEAR SPUTUM. HAS BEEN HAVING CHILLS AND FELT WARM LAST NIGHT. HAS SOME CP WITH COUGHING AND FEELS SOB WITH ACTIVITY. DENIES ANY PALPITATIONS OR HEADACHE OR DIZZINESS OR NAUSEA OR VOMITING. ALSO C/O DRY MOUTH AND BURNING AT THE END OF URINATION. PER PT HE WAS STARTED ON ABXS LAST WEEK BUT HE STOPPED IT YESTERDAY THEY INTERFERED WITH HIS MULTAQ. PT IS ON SCOPALMINE AND HAS DRY MOUTH FROM IT. PER PT HE HAS BEEN HERE SEVERAL TIMES IN THE HOSPITAL IN PAST 2-3 MONTHS. Onset/Duration: reports: last night Timing: reports: still present, getting worse Cough Quality/Degree: reports: moderate, productive cough Episode Frequency: frequent episodes Current Respiratory Medication Therapy: Initiated see nurses note Modifying Factors: improves with: rest. worse with: exertion Associated Symptoms: reports: chest pain/soreness, cough, fever/chills, hurts to breathe, shortness of breath, wheezing. denies: dizziness, earache, facial pain, flu-like symptoms, headache, heart racing, hyperventilating Similar Symptoms Previously?: Yes Recently seen or treated by another doctor?: Yes Review of Systems - Adult - REVIEW OF SYSTEMS - ADULT Constitutional: reports: chills, fever Eyes: denies: no symptoms reported Ears, Nose, Mouth & Throat: denies: no symptoms reported Cardiovascular: reports: see HPI Respiratory: reports: see HPI Gastrointestinal: denies: no symptoms reported Genitourinary: reports: see HPI, dysuria Musculoskeletal: denies: no symptoms reported Integumentary: denies: no symptoms reported Neurological: denies: no symptoms reported Psychiatric: denies: no symptoms reported Endocrine: denies: no symptoms reported Hematologic/Lymphatic: denies: no symptoms reported Allergic/Immunologic: denies: no symptoms reported Past History - Adult - PAST MEDICAL HISTORY-ADULT Review of Records: reports: Old Records Reviewed, Nursing Assessment Review, Medications Reviewed, Social history reviewed & non-contributory. Major Childhood Illnesses: reports: denies history Cardiovascular: reports: A-Fib, CAD, CHF, HTN, [place] Respiratory: reports: COPD Gastrointestinal: reports: denies history Obstetrical/Gynecological: reports: denies history Genitourinary: reports: prostatitis Musculoskeletal: reports: denies history Neurological: reports: denies history Endocrine/Immune: reports: denies history Other Conditions: reports: denies history - PRIOR SURGERIES/PROCEDURES Surgical/Procedure History: reports: cardiac stent (x2) - IMMUNIZATION STATUS Childhood Immunizations: See Nurse Assessment Flu Vaccine: See Nurse Assessment - FAMILY HISTORY Family History: reviewed, not pertinent Physical Exam-General - PHYSICAL EXAM-ADULT Initial Vital Signs Reviewed: Yes - CONSTITUTIONAL General Appearance: alert, moderate distress - HEAD, EARS, NOSE, MOUTH & THROAT HENMT: normocephalic/atraumatic. negative: moist mucous membranes - NECK Neck: supple - RESPIRATORY Respiratory: decreased breath sounds, accessory muscle use, rhonchi, wheezing, increased rate - CARDIOVASCULAR Cardiovascular: no murmur, tachycardia - GASTROINTESTINAL (ABDOMEN) Abdominal Exam: non tender, soft - MUSCULOSKELETAL Back Exam: no CVA tenderness Extremity: normal inspection, no pedal edema Peripheral Pulses: radial (R): 2+, radial (L): 2+ - SKIN Integumentary: normal color, warm/dry - NEUROLOGIC Neurologic: grossly normal - PSYCHIATRIC Psych/Mental Status: normal mood/affect, normal thought content, normal thought process, oriented x 3 - HEART Score HEART Score: History: Slightly Suspicious HEART Score: ECG: Non-Specific Repolarization Disturbance/LBBB/PM HEART Score: Age: > or = 65 Years HEART Score: Risk Factors for Atherosclerotic Disease: 1 or 2 Risk Factors HEART Score: Troponin: < or = Normal Limit Total HEART Score:: 4 Progress - PLAN OF CARE/RESULTS Progress/Plan/Lab Results: Orders Category Date Time Status Admit [facility] Routine AdmDCTranf 01/14/19 10:01 Active Cardiac Monitoring DIRECTED Care 01/14/19 08:09 Completed IV Insertion ORDERED Care 01/14/19 08:09 Completed Notify MD of + Sepsis Screen NOW Care 01/14/19 08:09 Completed Notify Physician As Ordered Care 01/14/19 08:09 Active CHEST-1 VIEW [RAD] Stat Exams 01/14/19 08:09 Completed BLOOD CULTURE [BLDCUL] Stat Lab 01/14/19 08:30 Completed CBC WITH DIFF [HEME] Stat Lab 01/14/19 08:30 Completed CK PROFILE [SP CHEM] Stat Lab 01/14/19 08:30 Completed COMPREHENSIVE METABOLIC PANEL [CHEM] Stat Lab 01/14/19 08:30 Completed LACTATE, PLASMA [CHEM] Lab 01/14/19 08:30 Completed LACTATE, PLASMA [CHEM] Lab 01/14/19 11:35 Completed LACTATE, PLASMA [CHEM] Lab 01/14/19 14:41 Completed PROTIME WITH INR [COAG] Stat Lab 01/14/19 08:30 Completed PTT [COAG] Stat Lab 01/14/19 08:30 Completed TROPONIN T Stat Lab 01/14/19 08:30 Completed UA NIMS W/REFLEX CULT [URINALYSIS] Stat Lab 01/14/19 10:00 Completed pro-bnp [PRO B-NATRIURETIC PEPTIDE] Stat Lab 01/14/19 08:30 Completed Albuterol 2.5MG/Ipratrop 0.5MG [Duoneb (A & A)] Med 01/14/19 08:16 Discontinued 9 ml INH NOW ONE Pharmacy Order [Vancomycin IV Per Pharmacy] Med 01/14/19 09:15 Discontinued 1 each MISC DIRECTED Piperacillin/Tazobactam [Zosyn] 4.5 gm Med 01/14/19 09:13 Discontinued 0.9% Sodium Chloride Inj [Ns] 100 ml IV NOW Vancomycin 1,400 mg Med 01/15/19 11:00 Discontinued 0.9% Sodium Chloride Inj [Ns] 250 ml IV Q24H Vancomycin 2,000 mg Med 01/14/19 10:30 Discontinued 0.9% Sodium Chloride Inj [Ns] 500 ml IV ONCE Aerosol Treatments Routine Oth 01/14/19 08:16 Completed Aerosol Treatments Stat Oth 01/14/19 08:16 Completed Oxygen Device Stat Oth 01/14/19 08:09 Completed EKG [EKG] Stat Ther 01/14/19 08:46 Draft Transfer/Admit Order [TRANSFER] Routine Transfer 01/14/19 10:04 Completed Result Diagrams: 01/18/19 05:50 01/18/19 05:50 - EKG 1 Time of EKG reading by physician:: 08:56 EKG Read and Signed by:: Harper Richard EKG Interpretation (*Must complete 3 of following elements*): Abnormal Rate: 101 Rhythm: SINUS TACHYCARDIA WITH OCCASIONAL PREMATURE VENTRICULAR COMPLEXES [place]: left QRS: LBB [place] Interval: normal Comments: ABNORMAL ECG - CONSULTS/PCP/HOSPITALIST Notification #1 *Consult/PCP/Hospitalist*: D/W DR COLMENARES Time Discussed: 09:52 Consult Disposition: Admit Departure - Departure Date of Disposition Decision: 01/14/19 Time of Disposition Decision: 10:00 DIAGNOSIS: Shortness of breath, Sepsis, Aspiration pneumonia Disposition: ADMITTED INPATIENT 09 Certified Medical Emergency: Emergent Condition: Stable - Critical Care Note This patient required my direct & personal management of CC.: No Attestation - Physician/ DION Attestation Patient care was provided by Advanced Practice Provider:: No The physician spent face to face time with patient:: Yes Advanced Practice Provider documentation review:: Supervising physician onsite and consulted in the evaluation and care of this patient. The physician did have a face to face encounter with the patient.
--- NOTE | 2019-01-14 09:00 | Diag Imaging Result Doc PS360 ---
CHEST-1 VIEW - 01/14/2019 INDICATION: sepsis prot COMPARISON: 12/18/2018 FINDINGS: Stable moderately low lung volumes. There is new infiltrate throughout the left midlung and lung base. No pneumothorax or pleural effusion. Heart size is top normal. IMPRESSION: Infiltrate throughout the left midlung and lung base suggesting bronchopneumonia. Electronically signed by Jaden Toussaint 01/14/2019 8:58 AM
[2019-01-14 09:03] LABS: BASO# 0.02 X1000 (0.0-0.2); BASO% 0.1 % (0.0-0.8); EOS# 0.02 X1000 (0.0-0.7); EOS% 0.1 % (0.0-10.0); HEMATOCRIT 45.7 % (42.0-52.0); HEMOGLOBIN 14.6 g/dL (14.0-18.0); IMM GRAN# 0.05 X1000 (0.0-0.04); IMM GRAN% 0.3 % (0.0-0.5); LYMPH# 0.94 X1000 (1.2-3.4); LYMPH% 5.5 % (20.5-51.1); MCH 27.8 PG (27-31); MCHC 31.9 g/dL (33-37); MCV 86.9 FL (81-99); MONO# 1.65 X1000 (0.11-0.59); MONO% 9.6 % (1.7-9.3); MPV 10.6 FL (7.4-10.4); NEUT# 14.43 X1000 (1.4-6.5); NEUT% 84.4 % (42.2-75.2); PLT 219 X1000 (130-400); RBC 5.26 XMIL (4.7-6.1); RDW 24.5 % (11.5-14.5); WBC 17.11 X1000 (4.8-10.8)
[2019-01-14] MEDS ORDERED: ZOSYN 4.5 GM in NS 100 ML IV ONE (09:13)
[2019-01-14 09:15] LABS: ALB/GLOB RATIO 1.8; ALBUMIN 3.5 g/dL (3.5-5.0); CALCIUM 8.7 mg/dL (8.8-10.2); CREATININE 1.4 mg/dL (0.7-1.2); POTASSIUM 4.7 mmol/L (3.5-5.1); TOTAL BILIRUBIN 0.86 mg/dL (0.20-1.00); TOTAL PROTEIN 5.5 g/dL (6.3-8.3)
[2019-01-14] MEDS ORDERED: VANCOMYCIN IV PER PHARMACY MISC SCH (09:15)
[2019-01-14 09:56] LABS: INR 1.05; PROTIME 13.8 Seconds (11.0-16.0)
[2019-01-14 09:57] LABS: PTT 30.7 Seconds (22.3-41.8)
[2019-01-14 10:20] LABS: URINE SOURCE CLEAN CATCH
[2019-01-14 10:25] LABS: BILIRUBIN URINE NEGATIVE (NEGATIVE); BLOOD URINE NEGATIVE (NEGATIVE); COLOR YELLOW; GLUCOSE URINE NEGATIVE (NEGATIVE); KETONE URINE 10 mg/dL (NEGATIVE); LEUKOCYTES URINE NEGATIVE (NEGATIVE); NITRITE URINE NEGATIVE (NEGATIVE); PROTEIN URINE NEGATIVE (NEGATIVE); SP GRAVITY URINE 1.016; TURBIDITY URINE CLEAR (CLEAR); UROBILINOGEN URINE NORMAL (NORMAL)
[2019-01-14 10:28] LABS: UR EPITHELIAL CELLS <10 /HPF (<10); URINE BACTERIA NEGATIVE /HPF; URINE RBC <10 /HPF (<10); URINE WBC <10 /HPF (<10)
[2019-01-14] MEDS ORDERED: VANCOMYCIN 2,000 MG in NS 500 ML IV ONE (10:30)
[2019-01-14] MEDS ORDERED: TYLENOL PO PRN (12:15)
--- NOTE | 2019-01-14 14:48 | EKG Report ---
Test Performed on : 01/14/2019 08:56:41 AM Test Reason : Sepsis Protocol Blood Pressure : / mmHG Vent. Rate : 101 BPM Atrial Rate : 101 BPM P-R Int : 184 ms QRS Dur : 144 ms QT Int : 342 ms P-R-T Axes : 073 -70 081 degrees QTc Int : 443 ms Sinus tachycardia. with occasional premature ventricular complexes. Left axis deviation Left bundle branch block Abnormal ECG When compared with ECG of 26-NOV-2018 20:12, (Unconfirmed) premature atrial complexes. are no longer present Unconfirmed Result
[2019-01-14] MEDS: ZOSYN 3.375 GM in NS 50 ML IV SCH ×2 (16:20→22:19)
[2019-01-14] MEDS: NS 1,000 ML IV SCH (16:20)
--- NOTE | 2019-01-14 16:31 | HISTORY AND PHYSICAL ---
CHIEF COMPLAINT: Shortness of breath. PRESENT ILLNESS: The patient is an 83-year-old white male who was in the hospital last month for pneumonia and comes in again with cough. He had been treated with Levaquin for few days and then he read where Levaquin and his Multaq probably should not be mixed together and he stopped it yesterday. When he came in the emergency room he was given breathing treatments for shortness of breath and it was noted that he had left lung mostly in the mid lung valadez and lower lung field pneumonia. We are admitting him for that reason. 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 PAST SURGICAL HISTORY: Includes multiple stents, Achilles tendon repair, TURP. MEDICATIONS: Include metoprolol 50 mg daily, Multaq 400 mg daily, tizanidine 4 mg daily, calcitonin spray 1 daily, Nexium 40 mg daily, calcium with vitamin D3 1 tablet daily, calcitriol 0.25 mcg daily, Entresto 24/26 1 tablet daily and Ultracet 1 p.o. t.i.d. ALLERGIES: He is allergic to sulfa. SOCIAL HISTORY: Patient is , he has 5 children. 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 Has not smoked in 70 years approximately, does not use alcohol. No drug abuse. FAMILY HISTORY: Father at age 50 of unknown cause, his mother is also . REVIEW OF SYSTEMS: Neurological: Denies headaches, seizures, visual problems. Pulmonary: Has had a cough that is fairly productive but with clear sputum, has had some wheezing, uses breathing treatments at home as well and he has had since his last admission. Cardiovascular: Denies chest pain, heart palpitations, PND, orthopnea. No pedal edema. GI: Does have trouble swallowing certain food, says he has to have regular diet or it comes back up. Genitourinary: Has had a TURP in the past and prostate cancer. Endocrine: Is no diabetes or pituitary problems . PHYSICAL EXAMINATION: GENERAL: He is well-developed, well-nourished white male in no apparent distress. Blood pressure is 99/57, respirations 16, pulse 90, temperature 98.1 degrees Fahrenheit. HEENT: He is normocephalic. EOMS intact. PERRLA. Throat clear. LUNGS: Have scattered rales but no wheezes at this time. I hear more in the left base and left mid lung field. HEART: Sounds regular rate and rhythm without murmurs, gallops, friction rubs. ABDOMEN: Soft, active bowel sounds. No organomegaly or tenderness. GENITOURINARY: External genitalia exam deferred. Rectal exam deferred. INTEGUMENT: Shows no lesions consistent with melanoma other skin cancers. Lymph nodes are nonpalpable in cervical, supraclavicular areas. NEUROLOGICAL: Cranial nerves 2-12 intact grossly, sensory motor intact, reflexes 1+ all. ASSESSMENT: 1. Pneumonia on left lung valadez. 2. Coronary artery disease. 3. Congestive heart failure. PLAN: Will start on IV antibiotics, breathing treatments. Please see orders. cc: Shahid Leonard Jr, MD
[2019-01-15] MEDS: ZOSYN 3.375 GM in NS 50 ML IV SCH ×4 (03:57→21:00)
[2019-01-15] MEDS: NS 1,000 ML IV SCH ×2 (03:58→18:37)
[2019-01-15] MEDS: DUONEB (A & A) INH PRN ×4 (05:32→21:46)
--- NOTE | 2019-01-15 07:31 | Diag Imaging Result Doc PS360 ---
CHEST-PORTABLE - 01/15/2019 INDICATION: pneumonia COMPARISON: 01/14/2019 FINDINGS: There are hazy, shifting opacities in the midlungs bilaterally, improved on the left side and worsening on the right side. Stable cardiomegaly and pulmonary vascular congestion. No significant pleural effusion. IMPRESSION: Cardiomegaly and pulmonary vascular congestion. Shifting atelectasis centrally. Overall no change from prior. Electronically signed by Jaden Toussaint 01/15/2019 7:29 AM
[2019-01-15] MEDS: FORTICAL NAS SCH (08:14)
[2019-01-15] MEDS: ROCALTROL PO SCH (08:15)
[2019-01-15] MEDS: OSCAL 500 + D PO SCH (08:15)
[2019-01-15] MEDS: MULTAQ PO SCH (08:15)
[2019-01-15] MEDS: NEXIUM PO SCH (08:15)
[2019-01-15] MEDS: LOPRESSOR PO SCH (08:15)
[2019-01-15] MEDS: ENTRESTO 24 MG-26 MG TABLET PO SCH (08:15)
[2019-01-15] MEDS ORDERED: LASIX IV ONE (10:27)
[2019-01-15] MEDS ORDERED: PROSOM PO PRN (10:37)
--- NOTE | 2019-01-15 10:58 | PROGRESS NOTE ---
DATE: 01/15/2019 SUBJECTIVE: The patient says he feels a little bit better. He has been wheezing just a little bit. I looked back at his last echocardiogram, which was in November of this year, and he had a 25% to 30% ejection fraction. OBJECTIVE: Vital Signs: Blood pressure is 130/64, respirations 20, pulse 79, temperature 97.7 degrees Fahrenheit, oxygen saturation is 97% on 3 L. HEENT: Normocephalic. EOMs intact. PERRLA. Throat clear. Lungs: Scattered rales and occasional wheeze. Chest x-ray shows cardiomegaly and pulmonary vascular congestion, shifting atelectasis centrally. Overall, no change from prior. It was felt that he had pneumonia, but there may also be some congestive heart failure with this as well. Heart: Regular rate and rhythm without murmurs, gallops, friction rubs. Abdomen: Soft. Active bowel sounds. No organomegaly or tenderness. Neurological: Intact grossly. LABORATORY DATA: White count yesterday was 17,110, hemoglobin 14.6. ProBNP was 1496. Creatinine 1.4. Urinalysis essentially normal. ASSESSMENT: 1. Pneumonia, bacterial. 2. Congestive heart failure. 3. Bronchospasm. PLAN: Will give him 60 mg of Lasix IV. Will continue his antibiotics. Get another chest x-ray in the morning, and lab work. cc: Sahhid Leonard Jr, MD
[2019-01-15] MEDS ORDERED: VANCOMYCIN 1,400 MG in NS 250 ML IV SCH (11:00)
[2019-01-15] MEDS ORDERED: ZOSYN ONE (11:37)
[2019-01-15] MEDS: RESTORIL PO PRN (20:49)
[2019-01-16] MEDS: ZOSYN 3.375 GM in NS 50 ML IV SCH ×4 (03:34→22:42)
[2019-01-16 06:31] LABS: BASO# 0.03 X1000 (0.0-0.2); BASO% 0.3 % (0.0-0.8); EOS# 0.32 X1000 (0.0-0.7); EOS% 3.7 % (0.0-10.0); HEMATOCRIT 45.3 % (42.0-52.0); HEMOGLOBIN 14.2 g/dL (14.0-18.0); IMM GRAN% 0.7 % (0.0-0.5); LYMPH# 1.07 X1000 (1.2-3.4); LYMPH% 12.5 % (20.5-51.1); MCHC 31.3 g/dL (33-37); MCV 89.3 FL (81-99); MONO# 0.96 X1000 (0.11-0.59); MONO% 11.2 % (1.7-9.3); MPV 10.6 FL (7.4-10.4); NEUT# 6.15 X1000 (1.4-6.5); NEUT% 71.6 % (42.2-75.2); PLT 179 X1000 (130-400); RBC 5.07 XMIL (4.7-6.1); RDW 25.3 % (11.5-14.5); WBC 8.59 X1000 (4.8-10.8)
[2019-01-16 06:32] LABS: IMM GRAN# 0.06 X1000 (0.0-0.04)
[2019-01-16 06:45] LABS: CREATININE 1.6 mg/dL (0.7-1.2)
--- NOTE | 2019-01-16 06:47 | Diag Imaging Result Doc PS360 ---
CHEST-PORTABLE - 01/16/2019 INDICATION: pneumonia/ chf COMPARISON: 01/15/2019 FINDINGS: There is some worsening strandy infiltrate in the right lung base probably the right lower lobe. There is some faint left lower lobe atelectasis as well. Heart size is top normal. No pneumothorax or large pleural effusion. IMPRESSION: Worsening right basilar infiltrate or atelectasis. Electronically signed by Jaden Toussaint 01/16/2019 6:44 AM
[2019-01-16] MEDS: OSCAL 500 + D PO SCH (08:51)
[2019-01-16] MEDS: LOPRESSOR PO SCH (08:51)
[2019-01-16] MEDS: NEXIUM PO SCH (08:51)
[2019-01-16] MEDS: ENTRESTO 24 MG-26 MG TABLET PO SCH (08:51)
[2019-01-16] MEDS: ROCALTROL PO SCH (08:52)
[2019-01-16] MEDS: MULTAQ PO SCH (08:52)
[2019-01-16] MEDS: FORTICAL NAS SCH (08:52)
[2019-01-16] MEDS: TRANSDERM-SCOP TD SCH (08:52)
[2019-01-16] MEDS: DUONEB (A & A) INH PRN (10:46)
[2019-01-16] MEDS: NS 1,000 ML IV SCH (19:41)
[2019-01-16] MEDS ORDERED: POTASSIUM CHLORIDE 20 MEQ/SWI 20 MEQ/100 ML IVPB IV SCH (20:00)
[2019-01-16] MEDS: KLOR-CON PO SCH (22:41)
[2019-01-16] MEDS: RESTORIL PO PRN (22:42)
[2019-01-17] MEDS: ZOSYN 3.375 GM in NS 50 ML IV SCH ×5 (05:05→22:01)
--- NOTE | 2019-01-17 06:49 | PROGRESS NOTE ---
DATE: 01/16/2019 SUBJECTIVE: Interval history was reviewed. The patient was admitted on 01/14/[address] Leonard for shortness of breath, aspiration bronchitis. The patient is well-known from previous admissions. The patient's family wants a 2nd opinion with this lung disease, this recurrent asthmatic bronchitis. REVIEW OF SYSTEMS: Shortness of breath, cough, and wheezing. No chest pain. No swelling of feet. PAST MEDICAL HISTORY: Reviewed. PAST SURGICAL HISTORY: Reviewed. MEDICINES: Reviewed. ALLERGIES: Sulfa. PHYSICAL EXAMINATION: Temperature is 97.6 degrees, pulse 78, blood pressure 123/55.HEENT: Within normal limits. Neck: Supple. No lymphadenopathy. Chest: Bilateral wheezing. Heart: Sounds are regular. Belly is soft, nontender. No edema noted. INVESTIGATIONS: CBC: White cell count 8.5, hematocrit 45, platelets 179,000. Sodium 143, potassium 3, chloride 105, BUN 13, creatinine 1.6. ProBNP 1486. Urinalysis is clear. Blood cultures are negative. Chest x-ray, worsening of right basilar infiltrate. ASSESSMENT AND PLAN: 1. 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 Continue sublingual nitroglycerin, scopolamine patch. 2. Aspiration bronchitis, currently receiving IV Zosyn. 3. Chronic kidney disease, stable. 4. Prostate cancer, off testosterone. 5. Paroxysmal atrial fibrillation with ischemic cardiomyopathy on Multaq, metoprolol and Entresto. The patient is not a candidate for anticoagulation due to subarachnoid bleed. 6. T6 compression fracture status post kyphoplasty, better. Continue on calcium, calcitriol, vitamin D. Continue on GI prophylaxis with Nexium. 7. Atelectasis, incentive spirometry. 8. Hypokalemia, replace the potassium. Consult with Dr. Heath. LEVEL OF DOCUMENTATION: [25). cc: MD Shahid Bundy Jr, MD MTDD
[2019-01-17 06:57] LABS: BASO# 0.05 X1000 (0.0-0.2); BASO% 0.5 % (0.0-0.8); EOS# 0.38 X1000 (0.0-0.7); HEMOGLOBIN 14.8 g/dL (14.0-18.0); IMM GRAN# 0.07 X1000 (0.0-0.04); IMM GRAN% 0.7 % (0.0-0.5); LYMPH# 1.13 X1000 (1.2-3.4); LYMPH% 11.9 % (20.5-51.1); MCH 28.2 PG (27-31); MCHC 31.5 g/dL (33-37); MCV 89.5 FL (81-99); MONO# 0.99 X1000 (0.11-0.59); MONO% 10.4 % (1.7-9.3); MPV 10.2 FL (7.4-10.4); NEUT# 6.86 X1000 (1.4-6.5); NEUT% 72.5 % (42.2-75.2); PLT 213 X1000 (130-400); RBC 5.25 XMIL (4.7-6.1); RDW 24.7 % (11.5-14.5); WBC 9.48 X1000 (4.8-10.8)
[2019-01-17 07:44] LABS: CALCIUM 8.4 mg/dL (8.8-10.2); CREATININE 1.4 mg/dL (0.7-1.2); POTASSIUM 3.7 mmol/L (3.5-5.1)
--- NOTE | 2019-01-17 08:50 | PULMONOLOGY CONSULTATION ---
DATE: 01/16/2019 REQUESTING PHYSICIAN: Dr. Junior. REASON FOR CONSULTATION: Recurrent bronchitis. HISTORY OF PRESENT ILLNESS: Mr. Zurita is an 83-year-old male who has had several admissions to the hospital over the last 3 months. Chest x-ray has revealed pneumonia in different lobes. The patient underwent a modified barium swallow on 12/01/2018, which revealed a moderate upper esophageal sphincter achalasia but with severe esophageal spasms with a visual appearance of a corkscrew esophagus resulting in redirection of the food bolus to the upper 3rd of the esophagus. He subsequently underwent an EGD on 12/16/2018, which revealed a corkscrew esophagus, 2 small ulcers in the distal esophagus, and gastritis. Biopsies were performed and it was recommended that the patient be referred for esophageal manometry to evaluate for esophageal spasm versus achalasia. The patient continues to lose weight, likely related to limiting his diet. He presented to the emergency room 01/14/2019 with cough, increasing shortness of breath and chills. Chest x-ray revealed new infiltrates throughout the left mid lung. He is clinically improving with antibiotics and his leukocytosis has resolved. PAST MEDICAL HISTORY: 1. Recurrent aspiration as per above. 2. Upper esophageal achalasia as per above. 3. Corkscrew esophagus as per above. 4. Ischemic cardiomyopathy with an ejection fraction of 30% with prior myocardial infarction and myocardial stenting. 5. Prostate cancer with prior surgery. 6. Paroxysmal atrial fibrillation. 7. Prior intracranial hemorrhage. 8. Paroxysmal atrial fibrillation. 9. History of polycythemia. 10. History of neurogenic bladder. SOCIAL HISTORY: The patient has a limited tobacco history. He previously reports 1 to 2 glasses of alcohol per week. 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 FAMILY HISTORY: Noncontributory to current presentation. PHYSICAL EXAMINATION: General: Reveals a well-developed, well-nourished male resting comfortably and in no distress. Vital Signs: Blood pressure 134/81, heart rate 87, respiratory rate 18, oxygen saturation 99%. HEENT: Pupils are equal and reactive. Oropharynx is clear. Neck: Supple. Chest: Reveals scattered rhonchi bilaterally. Cardiac: S1-S2. Abdomen: Soft. Extremities: Without edema. LABORATORIES/X-RAY: Chest x-ray today reveals some increased right basilar infiltrate with some improvement on the left. IMPRESSION: 1. 83-year-old with recurrent aspiration pneumonia.. 2. Esophageal dysfunction. 3. Cardiomyopathy. DISCUSSION: An 83-year-old with problems discussed above. The patient may also have a component of dementia. Although he appears articulate, he did not recall being evaluated by Dr. Guaman and did not remember undergoing an EGD, although it is well documented in this hospital record. The patient will likely have ongoing aspiration events if his dysfunctional esophagus cannot be improved. Dr. Guaman's note did mention that manometry should be performed. I would recommend checking with Dr. Guaman to see whether manometry has been performed to rule out achalasia and whether this would be of benefit. The patient does report episodes of eating full meals and then having them return which may not support the diagnosis of achalasia, which could be treated. If his esophageal dysfunction cannot be improved, then his only option would be to find an alternative route for nutrition such as a PEG tube. RECOMMENDATIONS: 1. Continue antibiotics for aspiration pneumonia. 2. Safe swallowing practices were recommended. The patient should also eat small meals and avoid meals late in the evening. He should keep the head of his bed elevated. 3. Consider alternative forms of feeding if his esophageal dysfunction cannot be improved. cc: MD Shahid Whitfield Jr, MD
[2019-01-17] MEDS: ENTRESTO 24 MG-26 MG TABLET PO SCH (08:54)
[2019-01-17] MEDS: LOPRESSOR PO SCH (08:54)
[2019-01-17] MEDS: MULTAQ PO SCH (08:54)
[2019-01-17] MEDS: OSCAL 500 + D PO SCH (08:55)
[2019-01-17] MEDS: KLOR-CON PO SCH ×2 (08:55→22:01)
[2019-01-17] MEDS: NEXIUM PO SCH (08:55)
[2019-01-17] MEDS: ROCALTROL PO SCH (08:55)
[2019-01-17] MEDS: FORTICAL NAS SCH (11:14)
[2019-01-17] MEDS: DUONEB (A & A) INH PRN ×3 (11:15→21:18)
--- NOTE | 2019-01-17 21:41 | PROGRESS NOTE ---
DATE: 01/17/2019 SUBJECTIVE: Patient is still coughing and wheezing. Appreciated Dr. Heath's consult. He is not in any respiratory distress. OBJECTIVE: Vital Signs: Temperature is 97 degrees. Pulse is 84. Vitals are stable. HEENT: Within normal limits Chest: Decreased wheezing. Heart: Sounds are regular. Abdomen: Belly is soft, nontender. Neurologic: No obvious deficits. INVESTIGATIONS: CBC: White cell count 9.4, hematocrit 47, platelets 213,000. Sodium 141, potassium 3.7, chloride 104, BUN 10, creatinine 1.4, glucose 70. Blood cultures are negative. ASSESSMENT AND PLAN: 1. Recurrent aspiration bronchitis. Appreciate Dr. Heath's consult. Continue incentive spirometry, antibiotics, bronchodilators. 2. Other problems are stable. Other options are consider manometric studies in [place], and other options are discussed. Will continue present treatment. LEVEL OF DOCUMENTATION: 25 minutes. cc: MD Shahid Bundy Jr, MD
[2019-01-17] MEDS: RESTORIL PO PRN (22:01)
[2019-01-17] MEDS: ULTRACET 37.5MG/325MG PO PRN (22:02)
--- NOTE | 2019-01-17 22:16 | PULMONOLOGY PROGRESS NOTE ---
DATE: 01/17/2019 SUBJECTIVE: The patient is awake and alert. He continues to cough but reports he feels slightly better. OBJECTIVE: Vital Signs: The patient has been afebrile for the last 24 hours. Blood pressure 109/63, heart rate 80, respiratory rate 18, oxygen saturation 95% on room air. HEENT: Pupils are equal and reactive. Oropharynx appears clear. Neck: Supple. Chest: Reveals occasional rhonchi bilaterally, but with marginal improvement compared to yesterday. Abdomen: Soft. Extremities: Without edema. LABORATORY DATA: White blood count 9.48, hemoglobin 14.8, platelet count 213,000 sodium 141, potassium 3.7, chloride 104, bicarbonate 23, BUN 10, creatinine 1.4. Microbiology: Reveals no new data. IMPRESSION: An 83-year-old with: 1. Recurrent aspiration pneumonia. 2. Cardiomyopathy. 3. Esophageal dysfunction. 4. Component of denial of his current illness. PLAN: 1. Continue antibiotics for aspiration. 2. Consider manometry evaluation in [place]. 3. Continue safe swallowing practices. 4. We will obtain follow-up chest x-ray tomorrow. cc: MD Shahid Whitfield Jr, MD
[2019-01-18] MEDS: ZOSYN 3.375 GM in NS 50 ML IV SCH ×5 (04:47→20:59)
[2019-01-18 06:42] LABS: BASO# 0.04 X1000 (0.0-0.2); BASO% 0.6 % (0.0-0.8); EOS# 0.24 X1000 (0.0-0.7); EOS% 3.3 % (0.0-10.0); HEMOGLOBIN 14.3 g/dL (14.0-18.0); IMM GRAN# 0.06 X1000 (0.0-0.04); IMM GRAN% 0.8 % (0.0-0.5); LYMPH# 1.35 X1000 (1.2-3.4); LYMPH% 18.7 % (20.5-51.1); MCH 27.8 PG (27-31); MCHC 31.1 g/dL (33-37); MCV 89.5 FL (81-99); MONO# 0.97 X1000 (0.11-0.59); MONO% 13.4 % (1.7-9.3); MPV 10.1 FL (7.4-10.4); NEUT# 4.57 X1000 (1.4-6.5); NEUT% 63.2 % (42.2-75.2); PLT 206 X1000 (130-400); RBC 5.14 XMIL (4.7-6.1); RDW 24.6 % (11.5-14.5); WBC 7.23 X1000 (4.8-10.8)
[2019-01-18 06:56] LABS: CALCIUM 8.3 mg/dL (8.8-10.2); CREATININE 1.3 mg/dL (0.7-1.2); POTASSIUM 3.5 mmol/L (3.5-5.1)
--- NOTE | 2019-01-18 07:35 | Diag Imaging Result Doc PS360 ---
CHEST-2 VIEWS - 01/18/2019 INDICATION: abnormal exam COMPARISON: 01/16/2019 FINDINGS: There is continued improvement in the minimal infiltrate in the right lung base. No new infiltrates. Heart size and pulmonary vascularity is normal. IMPRESSION: Improvement in the minimal nonspecific infiltrate or atelectasis in the right lung base. Electronically signed by Jaden Toussaint 01/18/2019 7:33 AM
[2019-01-18] MEDS: ENTRESTO 24 MG-26 MG TABLET PO SCH (08:48)
[2019-01-18] MEDS: OSCAL 500 + D PO SCH (08:48)
[2019-01-18] MEDS: MULTAQ PO SCH (08:48)
[2019-01-18] MEDS: ROCALTROL PO SCH (08:48)
[2019-01-18] MEDS: LOPRESSOR PO SCH (08:48)
[2019-01-18] MEDS: FORTICAL NAS SCH (08:48)
[2019-01-18] MEDS: NEXIUM PO SCH (08:48)
[2019-01-18] MEDS: KLOR-CON PO SCH ×2 (08:48→20:59)
[2019-01-18] MEDS ORDERED: HALL'S COUGH LOZENGE MT PRN (08:58)
[2019-01-18] MEDS: DUONEB (A & A) INH PRN (10:05)
[2019-01-18] MEDS: RESTORIL PO PRN (20:59)
[2019-01-18] MEDS: ULTRACET 37.5MG/325MG PO PRN (20:59)
--- NOTE | 2019-01-18 22:02 | PROGRESS NOTE ---
DATE: 01/18/2019 SUBJECTIVE: The patient is doing a little better. Decreased wheezing. X-ray is also getting better. EXAMINATION: Vital signs: Temperature is 98 degrees, pulse 75, blood pressure is stable. HEENT: Within normal limits. Neck: Supple. No lymphadenopathy. Chest: Bilateral air entry. Heart: Sounds are regular. Abdomen: Belly is soft, nontender. Good bowel sounds. Neurologic: No obvious deficits. ASSESSMENT AND PLAN: 1. Aspiration bronchitis is getting better. Continue on bronchodilators and IV Zosyn, incentive spirometry. 2. T6 kyphoplasty, stable. 3. Paroxysmal atrial fibrillation ischemic cardiomyopathy, stable. Continue present treatment. Hopefully, clinically his is going to improve and Dr. Heath recommendations relayed to the patient. Other options are discussed. LEVEL OF DOCUMENTATION: 15 minutes. cc: MD Shahid Bundy Jr, MD
[2019-01-19] MEDS: ZOSYN 3.375 GM in NS 50 ML IV SCH ×5 (03:43→23:09)
[2019-01-19] MEDS: OSCAL 500 + D PO SCH (09:13)
[2019-01-19] MEDS: MULTAQ PO SCH (09:13)
[2019-01-19] MEDS: KLOR-CON PO SCH ×2 (09:13→20:51)
[2019-01-19] MEDS: NEXIUM PO SCH (09:13)
[2019-01-19] MEDS: ROCALTROL PO SCH (09:13)
[2019-01-19] MEDS: ENTRESTO 24 MG-26 MG TABLET PO SCH (09:13)
[2019-01-19] MEDS: TRANSDERM-SCOP TD SCH (09:13)
[2019-01-19] MEDS: FORTICAL NAS SCH (09:14)
[2019-01-19] MEDS: LOPRESSOR PO SCH (09:14)
[2019-01-19] MEDS: DUONEB (A & A) INH PRN (11:21)
[2019-01-19] MEDS: RESTORIL PO PRN (20:51)
[2019-01-19] MEDS: ULTRACET 37.5MG/325MG PO PRN (20:51)
--- NOTE | 2019-01-19 22:04 | PROGRESS NOTE ---
DATE: 01/19/2019 SUBJECTIVE: Patient is doing better. Decreased cough and wheezing. OBJECTIVE: Vital Signs: Temperature is 98.4 degrees, pulse 74, blood pressure is 101/61. HEENT: Within normal limits. Neck: Supple. No lymphadenopathy. Chest: Clear to auscultation. Heart: Sounds are regular. ASSESSMENT AND PLAN: Recurrent aspiration and bronchitis, getting better. Followup chest x-ray yesterday is improving. Continue present treatment with antibiotics, incentive spirometry, bronchodilators. If he continues to improve, will discharge in the morning. LEVEL OF DOCUMENTATION: 15 minutes. cc: MD Shahid Bundy Jr, MD
[2019-01-20] MEDS: ZOSYN 3.375 GM in NS 50 ML IV SCH ×2 (03:36→08:41)
[2019-01-20 07:30] VITALS: BP 130/72
[2019-01-20] MEDS: ENTRESTO 24 MG-26 MG TABLET PO SCH (08:42)
[2019-01-20] MEDS: OSCAL 500 + D PO SCH (08:42)
[2019-01-20] MEDS: LOPRESSOR PO SCH (08:42)
[2019-01-20] MEDS: NEXIUM PO SCH (08:42)
[2019-01-20] MEDS: KLOR-CON PO SCH (08:42)
[2019-01-20] MEDS: ROCALTROL PO SCH (08:42)
[2019-01-20] MEDS: MULTAQ PO SCH (08:42)
[2019-01-20] MEDS: FORTICAL NAS SCH (08:43)
--- NOTE | 2019-01-22 19:44 | DISCHARGE SUMMARY ---
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 SECONDARY DIAGNOSES: 1. T6 compression fracture, traumatic, status post kyphoplasty. 2. Prostate cancer. 3. Hypogonadism. 4. Abnormal electrocardiogram with left bundle. 5. Chronic intermittent atrial fibrillation. 6. Chronic kidney disease. 7. Ischemic cardiomyopathy, ejection fraction 30% with multiple stents. 8. Gout. 9. Hypertension. 10. Chronic back pain with bulging disk. CONSULTS: Dr. Heath. BRIEF HISTORY: Please see the H P that was done by Dr. Leonard. 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 The patient was given slow eating, sublingual nitroglycerin prior to the eating with scopolamine patch. He was not a candidate of calcium channel blockers due to underlying ischemic cardiomyopathy, EF 30% to 40%. He did develop some infiltrates, and patient was given oxygen, bronchodilators, IV Zosyn. Dr. Heath was consulted. Other options are discussed with manometric studies. The patient got better. Follow-up x-ray was improving. DIAGNOSTIC STUDIES: CBC: White cell count 7.28, hematocrit 46, platelets 206,000. Sodium 138, potassium 3.5, chloride 103, BUN 11, creatinine 1.3, glucose 79. Cardiac enzymes were negative. Troponin was normal proBNP 14 86. Urinalysis is clear. Blood cultures were negative. DISCHARGE INSTRUCTIONS: Patient was discharged with the following instructions: 1. Metoprolol 50 daily. 2. Multaq 400 daily. 3. Calcitonin spray, 1 spray in each nostril daily. 4. Nexium 40 daily. 5. Os-Sedrick with vitamin D 1 tablet daily. 6. Calcitriol 0.25 mcg daily. 7. Entresto 24/26 one tablet daily. 8. Ultracet for p.r.n. pain. 9. Scopolamine patch every 72 hours. 10. Levaquin 500 daily. 11. Albuterol/Atrovent nebulizers q.6 h. 12. He was also given Breo 1 spray every day. 13. Follow up in my office in 10 days. 14. Follow up with Dr Heath. cc: MD Shahid Bundy Jr, MD James E. Boyle, MD
== END 2019-01-20 09:58 | disposition home health service (06) | DRG 178 ==
LOC: ED 07:50 → 4N 10:11
PROVIDERS: ADMIT Emergency Medicine; ATTEND Internal Medicine

== ENCOUNTER 2019-02-21 09:06 | Inpatient (IN) ==
[2019-02-21 11:27] LABS: ALLEN TEST YES; BE -4.3 mmoll (-3.0-3.0); BLOOD TYPE ARTERIAL; HCO3-(ACT) 21.5 mmoll (20.0-26.0); METHB 1.5 % (0.0-1.5); O2(CT) 19.8 mL/dL (15.0-23.0); O2HB 95.3 % (95.0-99.0); PCO2(98.6) 29 mmHg (35-45); PO2(98.6) 94 mmHg (60-100); SAMPLE BLOOD; SAO2 98.7 % (95.0-100.0); THB 14.7 g/dL (11.5-17.4); pH(98.6) 7.42 (7.35-7.45)
[2019-02-21 11:29] LABS: MODALITY CANNULA
[2019-02-21 11:30] LABS: INR 1.12; PROTIME 14.5 Seconds (11.0-16.0)
[2019-02-21 11:42] LABS: ALB/GLOB RATIO 1.1; ALBUMIN 3.3 g/dL (3.5-5.0); CALCIUM 8.1 mg/dL (8.8-10.2); CREATININE 1.4 mg/dL (0.7-1.2); TOTAL BILIRUBIN 0.94 mg/dL (0.20-1.00); TOTAL PROTEIN 6.4 g/dL (6.3-8.3)
[2019-02-23 06:48] LABS: BASO# 0.01 X1000 (0.0-0.2); HEMATOCRIT 43.8 % (42.0-52.0); HEMOGLOBIN 13.7 g/dL (14.0-18.0); IMM GRAN% 0.9 % (0.0-0.5); LYMPH# 0.77 X1000 (1.2-3.4); LYMPH% 3.3 % (20.5-51.1); MCH 29.3 PG (27-31); MCHC 31.3 g/dL (33-37); MCV 93.8 FL (81-99); MONO# 0.74 X1000 (0.11-0.59); MONO% 3.2 % (1.7-9.3); MPV 10.7 FL (7.4-10.4); NEUT# 21.56 X1000 (1.4-6.5); NEUT% 92.6 % (42.2-75.2); PLT 259 X1000 (130-400); RBC 4.67 XMIL (4.7-6.1); RDW 16.6 % (11.5-14.5); WBC 23.28 X1000 (4.8-10.8)
[2019-02-23 07:00] LABS: LYMPHS 4 % (21-51); MONO 2 % (1-9); SEGS 94 % (42-75)
[2019-02-23 07:03] LABS: ALB/GLOB RATIO 1.4; ALBUMIN 3.1 g/dL (3.5-5.0); CALCIUM 7.8 mg/dL (8.8-10.2); CREATININE 1.2 mg/dL (0.7-1.2); POTASSIUM 4.6 mmol/L (3.5-5.1); TOTAL BILIRUBIN 0.38 mg/dL (0.20-1.00); TOTAL PROTEIN 5.3 g/dL (6.3-8.3)
[2019-02-24 06:20] LABS: BASO# 0.01 X1000 (0.0-0.2); BASO% 0.1 % (0.0-0.8); HEMATOCRIT 40.8 % (42.0-52.0); HEMOGLOBIN 12.5 g/dL (14.0-18.0); IMM GRAN# 0.19 X1000 (0.0-0.04); IMM GRAN% 1.1 % (0.0-0.5); LYMPH# 0.54 X1000 (1.2-3.4); MCHC 30.6 g/dL (33-37); MCV 94.7 FL (81-99); MONO# 0.82 X1000 (0.11-0.59); MONO% 4.6 % (1.7-9.3); MPV 10.7 FL (7.4-10.4); NEUT# 16.25 X1000 (1.4-6.5); NEUT% 91.2 % (42.2-75.2); PLT 251 X1000 (130-400); RBC 4.31 XMIL (4.7-6.1); RDW 16.9 % (11.5-14.5); WBC 17.81 X1000 (4.8-10.8)
[2019-02-24 07:36] LABS: LYMPHS 4 % (21-51); MONO 4 % (1-9); SEGS 92 % (42-75)
[2019-02-25 11:26] VITALS: BP 115/70
== END 2019-02-25 13:37 | disposition home or self-care (01) ==
LOC: DIRADM → OBSVTOIN 09:06 → 2N 09:43
PROVIDERS: ADMIT Internal Medicine; ATTEND Internal Medicine

== ENCOUNTER 2019-02-26 04:00 | Inpatient (IN) ==
[2019-02-26] MEDS ORDERED: LANOXIN ONE (04:43)
[2019-02-26] MEDS ORDERED: NS NEB INH SCH ×2 (04:45→09:15)
[2019-02-26] MEDS ORDERED: ZOFRAN IV PRN (04:45)
[2019-02-26 04:46] LABS: ALLEN TEST YES; BE -3.5 mmoll (-3.0-3.0); BLOOD TYPE ARTERIAL; HCO3-(ACT) 21.9 mmoll (20.0-26.0); METHB 1.2 % (0.0-1.5); PCO2(98.6) 27 mmHg (35-45); SAMPLE BLOOD; SAO2 92.7 % (95.0-100.0); THB 15.9 g/dL (11.5-17.4); pH(98.6) 7.45 (7.35-7.45)
[2019-02-26 04:49] LABS: MODALITY CANNULA
[2019-02-26 04:50] LABS: PO2(98.6) 49 mmHg (60-100)
[2019-02-26 04:51] LABS: O2HB 89.7 % (95.0-99.0)
[2019-02-26] MEDS ORDERED: LANOXIN IV ONE ×2 (04:52→10:47)
[2019-02-26] MEDS ORDERED: TORADOL IV ONE (04:56)
[2019-02-26] MEDS ORDERED: LASIX ONE (04:57)
[2019-02-26] MEDS ORDERED: LASIX IV ONE (05:00)
[2019-02-26 05:04] LABS: BASO# 0.03 X1000 (0.0-0.2); BASO% 0.2 % (0.0-0.8); EOS# 0.14 X1000 (0.0-0.7); EOS% 0.9 % (0.0-10.0); HEMATOCRIT 50.9 % (42.0-52.0); HEMOGLOBIN 15.8 g/dL (14.0-18.0); IMM GRAN# 0.72 X1000 (0.0-0.04); IMM GRAN% 4.4 % (0.0-0.5); LYMPH# 1.13 X1000 (1.2-3.4); MCV 93.4 FL (81-99); MONO# 0.27 X1000 (0.11-0.59); MONO% 1.7 % (1.7-9.3); MPV 10.3 FL (7.4-10.4); NEUT# 13.95 X1000 (1.4-6.5); NEUT% 85.8 % (42.2-75.2); PLT 313 X1000 (130-400); RBC 5.45 XMIL (4.7-6.1); RDW 17.1 % (11.5-14.5); WBC 16.24 X1000 (4.8-10.8)
[2019-02-26 05:10] LABS: INR 1.03; PROTIME 13.6 Seconds (11.0-16.0); PTT 22.2 Seconds (22.3-41.8)
[2019-02-26 05:19] LABS: AGAP 16; ALB/GLOB RATIO 1.1; ALBUMIN 3.3 g/dL (3.5-5.0); ALKALINE PHOSPHATASE 50 U/L (32-122); BUN 16 mg/dL (8-22); CALCIUM 8.6 mg/dL (8.8-10.2); CHLORIDE 104 mmol/L (98-107); COSMO 278; CREATININE 1.1 mg/dL (0.7-1.2); ESTIMATED GFR > 60; GLUCOSE 77 mg/dL (70-104); GOT 28 U/L (10-34); GPT 37 U/L (10-44); POTASSIUM 4.2 mmol/L (3.5-5.1); SODIUM 139 mmol/L (136-145); TCO2 19 mmol/L (25-35); TOTAL BILIRUBIN 0.51 mg/dL (0.20-1.00); TOTAL PROTEIN 6.2 g/dL (6.3-8.3)
--- NOTE | 2019-02-26 05:20 | EKG Report ---
Test Performed on : 02/26/2019 04:05:22 AM Test Reason : sob Blood Pressure : / mmHG Vent. Rate : 121 BPM Atrial Rate : 121 BPM P-R Int : 192 ms QRS Dur : 114 ms QT Int : 294 ms P-R-T Axes : 061 -74 086 degrees QTc Int : 417 ms Sinus tachycardia. with occasional ventricular-paced complexes and with occasional premature ventricu lar complexes. Left axis deviation Anteroseptal infarct , age undetermined Abnormal ECG When compared with ECG of 24-FEB-2019 06:28, Electronic ventricular pacemaker has replaced Sinus rhythm. Vent. rate has increased BY 64 BPM Unconfirmed Result
[2019-02-26] MEDS: NS 1,000 ML IV SCH ×3 (05:50→18:05)
[2019-02-26] MEDS: CLINDAMYCIN 600 MG/D5W 600 MG/50 ML IVPB IV SCH ×3 (05:51→20:31)
[2019-02-26] MEDS ORDERED: NS 500 ML IV ONE (06:00)
[2019-02-26] MEDS: PRILOSEC PO SCH (06:00)
[2019-02-26] MEDS ORDERED: CARDIZEM 125 MG/D5W 125 MG/125 ML IVPB IV SCH (06:00)
--- NOTE | 2019-02-26 06:05 | EKG Report ---
Test Performed on : 02/26/2019 05:55:41 AM Test Reason : SOB, RVR and ASCAD Blood Pressure : / mmHG Vent. Rate : 153 BPM Atrial Rate : 156 BPM P-R Int : 000 ms QRS Dur : 128 ms QT Int : 314 ms P-R-T Axes : 000 -77 079 degrees QTc Int : 501 ms Undetermined rhythm Left axis deviation Right bundle branch block Anteroseptal infarct , age undetermined Abnormal ECG When compared with ECG of 26-FEB-2019 04:05, (Unconfirmed) Current undetermined rhythm precludes rhythm comparison, needs review Confirmed by Dimitry Combs MD ([id number]) on 03/02/2019 8:57:34 AM
--- NOTE | 2019-02-26 06:43 | HISTORY AND PHYSICAL ---
INDICATION FOR ADMISSION: Atrial fibrillation with rapid ventricular response and shortness of breath, acute respiratory failure with CO2 retention. ADMITTING PHYSICIAN: Dr. Maged Chan. ATTENDING PHYSICIAN: Dr. Maged Chan. CHIEF COMPLAINT: As per chart. HISTORY OF PRESENT ILLNESS: Mr. Chan is an 83-year-old gentleman who is well known to me, having recently been discharged from the hospital yesterday for aspirative pneumonia secondary to esophageal dysfunction. Primarily a corkscrew esophagus. He was treated for 3 to 4 days with IV and then transitioned to oral, and felt to have benefitted from his stay, clinically stable with anticipated followup at the [facility], was discharged to home. The daughter reports that he laid around most of yesterday and went to bed early. He contacted his daughter in the early hours of this morning complaining of shortness of breath and difficulty breathing. He presents to the emergency room and he is noted to be in atrial fibrillation with RVR. He has a previous history of same. Additional medical problems include, but are not limited to, atherosclerotic coronary artery disease, personal history of malignant neoplasm of the prostate, history of pulmonary hypertension by cardiac echo, history of systolic congestive failure by cardiac echo, erectile dysfunction, and recent thoracic vertebrae fracture. Based on respiratory difficulty and atrial fibrillation with RVR, he is readmitted to the [facility]. He will start out in the ICU pending potential need for vasopressors and/or ventilatory support. ALLERGIES: To sulfa. MEDICATIONS: Multaq 200 mg b.i.d., Ultracet p.r.n., metoprolol was stopped at his recent discharge, sildenafil as directed, testosterone as directed. Patient was continued at home on both Augmentin and clindamycin, these will be transitioned back to IV Zosyn and clindamycin. FAMILY HISTORY: Father , 68 due to pneumonia. Mother at 97 secondary to kidney failure. Brother at 95, old age. Brother 100, old age. Sister 87 secondary to RI. Sister 75 with multiple medical problems. Brother at 47, motor vehicle accident, and an additional sister, 65 without any significant clinical history. SOCIAL HISTORY: Patient is with 5 children, 2 biologic and 3 adopted. He has 12 grandchildren and no great grandchildren. Patient having been for 38 years, in 2014 secondary to ovarian cancer. He does have a girlfriend. He is retired from [employer] practice after 55 years, retiring in 2007. 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 Patient has a remote and likely clinically insignificant history of tobacco of only 5-pack-year history. He reports 2 alcoholic drinks per week; has no recent foreign travel outside of the country. ONGOING CLINICAL SUBSPECIALTY SUPPORT: 1. Dr. Rosenbaum from Cardiology. 2. Dr. Guaman for GI. 3. Dr. Kidd and Dr. Chang for urologic concerns. 4. Dr. Heath for Pulmonology. His last comprehensive reassessment annual exam was 02/15/2019. He was last discharged from the hospital on 02/25/2019. REVIEW OF SYSTEMS: Unremarkable except that noted within the HPI. Again, the patient just spent 3 to 4 days in the hospital for an aspirative event resulting in bilateral lobar pneumonia. He was transitioned to oral and sent home yesterday, and presents to the emergency room with some atrial fibrillation with RVR, hypotension, and acute respiratory failure. PHYSICAL EXAMINATION: VITALS: In the emergency room, blood pressure 113/65, saturating 84% on room air. Respiratory rate at 19, temperature at 97.9 degrees. GENERAL: This is an elderly gentleman in a moderate amount of respiratory distress with use of accessory muscles. He is communicative and cooperative during the exam. HEENT: Oral mucosal membranes are dry and tacky. CARDIOVASCULAR: Tachycardia with irregularly rate and rhythm. LUNGS: Coarse and scattered rhonchi throughout. Some intermittent wheezing is appreciated as well. ABDOMEN: Hypoactive bowel sounds. EXTREMITIES: Benign with the exception of club forearm deformity and some cyanosis. There is no peripheral edema. Extremities are cool to the touch, the lower extremities. NEUROLOGICAL: Cranial nerves 2-12 are not assessed. Patient is alert and communicative, although continues to complain of respiratory difficulty and dry mouth. INITIAL LABORATORY: ABG alone, pH at 7.45, pCO2 at 27, PO2 at 49, bicarb at 21.9, oxygen saturation at 92%. Lactate noted to be elevated at 2.5. This was taken on oxygen at 6 L. EKG demonstrates atrial fibrillation with RVR. Some occasional PVCs are noted. Additional labs pending at the time of dictation, including a CBC, CK, a CMP, a ProBNP, a PT/INR, and a troponin T. Urinalysis is also pending. ASSESSMENT AND PLAN: The patient has received digoxin 0.25 mg IV x1 for atrial fibrillation with consideration that his blood pressure is low and Cardizem may result in further exacerbation of hypotension, also receiving a single dose of Lasix IV x1 and Toradol 30 mg IV x1 for nonspecific back pain, attempt to avoid narcotics secondary to precipitation of hypotension and respiratory failure. Patient is anticipated to be transferred to the ICU for ongoing clinical monitoring. Should he stabilize over the course of the next 12 to 24 hours, then he might be a candidate for the step-down unit. Further diagnostic workup, consideration and recommendations to follow pending review of additional labs. The patient and daughter understand the course of treatment and plan. No further issues at this time. cc: Maged Chan DO
[2019-02-26] MEDS ORDERED: DOPAMINE 800 MG/D5W 800 MG/500 ML IV.SOLN IV SCH (07:45)
--- NOTE | 2019-02-26 08:45 | Diag Imaging Result Doc PS360 ---
EXAM: CHEST-1 VIEW - 02/26/2019 HISTORY: SEPSIS PROTOCOL TECHNIQUE: Portable chest one view COMPARISON: 02/23/2019 FINDINGS: Heart size appears borderline enlarged. There has been development of infiltrate at the mid and lower lung on the right which is suspicious for pneumonia. The left lung appears essentially clear. There is no substantial pleural effusion or pneumothorax identified. IMPRESSION: Development of mid and lower lung infiltrate on the right, suspicious for pneumonia. Electronically signed by Hal Montano 02/26/2019 8:43 AM
[2019-02-26] MEDS ORDERED: XOPENEX NEB INH ONE (09:04)
[2019-02-26] MEDS ORDERED: LOPRESSOR PO SCH (09:15)
[2019-02-26] MEDS: XOPENEX NEB INH SCH ×3 (09:19→21:09)
[2019-02-26 09:46] LABS: URINE SOURCE CATH
--- NOTE | 2019-02-26 09:52 | PROGRESS NOTE ---
DATE: 02/26/2019 INDICATION FOR PROLONGED HOSPITALIZATION: Atrial fibrillation with AVR and hypotension. Mr. Olson was admitted earlier this morning through the ER with respiratory distress and atrial fibrillation with RVR. He continues to be in atrial fibrillation with a heart rate at 133 with occasional PVCs. He is requiring Ventimask for maintaining oxygenation at 95+ percent, and his pressure is 114/82. It was felt that when we started the Cardizem drip and he became hypotensive that he would best respond to vasopressor support. However, his both his heart rate and his blood pressure have been somewhat labile. He has historically been on beta savanah for rate control but was noted to be hypotensive last week and therefore it was stopped. He was continued on his Multaq. It is difficult to determine whether his hypotension is infection mediated, whether it is congestive failure and cardiac mediated or whether it might even be adrenal insufficiency mediated. He has a long history over the past several months of cortisone for breathing issues, specifically aspiration pneumonitis. Based on multiple criteria for sepsis and hypotension, he is admitted to the ICU for further observation. I am seeking the opinion of Cardiology regarding his congestive failure. He is currently not on any medications for congestive failure. 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 Rosenbaum secondary to potential for cough. I have advised the patient that we will not likely be able to continue in this admission without addressing the heart failure with medication. He has received 40 mg of Lasix IV in the emergency room and has put out about 635. The D-dimer might be spurious, but in light of his tachycardia, his cough and his hypotension, I do think that evaluating for pulmonary embolism should be considered. Pulmonary angiogram dated 11/26/2018 demonstrated history of bilateral lobar pneumonia with bronchitis and mucosal plugging. Patient and daughter understand the course of treatment and plan. No further issues at this time. We will be arranging for CT angiogram later this morning. Laboratory obtained in the emergency room is now available for review. White blood cell count at 16.24. He left the hospital yesterday at 17.81. This would be one of his lower readings in the past several months. H H at 15.8 and 50.9 with platelets at 313,000. Again, D-dimer elevated at 3.05. We will be proceeding with a CT angiogram to rule out the presence of pulmonary embolism as cause for tachycardia, hypotension and shortness of breath. He has been started back on broad- spectrum antibiotics which he was taking prior to his discharge. Bacterial/blood cultures are pending at the time of admission. He is noted to have metabolic acidosis as well as elevated lactate. We will continue to follow clinically in this regard. The patient understands course of treatment and plan. No further issues at this time. Looking forward to opinion of Cardiology forthcoming. Note is dictated on the morning of rounds. Note dictated at 9:16 a.m. Total time spent time at the bedside and in the intensive care unit is approximately 40 minutes. cc: Maged Chan DO
[2019-02-26 09:57] LABS: BILIRUBIN URINE NEGATIVE (NEGATIVE); BLOOD URINE LARGE (NEGATIVE); COLOR BROWN; GLUCOSE URINE NEGATIVE (NEGATIVE); KETONE URINE NEGATIVE (NEGATIVE); LEUKOCYTES URINE SMALL (NEGATIVE); NITRITE URINE NEGATIVE (NEGATIVE); PROTEIN URINE TRACE mg/dL (NEGATIVE); SP GRAVITY URINE 1.011; TURBIDITY URINE TURBID (CLEAR); UR EPITHELIAL CELLS >10 /HPF (<10); URINE BACTERIA NEGATIVE /HPF; URINE RBC TNTC /HPF (<10); UROBILINOGEN URINE NORMAL (NORMAL)
[2019-02-26] MEDS: MULTAQ PO SCH ×2 (10:09→20:31)
[2019-02-26 10:14] LABS: URINE CASTS EPITHELIAL PRESENT; URINE CRYSTALS NONE SEEN; URINE SMALL ROUND CELLS NONE SEEN; URINE YEAST NONE SEEN
[2019-02-26] MEDS: LOPRESSOR PO SCH ×2 (10:58→18:06)
[2019-02-26] MEDS: LOVENOX SUBQ SCH ×2 (11:04→22:57)
--- NOTE | 2019-02-26 13:36 | CONSULTATION ---
DATE OF CONSULTATION: 02/26/2019 IMPRESSION: 1. Recurrent atrial fibrillation with rapid ventricular rate despite dronedarone 200 mg by mouth twice daily. This has occurred in the setting of what appears to be recurrent aspiration with pneumonitis and hypoxemia, and as such, is not necessarily a spontaneous recurrence of atrial fibrillation, but possibly provoked by stress of noncardiac illness. 2. Paroxysmal atrial fibrillation. 3. Recurrent respiratory problems over the past year, with emerging evidence to support recurrent aspiration related to esophageal dysmotility/achalasia. 4. Atherosclerotic coronary disease with previous anterior myocardial infarction in the past, treated with coronary angioplasty/stenting. The patient has ischemic cardiomyopathy with fixed defect in the distal left anterior descending territory on fairly recent myocardial perfusion imaging, with a left ventricular ejection fraction around 30%. 5. Hypertensive cardiovascular disease. 6. Status post fall over a year ago, provoked by syncope related to coughing spell. The patient reportedly had intracranial hemorrhage while on Eliquis and Plavix. Eliquis and Plavix discontinued thereafter, but later resumed sometime last fall. Eliquis has since been resumed about 10 months or so ago because of recurrent bleeding with self-intermittent catheterization for bladder outlet problems. 7. Prostate cancer with previous surgery. 8. Previous bladder outlet problems, treated with self-intermittent catheterization. The patient has since had a transurethral resection of prostate, and has been able to avoid the need for self-intermittent catheterization. RECOMMENDATIONS: 1. The patient has had some tendency for hypotension with cardiovascular medications. Recommend discontinuing Cardizem, and utilizing metoprolol for rate control. Supplement with digoxin as needed. 2. Resume anticoagulation cautiously with Lovenox. The patient has significant CHADS-VASc score consistent with thromboembolic risk related to atrial fibrillation. It has been some time since his intracranial hemorrhage, and he was back on anticoagulation for a period of time last fall without difficulty. This was stopped because of bleeding issues related to self- intermittent catheterization. As he no longer requires self-intermittent catheterization, will try to resume anticoagulation initially with Lovenox, and ultimately transition him back to Eliquis. The risk/benefit ratio of anticoagulation was discussed with the patient at length, and he wished to proceed. 3. Continue Multaq for now. It would appear that this atrial fibrillation recurrence may have been provoked by aspiration pneumonitis/hypoxemia. HISTORY: This 83-year-old white male with past history of atherosclerotic coronary disease, ischemic cardiomyopathy, paroxysmal atrial fibrillation, hypertensive cardiovascular disease, COPD/bronchitis, and recurrent problems with respiratory difficulties, which ultimately proved to be related to recurrent aspiration and esophageal dysmotility, was admitted with recurrent shortness of breath and cough. He was just hospitalized and discharged yesterday. He has been in sinus rhythm on Multaq 200 mg twice daily. He was recently hospitalized for problems with recurrent aspiration-associated pneumonitis. He was just discharged yesterday morning. Last night, he developed shortness of breath and cough, which were rather persistent. He came to the hospital, and was found to be in atrial fibrillation with rapid ventricular rate. He was admitted to the intensive care unit. He has had some tendency for low blood pressure, particularly with agents like diltiazem. He has been administered digoxin in an effort to improve rate control. Metoprolol has been resumed. This was recently withdrawn due to problems with hypotension. At that time, he was also taking Entresto, which was also withdrawn. He denies any angina or orthopnea. He has been trying to not eat 3 hours before bedtime, but has not elevated the head of his bed. He has a followup appointment with [facility] with Dr. Pramod Sosa in the immediate future for further management of his esophageal motility problems. PAST MEDICAL HISTORY: 1. Atherosclerotic coronary disease with history of previous anterior myocardial infarction in the past, previous angioplasty/stenting of left anterior descending coronary, and ischemic cardiomyopathy with left ventricular ejection fraction of 30%. 2. Paroxysmal atrial fibrillation. 3. Hypertensive cardiovascular disease. 4. Low testosterone. 5. Prostate cancer. 6. Previous intracranial hemorrhage more than a year ago, provoked by a fall related to syncope during a coughing spell. He was on Eliquis and Plavix at that time. Anticoagulation was stopped at that time, but later resumed last fall. Anticoagulation thereafter discontinued again because of issues with hematuria with self-intermittent catheterization. PAST SURGICAL HISTORY: Includes Achilles tendon repair, transurethral resection of the prostate. ALLERGIES: He is allergic or intolerant to sulfa and zolpidem. MEDICATIONS PRIOR TO ADMISSION: As listed. 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 He is . He has several children. He quit smoking around 1969. He drinks infrequent alcoholic beverage. FAMILY HISTORY: Negative for premature coronary disease. REVIEW OF SYSTEMS: Pulmonary: Noteworthy for shortness of breath and cough, as well as history of recurrent aspiration. There has been no orthopnea. Gastrointestinal: Noncontributory beyond history of present illness. Constitutional: Negative for fever. Remainder of review of systems negative/noncontributory with 14 total systems reviewed. PHYSICAL EXAMINATION: General: This is an overweight, older, white male in no distress, on supplemental oxygen per mask. He intermittently coughs with a junky-sounding, rattling cough. Vital signs: Blood pressure 107/56, heart rate 115 and irregular with ECG monitor showing atrial fibrillation, oxygen saturation 99%. HEENT: Extraocular movements intact. Mucous membranes moist. Neck: Supple without jugular venous distention. No carotid bruits. Chest: Fairly clear to auscultation with minimal expiratory rhonchi. Cardiac: Irregular rate and rhythm without appreciable murmur or gallop. Abdomen: Soft, nontender. Bowel sounds are normal. Extremities: Without edema. Neurologic: He is alert and fully oriented. Speech is fluent. Moves all 4 extremities equally well. Skin: Warm and dry. Psychiatric: Mood is appropriate. DIAGNOSTIC DATA: A 12-lead EKG demonstrates atrial fibrillation with rapid ventricular rate, left axis deviation, and right bundle branch block. There is probably a left anterior fascicular block. Occasional premature ventricular or aberrantly conducted complexes demonstrated. LABORATORY DATA: Includes a white blood cell count of 16.24, hematocrit 50.9, hemoglobin 15.8, platelet count 313,000. Sodium 139, potassium 4.2, chloride 104, carbon dioxide 19, BUN 16, creatinine 1.1, glucose 77. cc: MD Maged Gross DO
--- NOTE | 2019-02-26 14:30 | Diag Imaging Result Doc PS360 ---
EXAM: CT ANGIOGRAM PULMONARY ARTERIES - 02/26/2019 HISTORY: SOB, Hypotension, Hypoxia, elevated D-dimer TECHNIQUE: CT angiogram pulmonary arteries with intravenous contrast. Axial, coronal, and 3-D MIP images are obtained. COMPARISON: 11/26/2018 FINDINGS: There are no filling defects identified pulmonary arteries. There is no indication of aortic dissection. There is infiltrate at the right lower lobe which is suspicious for pneumonia. There are hazy, less dense infiltrate at the right upper and middle lobes. There is a small right pleural effusion. The left lung appears clear. There is no pneumothorax identified. There is possible wall thickening along the mid and distal esophagus. There are mildly enlarged mediastinal lymph nodes. IMPRESSION: No evidence of pulmonary embolism. Right lower lobe pneumonia. Hazy infiltrates at right upper and middle lobes. Small right pleural effusion. Possible wall thickening along the distal esophagus. Mild mediastinal adenopathy. Electronically signed by Hal Montano 02/26/2019 2:28 PM
--- NOTE | 2019-02-26 19:37 | EKG Report ---
Test Performed on : 02/26/2019 5:56:57 PM Test Reason : EKG Blood Pressure : / mmHG Vent. Rate : 079 BPM Atrial Rate : 079 BPM P-R Int : 188 ms QRS Dur : 142 ms QT Int : 380 ms P-R-T Axes : 027 -60 077 degrees QTc Int : 435 ms Normal sinus rhythm. Left axis deviation Nonspecific intraventricular block Cannot rule out Anteroseptal infarct (cited on or before 26-FEB-2019) Abnormal ECG When compared with ECG of 26-FEB-2019 05:55, (Unconfirmed) Previous ECG has undetermined rhythm, needs review Nonspecific intraventricular block has replaced Right bundle branch block Confirmed by Garret MCLEAN, Dimitry Contreras ([id number]) on 03/02/2019 8:57:45 AM
[2019-02-26] MEDS: MUCINEX PO SCH (20:31)
[2019-02-27] MEDS: LOPRESSOR PO SCH ×3 (03:08→18:32)
[2019-02-27] MEDS: XOPENEX NEB INH SCH ×4 (04:09→22:56)
[2019-02-27] MEDS: CLINDAMYCIN 600 MG/D5W 600 MG/50 ML IVPB IV SCH ×3 (04:45→20:27)
[2019-02-27] MEDS: NS 1,000 ML IV SCH ×3 (05:21→20:27)
[2019-02-27] MEDS: PRILOSEC PO SCH (06:03)
[2019-02-27 06:52] LABS: ALB/GLOB RATIO 1.1; ALBUMIN 2.6 g/dL (3.5-5.0); CALCIUM 7.7 mg/dL (8.8-10.2); CREATININE 1.4 mg/dL (0.7-1.2); POTASSIUM 4.2 mmol/L (3.5-5.1); TOTAL BILIRUBIN 0.45 mg/dL (0.20-1.00); TOTAL PROTEIN 4.9 g/dL (6.3-8.3)
[2019-02-27 07:03] LABS: BASO# 0.03 X1000 (0.0-0.2); BASO% 0.1 % (0.0-0.8); EOS# 0.25 X1000 (0.0-0.7); EOS% 0.9 % (0.0-10.0); HEMATOCRIT 41.2 % (42.0-52.0); HEMOGLOBIN 12.6 g/dL (14.0-18.0); IMM GRAN# 0.38 X1000 (0.0-0.04); IMM GRAN% 1.3 % (0.0-0.5); LYMPH# 0.99 X1000 (1.2-3.4); LYMPH% 3.4 % (20.5-51.1); MCH 28.8 PG (27-31); MCHC 30.6 g/dL (33-37); MCV 94.1 FL (81-99); MONO# 0.85 X1000 (0.11-0.59); MONO% 2.9 % (1.7-9.3); MPV 10.2 FL (7.4-10.4); NEUT% 91.4 % (42.2-75.2); PLT 250 X1000 (130-400); RBC 4.38 XMIL (4.7-6.1); RDW 16.8 % (11.5-14.5)
[2019-02-27 07:13] LABS: INR 1.22; PROTIME 15.6 Seconds (11.0-16.0)
--- NOTE | 2019-02-27 07:37 | EKG Report ---
Test Performed on : 02/27/2019 07:14:08 AM Test Reason : SOB, RVR and ASCAD Blood Pressure : / mmHG Vent. Rate : 073 BPM Atrial Rate : 073 BPM P-R Int : 000 ms QRS Dur : 148 ms QT Int : 386 ms P-R-T Axes : 000 -53 088 degrees QTc Int : 425 ms Atrial fibrillation. with premature ventricular or aberrantly conducted complexes. Left axis deviation Nonspecific intraventricular block Abnormal ECG When compared with ECG of 26-FEB-2019 17:56, (Unconfirmed) Atrial fibrillation. has replaced Sinus rhythm. Confirmed by Garret MCLEAN, Dimitry Contreras ([id number]) on 02/27/2019 9:00:18 AM
[2019-02-27] MEDS: MULTAQ PO SCH ×2 (08:40→20:27)
[2019-02-27] MEDS: MUCINEX PO SCH ×2 (08:40→20:27)
--- NOTE | 2019-02-27 08:53 | CONSULTATION ---
DATE OF CONSULTATION: 02/27/2019 CHIEF COMPLAINT: Hematuria. HISTORY OF PRESENT ILLNESS: Mr. Zurita is an 83-year-old well known to Urology with history of atrial fibrillation,hypogonadism, BPH, and prostate cancer, who presents in consultation regarding hematuria. 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 The patient was treated with IV antibiotics, and ultimately seemed to improve. The patient was then discharged home, however, he became significantly short of breath while home, and was found to be in atrial fibrillation with rapid ventricular rate. The patient has a history of congestive heart failure, pulmonary hypertension. Patient has known for several years he has had prostate cancer, this was again seen after transurethral resection of prostate on 06/23/2018. The patient had 30% Amanda 3 + 3. It was recommend he stop using testosterone cypionate replacement, but patient insisted on continuing. Prior to his TURP, the patient previously was on intermittent catheterization for 12 years. However, he has been able to void spontaneously since. The patient states he was voiding well with clear urine. However, he noticed some blood in his urine yesterday with difficulty emptying his bladder and ultimately had placement of urethral catheter. He says that he had even more pain and discomfort due to the catheter being clotted and subsequently asked for his catheter to be removed. The patient has voided multiple times with reddish urine since then. Urinalysis did show some blood with [id number]-count RBCs. The patient states he is voiding without urgency, frequency, or burning. The patient currently in the ICU, and was started on Lovenox yesterday due to his atrial fibrillation. PAST MEDICAL HISTORY: 1. Coronary artery disease status post myocardial infarction with angiography and stent placement. 2. Congestive heart failure. 3. Paroxysmal atrial fibrillation. 4. Hypertension. 5. Hypogonadism. 6. Prostate cancer. 7. BPH. 8. Intracranial hemorrhage approximately a year ago while on Eliquis and Plavix. PAST SURGICAL HISTORY: 1. Achilles tendon repair. 2. Coronary angiography with stent placement. 3. Transurethral resection of prostate. ALLERGIES: 1. Sulfa. 2. Ambien. MEDICATIONS: 1. Clindamycin 600 mg q.8 hours. 2. Multaq 200 mg p.o. b.i.d. 3. Dopamine 800 mg IV as needed. 4. Lovenox 90 mg subcu q.12 hours. 5. Guaifenesin 600 mg p.o. b.i.d. 6. Levalbuterol 1.25 mg inhalation q.6 hours. 7. Lopressor 25 mg p.o. q.8 hours. 8. Prilosec 40 mg p.o. daily. 9. Zofran 4 mg IV p.r.n. for nausea. 10. Trazodone 100 mg p.o. as needed. 11. Digoxin 250 mg IV as needed. 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 The patient quit smoking in the 1970s. Drinks alcohol infrequently. FAMILY HISTORY: Denies family history of malignancy. REVIEW OF SYSTEMS: A 12 point review of systems performed with all pertinent positives and negatives in HPI. PHYSICAL EXAMINATION: Vital Signs: Temperature 98.7 degrees, heart rate 65, blood pressure 96/49, and oxygen saturation 98% on room air. General: No acute distress resting comfortably in bed. Alert and oriented x3. Respiratory: Good respiratory effort with slight decreased lung sounds in the bases. HEENT: Normocephalic, atraumatic. Pupils equal, round, and reactive to light. Neck: Trachea midline. Respiratory: Regular rate with a regular rhythm. Abdomen: Soft, nontender, and nondistended. No palpable hepatosplenomegaly. : No suprapubic tenderness. No CVA tenderness. Normal phallus with uncircumcised penis. Testicles palpated without asymmetry. Extremities: Legs with no obvious lower extremity edema. Neurologic: Gross motor and sensory intact. Skin: No obvious skin lesions or rashes. LABORATORY: White blood cell count 29.3, hemoglobin 12.6, hematocrit 41.2, and platelets 250,000. Sodium 136, potassium 4.2, chloride 104, bicarb 22, BUN 19, creatinine 1.4, glucose 67, and calcium 7.7. Prealbumin 18.8. Urinalysis shows trace protein with large amount of blood with too- [id number] RBCs with 10 to 20 white blood cells. ASSESSMENT AND PLAN: Mr. Zurita is an 83-year-old with coronary artery disease, congestive heart failure, prior myocardial infarction, atrial fibrillation, and BPH, history of prostate cancer and hypogonadism, who presents in consultation for hematuria. The patient has had multiple episodes of hematuria in the past. However, they seemed to have improved after recent transurethral resection of prostate in June. The patient is voiding spontaneously where he was previously requiring intermittent catheterization for approximately 12 years. Currently, patient seems to be doing relatively well from a voiding standpoint until he was admitted and started on Lovenox due to atrial fibrillation with RVR. I think this is likely leading to the blood in his urine. The patient states that he was voiding without issue prior to this. Looking at prior urinalysis over the past several months seemed to have not shown significant RBCs. I think his hematuria has been worsened by insertion of an indwelling catheter yesterday which was subsequently removed. The patient has been voiding, and it feels like he can empty his bladder to completion, however, continues to have some blood in his urine. The patient has an enlarged prostate even though it is open after transurethral resection of prostate. I do think that long-term the patient may benefit from indwelling catheter if hematuria persists. Discussed this with him. However, he is very hesitant to undergo this at this time as he thinks that it hurts, and would like to hold off on any surgical intervention to his prostate or bladder unless bleeding worsens. I think as long as he is on Lovenox he may continue to bleed. I recommend that he stack his urine, so we can have samples and evaluate whether that is cleared spontaneously. Encouraged him to remain hydrated as much as tolerated with his atrial fibrillation. I think if the patient continues to have blood in his urine, may have to either place indwelling catheter versus perform cystoscopy and fulguration of bleeding. The patient is hesitant to undergo any procedure due to his current respiratory and cardiovascular status. White blood cell count is elevated today at 29. We will obtain a renal ultrasound as his renal function is slightly worse today at 1.4. I think this is likely related to dehydration as he has been having a large amount of diarrhea at home as well as fluid resuscitation. We will continue to monitor from a urologic standpoint. Please call with questions or concerns. cc: MD Maged Arrieta, DO MAGALID
--- NOTE | 2019-02-27 09:02 | Diag Imaging Result Doc PS360 ---
EXAM: US RENAL 2 (RETROPER) COMPLETE HISTORY: Evaluation of STEVE with hematuria TECHNIQUE: Renal ultrasound COMPARISON: 05/25/2018 FINDINGS: Suboptimal imaging due to patient body habitus. The right kidney measures 12.0 x 5.8 x 5.5 cm. Normal renal echotexture and cortical thickness. No stone or hydronephrosis. No definite renal mass. The left kidney measures 12.9 x 6.3 x 5.9 cm. Normal renal echotexture and cortical thickness. No stone or hydronephrosis. No renal mass. The prostate measures 5.6 cm in greatest diameter. Urinary bladder is only mildly distended. IMPRESSION: No definite abnormality. Electronically signed by Trevin Morales 02/27/2019 9:00 AM
[2019-02-27] MEDS: LOVENOX SUBQ SCH ×2 (11:31→22:11)
--- NOTE | 2019-02-27 14:15 | EKG Report ---
Test Performed on : 02/27/2019 2:03:49 PM Test Reason : atrial fibrillation Blood Pressure : / mmHG Vent. Rate : 074 BPM Atrial Rate : 052 BPM P-R Int : 000 ms QRS Dur : 148 ms QT Int : 374 ms P-R-T Axes : 000 -55 064 degrees QTc Int : 415 ms Wide QRS rhythm. Left axis deviation Left bundle branch block Abnormal ECG When compared with ECG of 27-FEB-2019 07:14, Wide QRS rhythm. has replaced Atrial fibrillation. Confirmed by Garret MCLEAN, Dimitry Contreras ([id number]) on 02/28/2019 7:18:36 AM
--- NOTE | 2019-02-27 14:42 | PROGRESS NOTE ---
DATE: 02/27/2019 SUBJECTIVE: The patient relates feeling better. He still has some cough, but denies shortness of breath. He appears to have converted back to sinus rhythm. OBJECTIVE: Vital Signs: Blood pressure 135/76, heart rate 81, oxygen saturation 96%. Neck: There is no significant jugular venous distention. Chest: Clear to auscultation bilaterally. Cardiac: Regular rate and rhythm without appreciable murmur or gallop. Extremities: Without edema. LABORATORY DATA: White blood cell count of 29.3, hematocrit 41.2, hemoglobin 12.6, platelet count 250,000. Sodium 136, potassium 4.2, chloride 104, carbon dioxide 22, BUN 19, creatinine 1.4, glucose 65, albumin 2.6. IMPRESSION: 1. Recurrent atrial fibrillation despite dronedarone, probably provoked by stress of acute noncardiac illness with recurrent aspiration. 2. Paroxysmal atrial fibrillation. 3. Recurrent respiratory problems over the past year, with emerging evidence to support recurrent aspiration due to esophageal dysmotility. 4. Atherosclerotic coronary disease with previous anterior myocardial infarction in the past and associated ischemic cardiomyopathy. Left ventricular ejection fraction of 30%. 5. Hypertensive cardiovascular disease. 6. Status post fall. RECOMMENDATIONS: 1. Continue metoprolol for rate control. 2. Continue Multaq 200 mg p.o. b.i.d. 3. Continue Lovenox for anticoagulation, with plans to transition to Eliquis. 4. Repeat ECG. cc: MD Maged Gross,
--- NOTE | 2019-02-27 18:43 | EKG Report ---
Test Performed on : 02/27/2019 6:07:52 PM Test Reason : SOB, RVR and ASCAD Blood Pressure : / mmHG Vent. Rate : 079 BPM Atrial Rate : 079 BPM P-R Int : 184 ms QRS Dur : 146 ms QT Int : 382 ms P-R-T Axes : 029 -57 091 degrees QTc Int : 438 ms Sinus rhythm. with frequent premature ventricular complexes. Left axis deviation Left bundle branch block Abnormal ECG When compared with ECG of 27-FEB-2019 14:03, (Unconfirmed) Sinus rhythm. has replaced Wide QRS rhythm. Confirmed by Garret MCLEAN, Dimitry Contreras ([id number]) on 02/28/2019 7:19:21 AM
--- NOTE | 2019-02-27 19:41 | PROGRESS NOTE ---
DATE: 02/27/2019 He is in ICU bed #6. This would be hospital day #2, patient having been admitted early yesterday morning for acute respiratory distress secondary to atrial fibrillation with RVR. Patient overnight has been hemodynamically stable. His rate has significantly decreased. Current medications include, but are not limited to, metoprolol 25 mg q.8 h., as well as Multaq 200 mg b.i.d. He has not required long-term use of Cardizem drip for atrial fibrillation and rate control, and he has not required dopamine for pressure support. Perhaps, the most significant findings over the past 24 hours is an attempt at Tomas catheterization resulting in some gross hematuria. Urology has been asked to provide an opinion, he had had a renal ultrasound demonstrating normal-appearing kidneys with a prostate measuring 5.6 cm. Consultative note by Urology recommending that the hematuria is likely secondary to Lovenox and patient has been having no problems with voiding prior to this. An attempt at an indwelling catheter yesterday was unsuccessful and was not continued. Even despite transurethral resection of prostate, his prostate continues to be large, and it is the opinion of the urologist that an indwelling Tomas would be in the patient's shelter best interest. The patient is reluctant to proceed with any type of indwelling Tomas at this time. There is concern that, if the bleeding continues, placement of an indwelling catheter versus performing a cystoscopy to address specific areas of bleeding may be indicated, and again, the patient expresses hesitancy secondary to current respiratory and cardiovascular status. Another concern from yesterday had to do with tachycardia, hypoxia, and elevated D-dimer. A CT scan angiogram of the chest was performed, showing no evidence of pulmonary embolism, but persistence of right lower lobe infiltrate and hazy infiltrates in the right upper lobe and the right middle lobe. Considering that he has been on IV antibiotics for the past 7 days and does not appear to be spontaneously clearing, the right lower lobe noninfectious causes for some persistent right lower lobe infiltrate are considered in the differential diagnosis. OBJECTIVE: Vitals: At 4 o'clock this afternoon, blood pressure 149/85, respirations at 20, pulse at 70, temperature at 98.8 degrees saturating at 94% on room air. Cumulative intakes and outputs: 5.4 L in and 3.2 L out for +2.2 L. HEENT: Normocephalic, atraumatic. Patient is somewhat more disheveled than historical and more lethargic but arousable, communicative, and alert and oriented x3. Cardiovascular: Regular rate and rhythm with occasional ectopic beat. This correlates with monitoring. Lungs are surprisingly clear, perhaps the clearest they have been in the past 7 to 10 days. Abdomen is generally soft without rebound or guarding. There is tenderness in the suprapubic region and the bilateral lower quadrants. Extremities are benign with the exception of trace pitting pretibial edema in the left lower extremity. The right is unremarkable. Cranial nerves 2-12 are grossly intact. ADDITIONAL LABORATORY: White blood cell count elevated at 29.30, hemoglobin and hematocrit down from 15.8 and 50.9 to 12.6 and 41.2, platelets at 250,000. Sodium 136, potassium at 4.2, chloride 104, bicarbonate at 22, BUN 19, creatinine 1.4, calcium at 7.7, pre-albumin low at 18.8, albumin at 2.6 suggesting nutritional compromise with mild to moderate protein malnutrition. Urine culture obtained on admission is negative. Blood cultures obtained on admission are noted to be negative at the time of dictation. IMPRESSION: 1. An 83-year-old with multisystem organ failure, the patient having been admitted with atrial fibrillation with rapid ventricular response, clinically stable with adjustments in medication. He continues on a beta blockade as well as an antiarrhythmic, anticoagulation started per Cardiology service. Now wondering whether this may be contributing towards hematuria events. 2. Gross hematuria likely secondary to recent urethral trauma as well as aggressive anticoagulation for atrial fibrillation and reduction of stroke risk. We will be transitioning him to a lower dose of anticoagulation. 3. With regards to a recent elevated D-dimer but negative pulmonary embolism study, an ultrasound of the bilateral lower extremities with special attention paid to the left lower extremity is anticipated for tomorrow. There is concern that there may be some type of subacute deep vein thrombosis, which has not yet migrated into the pulmonary system. This would certainly be problematic at best and may require continuation of an aggressive anticoagulation plan. 4. Persistence of abnormal chest x-ray and CT findings. It is my opinion that the right lower lobe may be best evaluated and worked up with a bronchoscopy; however, I do not feel that the patient is stable at this time. Considering that he has been on IV antibiotics now for several days and his white blood cell count is increasing, we will be asking the opinion of Infectious Disease for some adjustment in antibiotic management. DISPOSITION: I do think that, considering that his rate is well controlled and he has had no further respiratory decompensation over the past 12 to 18 hours, transition to the step-down unit would not be unreasonable. We will be transitioning him to the floor this evening. The patient understands the course of treatment and plan. No further issues at this time. Note is dictated on the evening of rounds. cc: DO SB Gutierrez
[2019-02-27] MEDS: ULTRACET 37.5MG/325MG PO PRN (22:11)
[2019-02-27] MEDS: DESYREL PO PRN (22:11)
[2019-02-28] MEDS: LOPRESSOR PO SCH ×3 (02:38→18:26)
[2019-02-28] MEDS: XOPENEX NEB INH SCH ×4 (03:51→23:24)
[2019-02-28 05:41] LABS: BASO# 0.02 X1000 (0.0-0.2); BASO% 0.1 % (0.0-0.8); EOS# 0.47 X1000 (0.0-0.7); EOS% 3.2 % (0.0-10.0); HEMATOCRIT 38.6 % (42.0-52.0); HEMOGLOBIN 11.7 g/dL (14.0-18.0); IMM GRAN# 0.32 X1000 (0.0-0.04); IMM GRAN% 2.1 % (0.0-0.5); LYMPH# 1.03 X1000 (1.2-3.4); LYMPH% 6.9 % (20.5-51.1); MCH 28.7 PG (27-31); MCHC 30.3 g/dL (33-37); MCV 94.6 FL (81-99); MPV 10.3 FL (7.4-10.4); NEUT# 12.15 X1000 (1.4-6.5); NEUT% 81.7 % (42.2-75.2); PLT 256 X1000 (130-400); RBC 4.08 XMIL (4.7-6.1); RDW 16.8 % (11.5-14.5); WBC 14.89 X1000 (4.8-10.8)
[2019-02-28] MEDS: PRILOSEC PO SCH ×2 (05:45→06:01)
[2019-02-28] MEDS: CLINDAMYCIN 600 MG/D5W 600 MG/50 ML IVPB IV SCH ×3 (05:45→20:34)
[2019-02-28 06:05] LABS: ALBUMIN 2.6 g/dL (3.5-5.0); CREATININE 1.2 mg/dL (0.7-1.2); POTASSIUM 4.1 mmol/L (3.5-5.1); TOTAL BILIRUBIN 0.33 mg/dL (0.20-1.00); TOTAL PROTEIN 5.1 g/dL (6.3-8.3)
--- NOTE | 2019-02-28 08:46 | Diag Imaging Result Doc PS360 ---
EXAM: CHEST-PORTABLE INDICATION: upper airway expiratory wheezing TECHNIQUE: One view COMPARISON: 02/26/2019 FINDINGS: The infiltrate at the mid and lower lung zone on the right has improved slightly during the interval. No new consolidation is identified. Cardiac silhouette is stable. IMPRESSION: Interval improvement as described. Electronically signed by Terry Bonner 02/28/2019 8:44 AM
[2019-02-28] MEDS: MUCINEX PO SCH ×2 (08:50→20:34)
[2019-02-28] MEDS: MULTAQ PO SCH ×2 (08:50→20:35)
[2019-02-28] MEDS: NS 1,000 ML IV SCH ×2 (11:29→23:58)
[2019-02-28] MEDS: LOVENOX SUBQ SCH (11:30)
--- NOTE | 2019-02-28 14:57 | PROGRESS NOTE ---
DATE: 02/28/2019 SUBJECTIVE: The patient reports feeling better daily. He is no longer on oxygen, and denies any shortness of breath or chest discomfort. He continues in sinus rhythm. He had some hematuria yesterday, probably related to Tomas catheter that was subsequently removed. He relates that hematuria appears to be clearing. OBJECTIVE: Vital Signs: Blood pressure 129/68, heart rate 70, oxygen saturation 100% on room air. Neck: There is no significant jugular venous distention. Chest: Clear to auscultation. Cardiac: Regular rate and rhythm without appreciable murmur or gallop. Extremities: Without edema. LABORATORY DATA: Includes a white blood cell count of 14.89, hematocrit 38.6, hemoglobin 11.7, platelet count 256,000. Sodium 139, potassium 4.1, chloride 105, carbon dioxide 27, BUN 16, creatinine 1.2, glucose 86. IMPRESSION: 1. Recurrent atrial fibrillation, probably provoked by stress of acute noncardiac illness with recurrent aspiration. 2. Paroxysmal atrial fibrillation. He has had fair success with dronedarone. 3. Recurrent respiratory problems over the past year with emerging evidence to support recurrent aspiration due to esophageal dysmotility. 4. Recent hematuria on Lovenox, probably provoked by Tomas catheter. This appears to be clearing. 5. Atherosclerotic coronary disease with previous anterior myocardial infarction in the past with associated ischemic cardiomyopathy with left ventricular ejection fraction 30%. The patient continues without angina or signs of congestive heart failure. 6. Hypertensive cardiovascular disease. RECOMMENDATIONS: 1. Continue metoprolol at current dose. 2. Continue Multaq. 3. Transition from Lovenox to Eliquis. 4. Hematocrit appears to be stable when compared to hematocrits over the previous week of his last hospital stay last week. It would be reasonable for him to be discharged to home in the next 24 hours from a cardiovascular standpoint. cc: MD Maged Gross, DO
[2019-02-28] MEDS: ULTRACET 37.5MG/325MG PO PRN (20:34)
[2019-02-28] MEDS: DESYREL PO PRN (20:34)
[2019-02-28] MEDS: ELIQUIS PO SCH (20:35)
[2019-03-01] MEDS: XOPENEX NEB INH SCH ×3 (03:33→15:44)
[2019-03-01 06:02] LABS: BASO# 0.02 X1000 (0.0-0.2); BASO% 0.2 % (0.0-0.8); EOS# 0.34 X1000 (0.0-0.7); EOS% 2.6 % (0.0-10.0); HEMATOCRIT 36.3 % (42.0-52.0); HEMOGLOBIN 11.3 g/dL (14.0-18.0); IMM GRAN# 0.35 X1000 (0.0-0.04); IMM GRAN% 2.7 % (0.0-0.5); LYMPH# 0.87 X1000 (1.2-3.4); LYMPH% 6.7 % (20.5-51.1); MCH 29.2 PG (27-31); MCHC 31.1 g/dL (33-37); MCV 93.8 FL (81-99); MONO# 0.74 X1000 (0.11-0.59); MONO% 5.7 % (1.7-9.3); MPV 10.2 FL (7.4-10.4); NEUT# 10.64 X1000 (1.4-6.5); NEUT% 82.1 % (42.2-75.2); PLT 242 X1000 (130-400); RBC 3.87 XMIL (4.7-6.1); RDW 16.5 % (11.5-14.5); WBC 12.96 X1000 (4.8-10.8)
[2019-03-01] MEDS: PRILOSEC PO SCH (06:09)
[2019-03-01] MEDS: CLINDAMYCIN 600 MG/D5W 600 MG/50 ML IVPB IV SCH (06:09)
--- NOTE | 2019-03-01 07:34 | EKG Report ---
Test Performed on : 03/01/2019 06:20:34 AM Test Reason : Afib with RVR Blood Pressure : / mmHG Vent. Rate : 071 BPM Atrial Rate : 071 BPM P-R Int : 178 ms QRS Dur : 152 ms QT Int : 392 ms P-R-T Axes : 005 -71 078 degrees QTc Int : 425 ms Sinus rhythm. with premature supraventricular complexes. Left axis deviation Left bundle branch block Abnormal ECG When compared with ECG of 27-FEB-2019 18:07, premature ventricular complexes. are no longer present premature supraventricular complexes. are now present Confirmed by Garret MCLEAN, Dimitry Contreras ([id number]) on 03/02/2019 8:58:19 AM
--- NOTE | 2019-03-01 08:14 | PROGRESS NOTE ---
DATE: 03/01/2019 Unable to access remotely, the chart last evening from home in order to dictate evening round note. Therefore, this note will recap the events of the day for 02/28/2019 and early 03/01/2019. This would be hospital day #4, the patient having been admitted on 02/26/2019 for atrial fibrillation with RVR. Cardiology has continued to provide oversight, and recommending transition to oral anticoagulation and continuation of antiarrhythmic as well as beta blockade. EKG dated 02/27/2019 demonstrating a sinus rhythm with occasional PVCs, a leftward axis secondary to left bundle branch block. EKG for this morning not yet reviewed. Perhaps the most concerning issue continues to be persistent hematuria, this in light of anticoagulation. He has been offered a cystoscopy for addressing the bleeding problem, and/or indwelling Tomas catheter as it relates to potential tamponade of an area which might be bleeding. The patient continues to be opposed to both of those approaches. He continues to have waxing and waning of hematuria, and now at 2 days, has not fully cleared. He remains hemodynamically stable. His hemoglobin and hematocrit are fairly stable, but down from 15 and 50 when he was admitted, to now 11.3 and 36.3. I have advised the patient that it would not be recommended that he be discharged with gross hematuria on anticoagulation, several potential problems, including ongoing hemorrhage and increased cardiac stress and respiratory distress. Chest x-ray obtained yesterday showing some interval improvement in both the right middle infiltrate and the right lower lobe infiltrate. He continues on clindamycin. Antibiotics will be stopped in light of no positive culture and no fever. The white blood cell count continues to remain nonspecifically elevated, and noninfectious causes are still considered within the differential diagnosis. Vitals this morning show blood pressure 137/83, respirations a little tachypneic at 25, pulse at 74, temperature at 97.6 degrees, saturating 97% on room air. I's and O's are 3060 in and 4200 out for negative 1140. Over the past 12 hours, 900 in and 2750 out for negative 1850. Cumulatively, he is approximately 430 mL down for his hospitalization. Laboratory for this morning only is a CBC with white blood cell count 12.96 (this would be the lowest during his admission), hemoglobin and hematocrit 11.3 and 36.3, with platelets at 242,000. CURRENT MEDICATIONS: Include Eliquis 5 mg b.i.d., Multaq 200 mg b.i.d., guaifenesin 600 mg b.i.d., Xopenex respiratory treatments every 6 hours, metoprolol 50 mg once daily, omeprazole 40 mg once daily, IV fluids of normal saline at 75, Zofran as needed, tramadol 1 every 8 hours p.r.n., trazodone 100 mg p.o. at bedtime. PHYSICAL EXAMINATION: HEENT: Unremarkable. Cardiovascular: Regular rate and rhythm with occasional ectopic beat. Lungs: Without rhonchi, but scattered wheezing, primarily in the upper anterior region. Abdomen: Soft, somewhat distended. Nonspecific tenderness in the bilateral lower quadrants, but without guarding or rigidity. Extremities: There continues to be some trace pitting edema in the left lower extremity on exam. Neurologic: Cranial nerves II through XII are grossly intact. The patient is alert and oriented x3 without any cognitive deficiencies. IMPRESSION: An 83-year-old with multiple medical problems, including known coronary disease complicated by congestive heart failure by recent echocardiogram, now further complicated by atrial fibrillation with rapid ventricular response. He is currently on antiarrhythmic as well as anticoagulant, now with complications of hematuria. The patient reports a previous waxing and waning history of hematuria, and is very resistant to any diagnostic or therapeutic approach at managing the hematuria. There has never been any formal imaging study of the patient's abdomen and pelvis despite known history of prostate cancer. Last PSA in the hospital record noted to be 26.3. This was in 06/2013. I have recommended a CT scan of the abdomen and pelvis, followup on venous Doppler ultrasound obtained yesterday for the unilateral and nonspecific edematous changes in the lower extremity on the left. I have strongly encouraged the patient to reconsider opposition to any further urologic intervention. If he was to be discharged over the course of the next several days without any further urologic intervention, it would be against medical advice. I will round later this evening with regards to followup on CT scan for any potential new findings or concerns, as well as hopefully the venous Doppler ultrasound will be completed by then. The patient may actually benefit from some type of antispasmodic agent with regards to urologic concerns. Urology has not provided a note for record since his admission, and has not been by to see the patient. No new and/or additional recommendations at this time. Note is dictated on the morning of rounds. cc: Maged Chan DO
[2019-03-01] MEDS ORDERED: TOPROL XL PO SCH (09:00)
[2019-03-01] MEDS: MULTAQ PO SCH (09:29)
[2019-03-01] MEDS: MUCINEX PO SCH (09:29)
[2019-03-01] MEDS: ELIQUIS PO SCH (09:29)
--- NOTE | 2019-03-01 09:48 | Diag Imaging Result Doc PS360 ---
CT ABD/PELVIS W/PO AND IV CON - 03/01/2019 INDICATION: ABD pain, hematuria, prostate cancer, COMPARISON: None FINDINGS: There are extensive infiltrates in the right middle and lower lobes. There is probably some mild edema or fibrosis in the left lung base as well. There is a small right pleural effusion. There is moderate bilateral hydroureteronephrosis. There is significant bilateral renal cortical scarring. No masses. No renal atrophy. The urinary bladder is somewhat distended with some mild trabeculation and wall thickening compatible with chronic hypertension. There is some dystrophic calcification in the central and right posterior peripheral zones of the prostate. Overall size of the prostate is grossly normal. The rectum is normal. There is some right external iliac pelvic lymphadenopathy. There is some soft tissue fullness of the abdominal musculature here as well. The liver, gallbladder, spleen, pancreas, and adrenals are normal. No bowel obstruction or inflammation. There is significant flank edema. There is a moderately large fat-containing left inguinal hernia. There are advanced degenerative changes of the spine. No acute or suspicious bony lesion. IMPRESSION: 1. Multilobar right-sided pneumonia. Small right pleural effusion. Mild pulmonary fibrosis. 2. Severe chronic urinary bladder hypertension. Bilateral hydroureteronephrosis as a result. 3. Abnormal dystrophic calcifications of the prostate gland mainly in the right posterior peripheral zone. 4. Soft tissue fullness and adenopathy at the right external iliac location, nonspecific. 5. Significant flank edema. This exam was performed using automated exposure control, adjustment of mA or kV according to patient size, and/or use of iterative reconstruction technique Electronically signed by Jaden Toussaint 03/01/2019 9:45 AM
--- NOTE | 2019-03-01 09:59 | PROGRESS NOTE ---
DATE: 03/01/2019 SUBJECTIVE: No acute events overnight. The patient denies any shortness of breath or chest pain this mooning. The patient continues to have hematuria. He says this continues to clear. He says he passed several small clots, but these are much less frequent per his report. He feels that he is emptying his bladder to completion. He does have some frequent urination. He says he voids every hour. The patient has a long history of urinary frequency, and has had persistent frequent urination throughout the past year. The patient was previously catheterizing every hour due to sensation of frequency within the bladder. Since his transurethral resection of prostate, the patient has been voiding every 1 to 2 hours. The patient states he has a large amount of blood in his stool as well, which concerns him. He is uncertain of the etiology of this. States he is tolerating a diet. Denies any shortness of breath or chest pain. OBJECTIVE: Vital signs: Temperature 98.4 degrees, heart rate 58, blood pressure 139/62 and oxygenation 96% on room air. General: No acute distress. Resting on the bed. Alert and oriented x3. Respiratory: Good respiratory effort without audible wheezing or rales. Abdomen: Soft, nontender, and nondistended. No palpable masses or hepatosplenomegaly. : No suprapubic tenderness. No CVA tenderness. Musculoskeletal: Moving all extremities. LABORATORY: White blood cell count 12.9, hemoglobin 11.3, hematocrit 36.3, and platelets 242,000. BMP from yesterday showed sodium 139, potassium 4.1, chloride 105, bicarb 27, BUN 16, creatinine 1.2, glucose 86, and calcium 8. Urine culture showed no growth from 02/26/2019. Renal ultrasound 02/27/2019 showed normal kidneys bilaterally with no obstruction, renal mass, or nephrolithiasis. The patient has an enlarged prostate measuring 5.6 cm in greatest diameter. ASSESSMENT AND PLAN: Mr. Zurita is an 83-year-old with coronary artery disease, congestive heart failure probable myocardial infarction, atrial fibrillation, BPH, prostate cancer and hypogonadism who presents in consultation regarding hematuria. The patient was diagnosed with prostate cancer approximately "20 years ago" per his report. The patient underwent transurethral resection of prostate due to retention and persistent hematuria back in June, and was found to have Amanda 3 + 3 prostate cancer at that time. I recommended that he undergo multiple imaging studies on several occasions including a CT of abdomen and pelvis and bone scan due to prostate cancer with worsening PSA and back pain. The patient has refused several times prior. Encouraged him to proceed with treatment for his prostate cancer, but the patient states he has had it for so long that he does not think that it causes him any issue. The patient continues to have hematuria since he has been inpatient. It seems to be clearing, but he does have some clots in his bedside urinal today. Urine is very light pink with 2 clots present at the base. The patient seems to be emptying his bladder to completion. He has had low PVR's. He describes having more concentrated bloody urine in the mornings and at night than during the daytime. I think it is related to his hydration status. The patient states he is drinking multiple cups of water every hour, which could be leading to his urinary frequency. We had tried him on anticholinergics previously, but the patient stopped taking them. I talked with him again about using anticholinergics to see if this helps with his urinary frequency and urgency. The patient is more receptive to this. However, he would like to hold off as he feels that his urination is improving. I talked with him. He is scheduled to have a CT of the abdomen and pelvis performed later today. We will follow up results. I told him if his hematuria persists, we should consider cystoscopy and clot evacuation due to the persistency of his hematuria. The patient remains hesitant to undergo any surgical intervention. I have told him if his hematuria persists, and he has a large amount of clot in his bladder on the CT scan that he likely would need this to expedite his discharge home. The patient's hemoglobin and hematocrit are slowly downtrending at 11.3 and 36.3 today. The patient states he has had a large amount of blood in his stool. The patient is on anticoagulation with Eliquis 5 mg b.i.d. started yesterday. The patient's hope was that the his bleeding continues to improve as he seems to be very hesitant to undergo any surgical intervention. If the patient has persistent blood in his urine, would recommend cystoscopy and clot evacuation tomorrow. The patient is hesitant and wants to hold off until after the talks to GI doctors at [place] next Jeri. I again recommended to him today that if he continues to have blood in his urine, he would consider proceeding to have a clot evacuation. We will continue to monitor from a urologic standpoint while inpatient. Please call with questions or concerns. cc: MD Maged Arrieta, DO MAGAL[facility]
--- NOTE | 2019-03-01 14:52 | PROGRESS NOTE ---
DATE: 03/01/2019 SUBJECTIVE: The patient continues without chest discomfort or shortness of breath on room air. He continues to have hematuria and has, indeed, passed a few clots. Some of his urine is still in the bedside urinal and, indeed, there are a few clots at the bottom. He describes straining to empty his bladder in the wee hours of the morning and then his urine finally lets loose. He has also noted some blood in his stools. OBJECTIVE: Vital Signs: Blood pressure 118/54, heart rate 65, oxygen saturation 100%. There is no significant jugular venous distention. Chest is clear to auscultation. Cardiac Examination: Reveals a regular rate and rhythm without appreciable murmur or gallop. Extremities are without edema. Laboratory Data: Includes a white blood cell count of 12.96, hematocrit 36.3, hemoglobin 11.3, platelet count 242,000. IMPRESSION: 1. Recent recurrent episode of atrial fibrillation, probably provoked by stress of acute noncardiac illness with recurrent aspiration. 2. Paroxysmal atrial fibrillation. 3. Recurrent respiratory problems over the past year with emerging evidence to support recurrent aspiration due to esophageal dysmotility. 4. Persistent problems with hematuria on anticoagulation. Although recent urethral trauma related to Tomas catheter placement may be a precipitating factor, he continues to have hematuria and has passed a few clot, and has also had some blood noted in his stools. 5. Atherosclerotic coronary disease with previous anterior myocardial infarction in the past with associated ischemic cardiomyopathy. Left ventricular ejection fraction around 30%. He continues without angina nor signs of congestive heart failure. 6. Prostate cancer. 7. Hypertensive cardiovascular disease. RECOMMENDATIONS: 1. Continue current cardiovascular regimen unchanged with exception of discontinuing of Eliquis. 2. Discontinue Eliquis and switch back to aspirin daily beginning tomorrow. Certainly, anticoagulation might be considered again in the future if the issue of hematuria is remedied as well as the problem with blood in his stools. For now, it would appear best to leave him off anticoagulation. cc: MD Maged Gross, DO
[2019-03-01] MEDS: NS 1,000 ML IV SCH (16:02)
[2019-03-01 17:03] VITALS: BP 126/63
[2019-03-02] MEDS ORDERED: ASPIRIN PO SCH (09:00)
--- NOTE | 2019-03-02 13:17 | Extremity Venous Study ---
PROCEDURE NAME: Venous U/S Bilateral Legs - 02/28/2019 DATE OF STUDY: 02/28/2019. REQUESTING PROVIDER: Dougie Chan ASPHALT SPREADER OPERATOR: [place]. INDICATIONS: Elevated D-dimer with left lower extremity edema. EQUIPMENT: [employer] Interactive Vivid E9 ultrasound system and a 9 L-D transducer. FINDINGS: Images of the bilateral lower extremity venous systems were obtained in both sagittal and transverse planes. Doppler was used to evaluate veins for spontaneity, phasicity, respiratory excursion, and digital augmentation. RESULTS: Normal venous compression. Normal venous flow. No obvious superficial or deep venous thrombosis noted. INTERPRETATION: Essentially normal bilateral lower extremity venous study. cc: MD Maged Caba, DO
--- NOTE | 2019-03-02 17:09 | DISCHARGE SUMMARY ---
ADMISSION DATE: 02/26/2019 DISCHARGE DATE: 03/01/2019 DISCHARGE DIAGNOSES: 1. Atrial fibrillation with rapid ventricular response. 2. Traumatic Tomas placement resulting in hematuria further exacerbated by gross hematuria while anticoagulated for atrial fibrillation with rapid ventricular response. 3. Anemia. Hemoglobin and hematocrit falling from 15.8 and 50.9 to 11.3 and 36.3. 4. Leukocytosis etiology queried likely multifactorial. White blood cell count at the time of discharge 12.96. 5. Acute respiratory distress secondary to atrial fibrillation with rapid ventricular response on admission. PO2 at 49, pCO2 at 27. 6. Moderate protein malnutrition manifested by albumin at 2.6 and pre-albumin at 18.8. 7. Elevated lactate level. 8. Abnormal CT with findings consistent with multilobar right-sided pneumonia complicated by small right-sided pleural effusion, evidence of chronic bladder hypertension, evidence of abnormality on the right posterior peripheral prostate gland. Nonspecific fullness and adenopathy in the right external iliac. Etiology is queried and nonspecific. CONSULTATIONS DURING ADMISSION: Include Cardiology for recommendations for Multaq failure and Urology for a gross hematuria. PROCEDURES DURING ADMISSION: 1. CT scan of the abdomen and pelvis on 03/01/2019. 2. Bilateral venous Doppler ultrasound which is pending at the time of discharge. 3. Renal ultrasound on 02/27/2019. 4. Pulmonary angiogram on 12/27/2018 without evidence of pulmonary embolism. MEDICATIONS AT TIME OF DISCHARGE: 1. Aspirin 81 mg of once daily. 2. Multaq 200 mg p.o. b.i.d. 3. Mucinex 600 mg p.o. b.i.d. 4. Metoprolol 50 mg once daily. 5. Prilosec 40 mg once daily. 6. Tramadol 1 p.o. q.8 hours p.r.n. 7. Trazodone 100 mg p.o. at bedtime p.r.n. HOSPITAL COURSE: Mr. 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 Based on his tenuous respiratory status, he was placed in the ICU. Cardiology was consulted. Patient was restarted on a beta blockade after failing to tolerate Cardizem drip secondary to hypotensive and after failing to spontaneously convert on IV digoxin. After 24 hours in the unit, the patient's heart rate slowed and then spontaneously converted back into sinus rhythm with increased both atrial and ventricular ectopy, and has maintained a sinus rhythm with occasional PVCs for the duration of his hospitalization. Having provided a large dose of Lasix in the emergency room, it was felt the patient would benefit from an indwelling Tomas catheter. However this was traumatic in nature during placement resulting in discomfort. This was not continued at the patient's request, however, being anticoagulated with Lovenox he started to experience a gross hematuria. Patient has a previous history of prostate cancer discovered in June of this year, and has opted out of any further surgical intervention. He opted out of exploratory cystoscopy with dressing and bleeding, and he also opted out of any indwelling Tomas which may provide him some temporary relief while the urethra heals. The CT scan of the abdomen and pelvis was obtained on the day of discharge, with none for comparison demonstrating findings as mentioned in the report. Extensive conversations with the patient during hospitalization, regarding the need for further urologic assessment with regards to hematuria. The patient opting to follow this clinically. Eliquis was changed to aspirin secondary to ongoing hemorrhagic risk. The patient is very interested in trying to make an appointment with the [facility] in [place] early next week. I have cautioned him that despite having a good report and several options for esophageal dysmotility that this will only be one of many problems that he will be left with. He will continue to have advanced coronary disease and systolic dysfunction. He will continue to have a non resolving infiltrate in the right middle and right lower lobe complicated by small pleural effusion. He will continue to have prostate cancer. He will continue to have likely intermittent hematuria. DISPOSITION: The patient is released with interval followup in the next 7 to 10 days. He has an important meeting of a group of friends tomorrow morning. It is a birthday breakfast, and is requesting to be discharged tonight. I see no clinical contraindication to let him go, however, he continues to have intermittent hematuria. At this point with the patient opting out of any further aggressive evaluation, I do not see a reason to keep him in the hospital. We will be discharging him to home with the medicines as mentioned above. The patient understands the course of treatment and plan. No further issues at this time. Note is dictated on the evening of discharge. cc: Maged Chan DO
== END 2019-03-01 18:00 | disposition home or self-care (01) | DRG 308 ==
LOC: ED 04:00 → ICU 05:13 → 2N 02-27 21:36
PROVIDERS: ADMIT Internal Medicine; ATTEND Internal Medicine